=== PATIENT | male | born 1940 | race Caucasian/White ===

== ENCOUNTER 2016-07-25 07:22 | Day surgery (SDC) | payer MEDICARE ==
[2016-07-23 15:08] VITALS: BMI 24.9
[2016-07-25 08:05] LABS: INR 0.94 (0.93-1.08); PARTIAL THROMBOPLASTIN TIME 25.5 Seconds (23.7-30.8)
[2016-07-25 08:11] VITALS: TEMP 97.7
[2016-07-25] MEDS ORDERED: Midazolam 2 MG/2 ML VIAL ONE (09:54)
[2016-07-25] MEDS ORDERED: Lidocaine 2% Inj (20ml) ONE (09:54)
[2016-07-25] MEDS ORDERED: Iodixanol 320 MG/ML 200 ML BOTTLE IV ONE (09:55)
[2016-07-25] MEDS ORDERED: Sodium Chloride 0.9% 1,000 ML IV SCH (11:00)
[2016-07-25 13:05] VITALS: RESP 16; O2SAT 99
[2016-07-25 13:06] VITALS: BP 110/60; PULSE 67
--- NOTE | 2016-07-25 14:33 | CARDCATH ---
PROCEDURE DATE: 07/25/2016 PROCEDURES: 1. Selective left and right coronary angiography. 2. Left ventriculography. 3. Right femoral arteriography. 4. Angio-Seal deployment. HISTORY OF PRESENT ILLNESS: This is a 76-year-old man with multiple cardiac risk factors and a prior stress test which showed evidence of ____olateral ischemia. He is in need of surgery for removal of a thigh mass and preoperative cardiac evaluation was advised. INDICATION: Abnormal stress test. FINDINGS: HEMODYNAMICS: The aortic pressure was 140/76 with left ventricular pressure of 140/16. CORONARY ANATOMY: 1. The left mainstem was normal. 2. The left anterior descending artery had a 40% tapering in its early midportion. The vessel was l arge and wrapped around the apex. The diagonal branches had no significant disease. 3. The left circumflex artery was totally occluded in its early midportion. Left to left and right to left collaterals are noted to the distal obtuse marginal branches. 4. The right coronary artery was of moderate size and dominant. This had a tubular 50% lesion in th e early midportion of the vessel and mild irregularities distally. LEFT VENTRICULOGRAPHY: The left ventriculogram was performed with hand injection only in the MADDO[employer] pro jection. This revealed normal wall motion with an ejection fraction of 60%. Mitral regurgitation wa s not assessed. There was no aortic valve gradient noted on catheter pullback. RIGHT FEMORAL ARTERIOGRAPHY: Right femoral arteriogram revealed no evidence of significant disease a nd appropriate level of arterial puncture. The puncture site was then closed with deployment of an A ngio-Seal device. CONCLUSION: 1. Occluded left circumflex artery with right to left and left to left collaterals. 2. Moderate mid left anterior descending and mid right coronary artery disease. 3. Normal left ventricular systolic function. RECOMMENDATIONS: At this time, medical therapy and risk factor control were advised. From a cardiac standpoint, he appears stable to proceed with his surgery as planned. He is at mildly increased ris k, but this is clearly acceptable at the present time. He also appears optimized at this time as wel l. Continued followup will be arranged. Deyvi Louis MD cc:Kristy Davies MD; Doug Salguero MD [id number] TT: 07/25/2016 14:33:11 mn
== END 2016-07-25 15:10 | disposition home or self-care (01) ==
LOC: CATH 07:22
PROVIDERS: ATTEND Internal Medicine Cardiovascular Disease
DX: I25.10 Atherosclerotic heart disease of native coronary artery without angina pectoris (principal); I10 Essential (primary) hypertension; E11.8 Type 2 diabetes mellitus with unspecified complications; E78.5 Hyperlipidemia, unspecified; Z79.84 Long term (current) use of oral hypoglycemic drugs
CPT/HCPCS: 36415; 85610; 85730; 86850; 86900; 93458; 99152; C1760; C1769; C2629; J1644; J2250; J3010; J7040 ×2

== ENCOUNTER 2016-08-01 06:27 | Day surgery (SDC) | payer MEDICARE ==
[2016-07-18 09:20] VITALS: BMI 24.9
[2016-08-01] MEDS ORDERED: Bupivacaine 0.5% Inj(30mL) ONE (07:37)
[2016-08-01] MEDS ORDERED: Propofol 10 mg/ml Inj (20 ML) ONE (07:42)
[2016-08-01] MEDS ORDERED: Lidocaine 1% Inj (20ml) ONE (07:43)
[2016-08-01] MEDS ORDERED: Succinylcholine 200 mg/10 ml Inj IV ONE (07:50)
[2016-08-01] MEDS ORDERED: ePHEDrine 50 mg/ml Inj ONE (08:30)
[2016-08-01] MEDS ORDERED: Lactated Ringer's 1,000 ML IV SCH (09:39)
[2016-08-01] MEDS ORDERED: HYDROmorphone 0.5 mg/0.5 ml ISec IVP PRN (09:39)
--- NOTE | 2016-08-01 09:39 | PCM.SURG1 ---
Surgeon's Initial Post Op Note - Surgeon's Notes Surgeon: Jose M Branch Chief: Wendie PGY2, Nazia PGY1 Type of Anesthesia: General Endo, Local Pre-Operative Diagnosis: Left thigh mass Operative Findings: Large ~20cm symetrical, firm thigh mass Post-Operative Diagnosis: left thigh mass Operation Performed: excision of left thigh mass w. advancement flap closure Specimen/Specimens Removed: Left thigh mass Estimated Blood Loss: EBL {In ML}: 25 Blood Products Given: N/A Drains Used: No Drains Post-Op Condition: Good Date of Surgery/Procedure: 08/01/16 Time of Surgery/Procedure: 09:39
[2016-08-01 10:53] VITALS: PULSE 75; RESP 20; TEMP 97.5; O2SAT 95
--- NOTE | 2016-08-01 11:47 | OP ---
PROCEDURE DATE: 08/01/2016 PREOPERATIVE DIAGNOSIS: Large 15 cm x 12 cm left thigh mass. POSTOPERATIVE DIAGNOSIS: Large 15 x 12 cm left thigh mass. PROCEDURE PERFORMED: 1. Wide and deep excision of the left thigh mass. 2. Advancement flap closure of a 15 cm x 12 cm wound on the left thigh. SURGEON: Doug Salguero MD. GLOBAL LOGISTICS MANAGER: Dr. Pressley and Dr. Degroot. ANESTHESIOLOGIST: Dr. Douglass. ANESTHESIA: General endotracheal anesthesia. ESTIMATED BLOOD LOSS: Minimal. SPECIMEN: Left thigh mass. INDICATION: The patient is a 76-year-old male with history of uncomfortable mass on the left anterior thigh, which he noticed several months ago, and has been slowly increasing in size. The patient was concerned when the mass became fairly large and came for evaluation when he was scheduled for the excision of the mass. DESCRIPTION OF PROCEDURE: The patient was brought to the operating room and placed on the operating table in supine position. The patient was connected to the EKG, blood pressure, and pulse oximeter monitors. The patient then underwent general endotracheal anesthesia and was prepped and draped in usual sterile fashion. First, a standard timeout procedure took place, and everybody in the room agreed as to the patient's identity, diagnosis, and procedure to be performed. The side of surgery was marked with initials. First, a marker was used in order to [place] the line of excision where this was marked at about 2.5 cm outside the area where there were any changes. Once those lines were made and continued for the entire mass, I then proceeded with infiltration of that skin with lidocaine. Next, using #15 blade, an incision was made along the previously marked line, and the incision was carried through into the subcutaneous fat. Using electrocautery, the skin outside the lesion was now carefully elevated with some of the underlying fat, and the line of incision was carried down to the muscle fascia. Once this was done around the entire lesion, I then carefully proceeded with mobilizing the lesion off the fascia. It appeared that there were no adhesions between the mass and the fascia. There was no evidence of any infiltration in the area that would indicate of a spread of the mass into the underlying muscle and fascia. Once it was completely detached from the fascia, the area was copiously irrigated, and all the bleeding points were cauterized. We then proceeded raising flaps, both medially all the way into the groin and laterally on the lateral aspect of the thigh. About 10 cm-15 cm of the skin with fat were mobilized laterally and medially in order to reapproximate this wound and closed it. The wound was then closed using interrupted 2-0 Vicryl stitches for deep dermal layer, 2-0 dissolvable barbed stitch for the skin and several interrupted vertical mattress nylon stitches for reinforcement of the wound. Dermabond dressing was applied to the wound. The patient tolerated the procedure well and there were no complications. The mass was sent for pathology. The patient was awakened, extubated, and transferred to recovery room for further observation. Doug Salguero MD cc: [id number] TT: 08/01/2016 11:46:51 jn MTDD
[2016-08-01 12:37] VITALS: BP 142/68
== END 2016-08-01 12:30 | disposition home or self-care (01) ==
LOC: SDS 06:27
PROVIDERS: ATTEND General Practice
DX: C83.35 Diffuse large B-cell lymphoma, lymph nodes of inguinal region and lower limb (principal); E11.9 Type 2 diabetes mellitus without complications; I10 Essential (primary) hypertension
CPT/HCPCS: 14021; 88305; 88331; J0330; J0690; J1170; J1885; J2704; J3010; J7120 ×2

== ENCOUNTER 2016-09-26 11:33 | Day surgery (SDC) | payer MEDICARE ==
[2016-07-23 15:08] VITALS: BMI 24.9
[2016-09-26 11:57] LABS: ADD MANUAL DIFF? NO
[2016-09-26 11:58] LABS: BASO # 0.04 K/mm3 (0.0-2.0); BASO % 0.5 % (0.0-3.0); EOS # 0.3 (0.0-0.7); EOS % 4.1 % (1.5-5.0); GRAN # 4.47 (1.4-6.5); GRAN % 61.1 % (50.0-68.0); HEMATOCRIT 38.1 % (42.0-52.0); LYMPH # 1.9 (1.2-3.4); LYMPH % 26.1 % (22.0-35.0); MEAN CELL VOLUME 89.4 fL (80.0-105.0); MEAN CORPUSCULAR HEMOGLOBIN 30.5 pg (25.0-35.0); MEAN CORPUSCULAR HGB CONC 34.1 g/dl (31.0-37.0); MONO # 0.6 (0.1-0.6); MONO % 8.2 % (1.0-6.0); PLATELET COUNT 192 10^3/uL (120.0-450.0); RED CELL DISTRIBUTION WIDTH 12.8 % (11.5-14.5); WHITE BLOOD COUNT 7.3 10^3/ul (4.5-11.0)
[2016-09-26 12:08] LABS: BLOOD UREA NITROGEN 18 mg/dL (7-21); CALCIUM 9.1 mg/dL (8.4-10.5); CARBON DIOXIDE 24 mmol/L (21-33); CHLORIDE 100 mmol/L (98-107); GFR AFRICAN-AMERICAN > 60; GLUCOSE,RANDOM 156 mg/dL (70-110); POTASSIUM 4.7 mmol/L (3.6-5.0); SODIUM 134 mmol/L (132-148)
[2016-09-26 12:09] LABS: INR 0.94 (0.93-1.08); PARTIAL THROMBOPLASTIN TIME 25.3 Seconds (23.7-30.8)
[2016-09-26] MEDS ORDERED: Lidocaine 2% Inj (20ml) ONE (12:09)
[2016-09-26 12:33] VITALS: TEMP 97.6
--- NOTE | 2016-09-26 12:45 | CP.SDSHP ---
Same Day Surgery H & P - History Proposed Procedure: Venous port Pre-Op Diagnosis: Lymphoma, need venous port for chemo - Previous Medical/Surgical History Cardiac: ASHD/CAD Endocrine/Metabolic: Diabetes Previous Surgical History: left thigh surg to remove tumor which was diagnosed as lymphoma, cardiac cath Apirl 2017 with single vessel LCX disease with colatterals - Allergies Allergies: Allergies No Known Allergies Allergy (Verified 11/30/14 08:30) - Current Medications Current Medications: Glipizide, metformin, metoprolol, ecotrin, simvastatin, zestril, mvt. - Physical Exam Vital Signs: Vital Signs 09/26/16 12:23 Temperature 97.6 F Pulse Rate 81 Respiratory 20 Rate Blood Pressure 140/77 O2 Sat by Pulse 98 Oximetry Mental Status: Alert & Oriented x3 Neuro: WNL Heart: WNL Lungs: WNL GI: WNL - {Optional Preform as Required} Abdomen: WNL Other Pertinent Findings: Left thigh scar - Impression Impression: 76 M with h/o single vessel CAD with collaterals, not symptomatic, NIDDM, HTN with recent dianosis of Lymphoma for venous port insertion under, mild sedation and local. Would recommend to his metoprolol dose prior to surg, which has been ordered. Other alba no contraindication for surg. Short Stay Discharge - Short Stay Discharge Admitting Diagnosis/Reason for Visit: LYMPHOMA C85.80 Disposition: HOME/ ROUTINE Referrals: Kristy Davies MD [Primary Care Provider] -
[2016-09-26] MEDS ORDERED: Midazolam 2 MG/2 ML VIAL ONE ×2 (13:21→13:41)
[2016-09-26] MEDS ORDERED: Oxycodone/Acetaminophen 5/325 mg Tab PO PRN (14:25)
[2016-09-26] MEDS ORDERED: Sodium Chloride 0.45% 1,000 ML IV SCH (14:30)
[2016-09-26 14:44] VITALS: RESP 20
--- NOTE | 2016-09-26 14:47 | VASCULAR ---
PROCEDURE: Ultrasound and fluoroscopic right internal jugular venous access port. CLINICAL HISTORY: Diffuse B-cell lymphoma left thigh.Venous port for chemotherapy. PHYSICIAN(S): Mitchell Wilkerson M.D. TECHNIQUE: The relative risks and indications of the procedure were explained to the patient his and consent obtained. The patient was placed supine on the arteriogram table and the right neck and chest prepped and draped in the usual sterile fashion. Conscious sedation monitoring was provided throughout the procedure by a nurse. Antibiotics were given prior to the procedure. Under direct ultrasound guidance, the right internal jugular vein was punctured with a micro-puncture set. A 0.035 angled Glidewire was advanced into the IVC. A 4 cm incision was below the right clavicle and the pocket blunted dissected. A 8 [place] single-lumen catheter, 22 cm long, was advanced to the SVC/RA junction. The catheter was trimmed and attached to the port. The port aspirates and injects easily. The port was placed in the pocket and closed in 2 layers. The patient tolerated the procedure well. IMPRESSION: Ultrasound and fluoroscopically placed right internal jugular venous access port.
[2016-09-26 14:56] VITALS: O2SAT 99
[2016-09-26 15:40] VITALS: BP 140/67; PULSE 69
== END 2016-09-26 15:30 | disposition home or self-care (01) ==
LOC: SDSVAS 11:33
PROVIDERS: ATTEND Radiology Vascular & Interventional Radiology
DX: C85.95 Non-Hodgkin lymphoma, unspecified, lymph nodes of inguinal region and lower limb (principal); I25.10 Atherosclerotic heart disease of native coronary artery without angina pectoris; E11.9 Type 2 diabetes mellitus without complications
CPT/HCPCS: 36415; 36561; 76937; 77001; 80048; 85025; 85610; 85730; C1769; C1788; J0690; J1644; J2250; J2405; J3010; J7030

== ENCOUNTER 2017-03-21 09:19 | Inpatient (IN) | payer MEDICARE ==
[2017-03-21] MEDS ORDERED: NOREPINEPHRINE BIT/0.9 % NACL 4 MG/250 ML BAG IV ONE (09:27)
[2017-03-21] MEDS ORDERED: Ketamine 10 mg/ml Inj (20 ml) ONE (09:29)
[2017-03-21 09:30] VITALS: BMI 23.5
[2017-03-21] MEDS ORDERED: Vancomycin 1gm in NS 250ml 1 GM/250 ML BAG IVPB STA (09:37)
[2017-03-21] MEDS ORDERED: Piperacill/Tazo 4.5gm in NS 4.5 GM/100 ML BAG IVPB STA (09:37)
[2017-03-21] MEDS ORDERED: Sodium Chloride 0.9% 1,000 ML IV ONE (09:37)
[2017-03-21 09:45] LABS: VENOUS BLOOD GAS BASE EXCESS 3.2 mmol/L (0.0-2.0); VENOUS BLOOD PH 7.36 (7.32-7.43)
--- NOTE | 2017-03-21 09:45 | ED PDOC ---
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 The EMS states the patient last night began feeling weak and weak with no injuries. Family denies any LOC or changes in behavior after fall. This morning the family found the patient lethargic and unresponsive, family states the patient vomited this morning. HPI & ROS limited due to patient's clinical condition. PMD: Dr. Lopez Hem/Onc: Dr. Huang Algorithm Developer: Dr. Louis/Antonio Time/Duration: Prior to Arrival Symptom Onset: Sudden Symptom Course: Unchanged Activities at Onset: Rest Context: Home Past Medical History - Provider Review Nursing Documentation Reviewed: Yes - Infectious Disease Hx of Infectious Diseases: None - Cardiac Hx Cardiac Disorders: Yes Hx Hypertension: Yes Hx Pacemaker: No - Pulmonary Hx Respiratory Disorders: No - Neurological Hx Neurological Disorder: No Hx Paralysis: No - HEENT Hx HEENT Disorder: No - Renal Hx Renal Disorder: No - Endocrine/Metabolic Hx Endocrine Disorders: Yes Hx Diabetes Mellitus Type 2: Yes - Hematological/Oncological Hx Blood Disorders: Yes Hx Blood Transfusions: No Hx Cancer: Yes (Stage 1 lymphoma) Hx Chemotherapy: Yes (03/16/2017) - Musculoskeletal/Rheumatological Hx Musculoskeletal Disorders: No - Gastrointestinal Hx Gastrointestinal Disorders: No - Genitourinary/Gynecological Hx Genitourinary Disorders: No - Psychiatric Hx Emotional Abuse: No Hx Physical Abuse: No Hx Substance Use: No - Surgical History Other/Comment: R chest port - Anesthesia Hx Anesthesia: Yes Hx Anesthesia Reactions: No Hx Malignant Hyperthermia: No - Suicidal Assessment Feels Threatened In Home Enviroment: No Family/Social History - Physician Review Nursing Documentation Reviewed: Yes Family/Social History: No Known Family HX Smoking Status: Never Smoked Hx Alcohol Use: No Hx Substance Use: No Allergies/Home Meds Allergies/Adverse Reactions: Allergies No Known Allergies Allergy (Verified 03/21/17 11:27) Home Medications: Home Meds Medication Instructions Recorded Confirmed Glipizide 10 mg PO BID 11/29/14 03/21/17 Metformin HCl [Metformin] 500 mg PO BID 11/29/14 03/21/17 Simvastatin 20 mg PO HS 11/29/14 03/21/17 Aspirin [Ecotrin] 81 mg PO DAILY 07/18/16 03/21/17 Lisinopril [Zestril] 10 mg PO DAILY 07/18/16 03/21/17 Metoprolol Tartrate [Lopressor] 25 mg PO DAILY 07/18/16 03/21/17 Multivit-Min/FA/Lycopen/Lutein 1 tab PO DAILY 07/18/16 03/21/17 [Centrum Silver Tablet] Allopurinol [Zyloprim] 100 g PO DAILY 03/21/17 03/21/17 Review of Systems - Physician Review All systems were reviewed & negative as marked: Yes - Review of Systems Systems not reviewed;Unavailable: Acuity of Condition Physical Exam Vital Signs Reviewed: Yes Vital Signs Temp Pulse Resp BP Pulse Ox 03/21/17 11:15 102.5 F H 138 H 16 88/60 L 97 03/21/17 11:14 101.9 F H 03/21/17 11:00 138 H 16 88/60 L 97 03/21/17 10:45 136 H 16 77/44 L 97 03/21/17 10:30 138 H 16 72/42 L 97 03/21/17 10:15 131 H 16 74/43 L 97 03/21/17 10:02 148 H 16 97/48 L 97 03/21/17 09:20 102.5 F H 150 H 11 L 83/51 L 90 L Temperature: Febrile Blood Pressure: Hypotensive Pulse: Tachycardic Respiratory Rate: Apneic Appearance: Positive for: Ill-Appearing Pain Distress: None Mental Status: Positive for: Comatose, other (unresponsive) Finger Stick Blood Glucose: 322 - Systems Exam Head: Present: Atraumatic, Normocephalic Pupils: Present: PERRL (4 mm) Conjunctiva: Present: Normal Ears: Present: Normal Mouth: Present: Moist Mucous Membranes Pharnyx: Present: Normal Nose (External): Present: Atraumatic Neck: Present: Normal Range of Motion. No: MIDLINE TENDERNESS Respiratory/Chest: Present: Rales (bilaterally), Other (crackles bilaterally; right chest wall port ) Cardiovascular: Present: Regular Rate and Rhythm, Normal S1, S2. No: Murmurs Abdomen: Present: Normal Bowel Sounds. No: Tenderness, Distention, Peritoneal Signs, Other (no pelvic bone tenderenss) Upper Extremity: Present: Normal Inspection. No: Cyanosis, Edema Lower Extremity: Present: Normal Inspection. No: Edema Neurological: Present: Other (Unresponsive; Moans to painful stimuli) Skin: Present: Warm, Dry, Normal Color. No: Rashes Medical Decision Making ED Course and Treatment: 03/21/17 09:30 Impression: 76 year old male unresponsive with difficulties breathing Differential Diagnosis included but are not limited to: Septic Shock in Respiratory distress r/o Pneumonia vs. CHF exacerbation vs Hypercapnea Plan: -- VBG -- EKG -- Chest X-ray -- Labs -- Norepinephrine, IV Fluids, Vancomycin, Piperacill/Tazo -- Urinalysis -- Procalcitonin -- Patient is unresponsive, but moans to painful external stimuli. The patient does not have any evidence of trauma. There is impending respiratory failure so will intubate to protect the airway. -- Reassess and disposition Progress Notes: 03/21/17 09:17 Patient was intubated secondary to respiratory distress and unresponsiveness with 92% with BBM prior to intubation. PROCEDURE: INTUBATION Performed by the emergency provider Consent: Discussion of the risks, benefits, and alternatives to the procedure, along with informed consent was precluded by the urgency of the procedure and the patient condition. Timeout: A timeout to verify the correct patient, procedure, and site was performed. Indication: Impending respiratory failure Pre-oxygenation: [id number] Medications:. See MAR for details. ETT Size: 7.5 Confirmation: Glidescope used. Cords directly visualized as tube passed, good bilateral breath sounds, positive CO2 detector color change, tube fogging, adequate chest rise, improving pulse oximetry reading, improved skin color, and absence of gastric sounds,. ETT Secured: The cuff was inflated and the tube was secured appropriately at a distance of 21 cm at the lip. Post-Procedure: There were no immediate complications. CXR Confirmation: YES 03/21/17 09:40 NG tube and Vega placed by RN.The patient's blood pressure was not improving with IV fluids by EMS and on arrival. Started patient stat on Levaphed and titrate up as needed. IVF continued via port. BP improved with Levophed. Patient's WBC -1 and LA is elevated. Patient is meetings SIRS criteria and our Sepsis protocol so a code sepsis was called. IVF continued on peripheral line and port. 03/21/17 10:[address] Morgan, PMD, who will admit under her service. She recommends Dr. Alvarez/Snehal for Cardiology. Case discussed with Dr. Huang, Hem/Onc who reported recent chemotherapy. Case discussed with Dr. Velasco, ICU Physician, who accepted the case to the ICU. 03/21/17 11:[address] Alvarez who recently reviewed patients most recent catheter report. Dr. Alvarez states the patients troponin is elevated most likely due to sepsis. Recommends aspirin. - Critical Care Critical Care Minutes: 60 minutes - Lab Interpretations Lab Results: 03/21/17 09:36 03/21/17 09:36 Lab Results 03/21/17 09:36: TSH 3rd Generation 0.37 L 03/21/17 09:36: Sodium 129 L, Chloride 88 L, Potassium 4.3, Carbon Dioxide 28, Anion Gap 17, BUN 28 H, Creatinine 1.9 H, Est GFR ( Amer) 42, Est GFR ( Non-Af Amer) 35, Random Glucose 327 H* D, Calcium 8.9, Phosphorus 5.0 H, Magnesium 1.5 L, Total Bilirubin 0.4, AST 103 H D, ALT 97 H, Alkaline Phosphatase 92, Troponin I 0.63 H*, NT-Pro-B Natriuret Pep 3850 H, Total Protein 5.5 L, Albumin 3.0, Globulin 2.4, Albumin/Globulin Ratio 1.3 03/21/17 09:36: pO2 37, VBG pH 7.36, VBG pCO2 53.0, VBG HCO3 29.9 H, VBG Total CO2 31.5 H, VBG O2 Sat (Calc) 69.4 H, VBG Base Excess 3.2 H, VBG Potassium 4.2, Sodium 131.0 L, Chloride 91.0 L, Glucose 355 H, Lactate 5.3 H*, FiO2 21.0, Venous Blood Potassium 4.2 03/21/17 09:36: PT 15.6 H, INR 1.41 H, APTT 28.2 03/21/17 09:36: WBC 1.0 L* D, RBC 3.42 L, Hgb 9.6 L, Hct 30.0 L, MCV 87.7, MCH 28.1, MCHC 32.0, RDW 16.2 H, Plt Count 133, MPV 9.9, Gran % 29.4 L, Lymph % ( Auto) 42.1 H, [place] % (Auto) 26.3 H, Eos % (Auto) 1.1 L, Baso % (Auto) 1.1, Gran # 0.28 L, Lymph # 0.4 L, [place] # 0.3, Eos # 0.0, Baso # 0.01, Neutrophils % ( Manual) 35 L, Lymphocytes % (Manual) 45 H, Atypical Lymphs % 10 H, Monocytes % ( Manual) 10 H, Platelet Evaluation Normal, Large Platelets Present, Polychromasia Slight, Hypochromasia 1+, Poikilocytosis (manual Slight, Anisocytosis (manual) 1+ - RAD Interpretation Radiology Orders: 03/21/17 09:37 CHEST PORTABLE [RAD] Stat 03/21/17 09:52 HEAD W/O CONTRAST [CT] Stat - Medication Orders Current Medication Orders: Heparin Sodium (Porcine) (Heparin) 5,000 units SC Q8H BIANKA PRN Reason: Protocol Last Admin: 03/21/17 12:48 Dose: 5,000 units Subcutaneous Administrations Document 03/21/17 12:48 [facility] (Rec: 03/21/17 12:48 [facility] [id number]) Injection Site MAR Injection Site Right Abdomen Charges for Administration # of Subcutaneous Administrations 1 Hydrocortisone Sodium Succinate (Solu-Cortef) 50 mg IVP Q6 BIANKA NOREPINEPHRINE BIT/0.9 % NACL (Levophed 4 Mg/ 250 Ml Ns Premixed) 4 mg in 250 mls @ 15 mls/hr IV .[id number] PRN; Protocol; 4 MCG/MIN PRN Reason: TITRATE PER MD ORDER Last Admin: 03/21/17 15:08 Dose: 15 mcg/min, 56.25 mls/hr eMAR Start Stop Document 03/21/17 15:08 [facility] (Rec: 03/21/17 15:08 [facility] [id number]) Intravenous Solution Start Date 03/21/17 Start Time 15:08 Titration Intervention Document 03/21/17 15:08 [facility] (Rec: 03/21/17 15:08 [facility] [id number]) Titration Intake Cumulative Intake (Rx) 250 Waste Amount 0 Container Volume 250 Titration Dosing Titration Dose 15 IV Rate 56.25 Intake/Decrease Started/Running Cumulative Dose 4 Azithromycin (Zithromax 500mg In Ns) 500 mg in 250 mls @ 167 mls/hr IVPB DAILY BIANKA PRN Reason: Protocol Last Admin: 03/21/17 12:49 Dose: 167 mls/hr eMAR Start Stop Document 03/21/17 12:49 [facility] (Rec: 03/21/17 12:49 [facility] [id number]) Intravenous Solution Start Date 03/21/17 Start Time 13:49 End Date 03/21/17 End time 15:19 Total Infusion Time 90 Sodium Chloride (Sodium Chloride 0.9%) 1,000 mls @ 150 mls/hr IV .Q6H40M BIANKA Last Admin: 03/21/17 11:07 Dose: 150 mls/hr eMAR Start Stop Document 03/21/17 11:07 [facility] (Rec: 03/21/17 11:08 RG [id number]) Intravenous Solution Start Date 03/21/17 Start Time 11:07 Vasopressin 20 units/ Sodium (Chloride) 101 mls @ 9.09 mls/hr IV .Q11H7M BIANKA; 0.03 U/MIN PRN Reason: Protocol Last Admin: 03/21/17 12:46 Dose: 9.09 mls/hr eMAR Start Stop Document 03/21/17 12:46 [facility] (Rec: 03/21/17 12:47 [facility] [id number]) Intravenous Solution Start Date 03/21/17 Start Time 12:47 End Date 03/21/17 MAR Blood Pressure Document 03/21/17 12:46 [facility] (Rec: 03/21/17 12:47 [facility] [id number]) Blood Pressure Blood Pressure (100/60-150/90) 105/56 Pantoprazole Sodium (Protonix Inj) 40 mg IVP DAILY BIANKA Last Admin: 03/21/17 12:47 Dose: 40 mg IVP Administration Document 03/21/17 12:47 [facility] (Rec: 03/21/17 12:47 [id number] Charges for Administration # of IVP Administrations 1 Discontinued Medications Acetaminophen (Tylenol 325 Mg Supp) 650 mg RC STAT STA Stop: 03/21/17 10:21 Last Admin: 03/21/17 12:15 Dose: 650 mg Comments: Duplicate Aspirin (Aspirin Supp) 300 mg RC STAT STA Stop: 03/21/17 11:33 Last Admin: 03/21/17 12:48 Dose: 300 mg MAR Pain/Vitals Document 03/21/17 12:48 [facility] (Rec: 03/21/17 12:48 [place] [id number]) Pain Reassessment Is This A Pain ReAssessment? No Sleep Is patient sleeping during reassessment? Yes Re-Assess: MAR Pain/Vitals Document 03/21/17 13:48 [facility] (Rec: 03/21/17 15:03 [place] [id number]) Pain Reassessment Is This A Pain ReAssessment? No Sleep Is patient sleeping during reassessment? Yes Hydrocortisone Sodium Succinate (Solu-Cortef) 50 mg IVP STAT ONE Stop: 03/21/17 12:01 Last Admin: 03/21/17 12:47 Dose: 50 mg IVP Administration Document 03/21/17 12:47 [facility] (Rec: 03/21/17 12:47 [place] [id number]) Charges for Administration # of IVP Administrations 1 Sodium Chloride (Sodium Chloride 0.9%) 1,000 mls @ 2,000 mls/hr IV .Q30M ONE Stop: 03/21/17 10:06 Last Admin: 03/21/17 09:40 Dose: 2,000 mls/hr eMAR Start Stop Document 03/21/17 09:40 [facility] (Rec: 03/21/17 10:40 RG [id number]) Intravenous Solution Start Date 03/21/17 Start Time 09:45 Vancomycin HCl (Vancomycin 1gm) 1 gm in 250 mls @ 167 mls/hr IVPB STAT STA PRN Reason: Protocol Stop: 03/21/17 11:06 Last Admin: 03/21/17 11:04 Dose: 167 mls/hr eMAR Start Stop Document 03/21/17 11:04 RG (Rec: 03/21/17 11:07 RG [id number]) Intravenous Solution Start Date 03/21/17 Start Time 11:04 Piperacillin Sod/Tazobactam Sod (Zosyn 4.5 Gm In Ns 100ml) 4.5 gm in 100 mls @ 200 mls/hr IVPB STAT STA PRN Reason: Protocol Stop: 03/21/17 10:06 Last Admin: 03/21/17 10:50 Dose: 200 mls/hr eMAR Start Stop Document 03/21/17 10:50 RG (Rec: 03/21/17 10:51 RG [id number]) Intravenous Solution Start Date 03/21/17 Start Time 10:12 End Date 03/21/17 Sodium Chloride (Sodium Chloride 0.9%) 1,000 mls @ 999 mls/hr IV .Q1H1M STA Stop: 03/21/17 11:01 Last Admin: 03/21/17 10:49 Dose: 999 mls/hr eMAR Start Stop Document 03/21/17 10:49 RG (Rec: 03/21/17 10:50 [id number]) Intravenous Solution Start Date 03/21/17 Start Time 10:12 End Date 03/21/17 Meropenem 500 mg/ Sodium (Chloride) 50 mls @ 100 mls/hr IVPB Q12 BIANKA PRN Reason: Protocol Stop: 03/21/17 11:29 Meropenem 500 mg/ Sodium (Chloride) 100 mls @ 100 mls/hr IVPB Q12 BIANKA PRN Reason: Protocol Stop: 03/21/17 11:59 Last Admin: 03/21/17 12:48 Dose: 100 mls/hr eMAR Start Stop Document 03/21/17 12:48 [facility] (Rec: 03/21/17 12:49 [facility] [id number]) Intravenous Solution Start Date 03/21/17 Start Time 12:49 End Date 03/21/17 End time 13:49 Total Infusion Time 60 Magnesium Sulfate 2 gm/ Sodium (Chloride) 104 mls @ 102 mls/hr IVPB ONCE ONE Stop: 03/21/17 14:59 Last Admin: 03/21/17 15:07 Dose: 102 mls/hr eMAR Start Stop Document 03/21/17 15:07 [facility] (Rec: 03/21/17 15:08 [facility]BY [id number]) Intravenous Solution Start Date 03/21/17 Start Time 15:07 End Date 03/21/17 End time 16:09 Total Infusion Time 62 Pneumococcal Polyvalent Vaccine (Pneumovax 23 Vaccine) 0.5 ml IM .ONCE ONE Stop: 03/21/17 13:41 - Scribe Statement The provider has reviewed the documentation as recorded by the Maryibsarah Molina Provider Scribe Attestation: All medical record entries made by the Scribe were at my direction and personally dictated by me. I have reviewed the chart and agree that the record accurately reflects my personal performance of the history, physical exam, medical decision making, and the department course for this patient. I have also personally directed, reviewed, and agree with the discharge instructions and disposition. Disposition/Present on Arrival - Present on Arrival Any Indicators Present on Arrival: No History of DVT/PE: No History of Uncontrolled Diabetes: No Urinary Catheter: No History of Decub. Ulcer: No History Surgical Site Infection Following: None - Disposition Have Diagnosis and Disposition been Completed?: Yes Diagnosis: Septic shock Disposition: HOSPITALIZED Disposition Time: 10:24 Patient Plan: Admission, ICU Condition: SERIOUS
[2017-03-21] MEDS ORDERED: Etomidate 20 mg/10ml Inj IV ONE (09:47)
[2017-03-21] MEDS ORDERED: Succinylcholine 200 mg/10 ml Inj IV ONE (09:47)
[2017-03-21 09:50] LABS: BASO # 0.01 K/mm3 (0.0-2.0); BASO % 1.1 % (0.0-3.0); EOS % 1.1 % (1.5-5.0); GRAN # 0.28 (1.4-6.5); GRAN % 29.4 % (50.0-68.0); LYMPH # 0.4 (1.2-3.4); LYMPH % 42.1 % (22.0-35.0); MEAN CELL VOLUME 87.7 fl (80.0-105.0); MEAN CORPUSCULAR HEMOGLOBIN 28.1 pg (25.0-35.0); MEAN PLATELET VOLUME 9.9 fl (7.0-11.0); MONO # 0.3 (0.1-0.6); MONO % 26.3 % (1.0-6.0); PLATELET COUNT 133 10^3/uL (120.0-450.0); RED CELL DISTRIBUTION WIDTH 16.2 % (11.5-14.5)
[2017-03-21 10:00] LABS: INR 1.41 (0.93-1.08); PARTIAL THROMBOPLASTIN TIME 28.2 Seconds (25.1-36.5)
[2017-03-21] MEDS ORDERED: Sodium Chloride 0.9% 1,000 ML IV STA (10:01)
[2017-03-21 10:17] LABS: ALB/GLOB RATIO 1.3 (1.1-1.8); BILIRUBIN,TOTAL 0.4 mg/dL (0.2-1.3); CALCIUM 8.9 mg/dL (8.4-10.5); MAGNESIUM 1.5 mg/dL (1.7-2.2); POTASSIUM 4.3 mmol/L (3.6-5.0); TOTAL PROTEIN 5.5 g/dL (5.8-8.3)
--- NOTE | 2017-03-21 10:38 | RAD ---
HISTORY: Sepsis Patient COMPARISON: 07/26/2016. FINDINGS: The endotracheal tube terminates 4 cm proximal to the kesha. The right MediPort terminates in the right atrium. LUNGS: The lungs are well inflated. There is pulmonary venous congestion. There is confluent airspace disease in the right medial lung base. There is left lower lobe subsegmental atelectasis. PLEURA: No significant pleural effusion identified, no pneumothorax apparent. CARDIOVASCULAR: Normal. OSSEOUS STRUCTURES: No significant abnormalities. VISUALIZED UPPER ABDOMEN: Normal. OTHER FINDINGS: None. IMPRESSION: Endotracheal tube terminates 4 cm proximal to the kesha and the right MediPort terminates in the right atrium. More confluent airspace disease in the right medial lung base may represent pneumonia.
[2017-03-21 10:44] LABS: TROPONIN I 0.63 ng/mL
[2017-03-21] MEDS ORDERED: Meropenem 500 MG in Sodium Chloride 0.9% 100 ML IVPB SCH (11:00)
[2017-03-21] MEDS ORDERED: Meropenem 500 MG in Sodium Chloride 0.9% 50 ML IVPB SCH (11:00)
[2017-03-21] MEDS: Sodium Chloride 0.9% 1,000 ML IV SCH ×2 (11:07→17:00)
[2017-03-21 11:10] LABS: URINE BILIRUBIN NEGATIVE (NEGATIVE); URINE BLOOD MODERATE (NEGATIVE); URINE GLUCOSE (UA) >=1000 mg/dL (NEGATIVE); URINE KETONE NEGATIVE (NEGATIVE); URINE LEUKOCYTE ESTERASE NEGATIVE Leu/uL (NEGATIVE); URINE PROTEIN TRACE mg/dL (<30 mg/dL); URINE UROBILINOGEN 0.2 E.U./dL (<1 E.U./dL)
[2017-03-21 11:13] LABS: URINE APPEARANCE CLEAR (CLEAR); URINE COLOR YELLOW (YELLOW)
[2017-03-21 11:18] LABS: URINE WBC 0 - 2 /hpf (0-6)
[2017-03-21 11:19] LABS: URINE BACTERIA TRACE (NEG)
[2017-03-21] MEDS: NOREPINEPHRINE BIT/0.9 % NACL 4 MG/250 ML BAG IV PRN ×4 (11:20→22:17)
[2017-03-21 11:25] LABS: ATYPICAL LYMPHOCYTE 10 % (0.0-0.0); NEUTROPHIL 35 % (50.0-70.0)
[2017-03-21 11:26] LABS: ANISOCYTOSIS 1+; HYPOCHROMIA 1+; PLATELET ESTIMATE NORMAL (NORMAL); POLYCHROMASIA SLIGHT
[2017-03-21 11:27] LABS: LARGE PLATELETS PRESENT; POIKILOCYTOSIS SLIGHT
--- NOTE | 2017-03-21 11:51 | CT ---
PROCEDURE: CT HEAD WITHOUT CONTRAST. HISTORY: ams COMPARISON: None available. TECHNIQUE: Axial computed tomography images were obtained through the head/brain without intravenous contrast. Radiation dose: Total exam DLP = 903 mGy-cm. This CT exam was performed using one or more of the following dose reduction techniques: Automated exposure control, adjustment of the mA and/or kV according to patient size, and/or use of iterative reconstruction technique. FINDINGS: HEMORRHAGE: No intracranial hemorrhage. BRAIN: No mass effect or edema. No atrophy or chronic microvascular ischemic changes. VENTRICLES: Unremarkable. No hydrocephalus. CALVARIUM: Unremarkable. PARANASAL SINUSES: Unremarkable as visualized. No significant inflammatory changes. MASTOID AIR CELLS: Unremarkable as visualized. No inflammatory changes. OTHER FINDINGS: None. IMPRESSION: No acute findings
[2017-03-21] MEDS: Azithromycin 500MG/NS 250ml 500 MG/250 ML BAG IVPB SCH (12:49)
[2017-03-21] MEDS ORDERED: Pneumococcal 23-Valent Vaccine IM ONE (13:40)
[2017-03-21] MEDS ORDERED: Influenza Vaccine 60 mcg/0.5 mL SYR (4YR UP) IM ONE (13:40)
[2017-03-21 13:58] LABS: VENOUS BLOOD PH 7.28 (7.32-7.43)
[2017-03-21] MEDS ORDERED: Magnesium Sulfate 2 GM in Sodium Chloride 0.9% 100 ML IVPB ONE (13:58)
--- NOTE | 2017-03-21 14:06 | PCM.SEPTIC ---
Sepsis Progress Note - Reassessment Type Date of Evaluation: 03/21/17 Time of Evaluation: 14:12 Reassessment Type: Non-invasive reassessment - Non Invasive Reassessment Were the most recent vital sign reviewed: Yes Vital Sign (Latest): Temp Pulse Resp BP Pulse Ox 102.5 F H 126 H 15 101/49 L 99 03/21/17 12:55 03/21/17 12:55 03/21/17 12:55 03/21/17 12:55 03/21/17 12:10 Cardiovascular: Yes: Tachycardia Respiratory: Yes: Decreased Breath Sounds. No: Wheezing Capillary Refill: Normal (Less than 2 sec) Pulses: Normal Radial, Normal Dorsalis Pedis, Normal Posterior Tibialis Skin: Normal Color, Warm, Dry Was a bedside cardiovascular ultrasound performed within 6 hours after the presentation of septic shock: Yes Type performed: Echocardiogram Was a passive leg raise performed or was a fluid challenge performed within 6 hrs of the initial fluid bolus: Yes Fluid Challenge performed: Yes
--- NOTE | 2017-03-21 14:09 | CP.PCM.CON ---
History of Present Illness - History of Present Illness History of Present Illness: CRITICAL CARE CONSULT NOTE HPI: patient is 76yo male with PMHx of Dm, HTN, HLD, Lymphoma on chemo, last regiment one month ago, presents with AMS and fever. As per the family patient was difficult to arise this morning, had fever 102.1, and cough productive of sputum. Pt was brought to the ER, found obtunded, hypotensive, SBP 70s, intubated for airway protection, given 4L NS bolus, started on Levophed 15mcg/ min. Pt is currently intubated, sedated, on vasopressors. PMHx: DM, HTN, Lymphoma PSHx: as above Allergies: NKDA Meds: as per EMR ROS: cannot obtain, intubated Review of Systems - Review of Systems Review of Systems: as per HPI Past Patient History - Infectious Disease Hx of Infectious Diseases: None - Past Social History Smoking Status: Former Smoker - CARDIAC Hx Cardiac Disorders: Yes Hx Hypercholesterolemia: Yes Hx Hypertension: Yes Hx Pacemaker: No - PULMONARY Hx Respiratory Disorders: No Hx Asthma: Yes ( A CHILD) - NEUROLOGICAL Hx Neurological Disorder: No - HEENT Hx HEENT Problems: No - RENAL Hx Chronic Kidney Disease: No - ENDOCRINE/METABOLIC Hx Endocrine Disorders: Yes Hx Diabetes Mellitus Type 2: Yes - HEMATOLOGICAL/ONCOLOGICAL Hx Blood Disorders: Yes Hx Cancer: Yes (Stage 1 lymphoma) Hx Chemotherapy: Yes (03/12/2017) - INTEGUMENTARY Hx Dermatological Problems: Yes Other/Comment: SCAR TO LEFT THIGH-REMOVAL OF A LARGE MASS,SCAR TO BUTTOCK AREA HAD A BOIL DID I/D 1976. PORT TO RIGHT CHEST WALL. 03-21-17 PLACED A CENTRAL LINE. - MUSCULOSKELETAL/RHEUMATOLOGICAL Hx Musculoskeletal Disorders: Yes Hx Falls: Yes (LAST FALL 03-20-17) Hx Unsteady Gait: Yes - GASTROINTESTINAL Hx Gastrointestinal Disorders: Yes (COLON POLYPS REMOVED) - GENITOURINARY/GYNECOLOGICAL Hx Genitourinary Disorders: Yes Hx Hematuria: Yes (MICROSCOPIC) - PSYCHIATRIC Hx Psychophysiologic Disorder: No Hx Emotional Abuse: No Hx Physical Abuse: No Hx Substance Use: No - SURGICAL HISTORY Hx Surgeries: Yes (REMOVAL OF A LARGE MASS TO L THIGH,BOIL -DID I&D 1976, CARDIAC STENT X 1.) Hx Cardiac Catheterization: Yes Hx Coronary Stent: Yes (X1) Other/Comment: R chest port - ANESTHESIA Hx Anesthesia: Yes Hx Anesthesia Reactions: No Hx Malignant Hyperthermia: No Meds Allergies/Adverse Reactions: Allergies Allergy/AdvReac Type Severity Reaction Status Date / Time No Known Allergies Allergy Verified 03/21/17 11:27 - Medications Medications: Current Medications Heparin Sodium (Porcine) (Heparin) 5,000 units SC Q8H BIANKA PRN Reason: Protocol Last Admin: 03/21/17 12:48 Dose: 5,000 units NOREPINEPHRINE BIT/0.9 % NACL (Levophed 4 Mg/ 250 Ml Ns Premixed) 4 mg in 250 mls @ 15 mls/hr IV .[id number] PRN; Protocol; 4 MCG/MIN PRN Reason: TITRATE PER MD ORDER Last Admin: 03/21/17 11:20 Dose: 15 mcg/min, 56.25 mls/hr Azithromycin (Zithromax 500mg In Ns) 500 mg in 250 mls @ 167 mls/hr IVPB DAILY BIANKA PRN Reason: Protocol Last Admin: 03/21/17 12:49 Dose: 167 mls/hr Sodium Chloride (Sodium Chloride 0.9%) 1,000 mls @ 150 mls/hr IV .Q6H40M BIANKA Last Admin: 03/21/17 11:07 Dose: 150 mls/hr Vasopressin 20 units/ Sodium (Chloride) 101 mls @ 9.09 mls/hr IV .Q11H7M BIANKA; 0.03 U/MIN PRN Reason: Protocol Last Admin: 03/21/17 12:46 Dose: 9.09 mls/hr Pantoprazole Sodium (Protonix Inj) 40 mg IVP DAILY BIANKA Last Admin: 03/21/17 12:47 Dose: 40 mg Physical Exam - Constitutional Appears: Well, Non-toxic, No Acute Distress - Head Exam Head Exam: ATRAUMATIC - Eye Exam Eye Exam: Normal appearance - ENT Exam ENT Exam: Mucous Membranes Moist - Neck Exam Neck exam: Positive for: Normal Inspection - Respiratory Exam Respiratory Exam: NORMAL BREATHING PATTERN Additional comments: decreased breath sounds at right base, no wheezing - Cardiovascular Exam Cardiovascular Exam: Tachycardia, REGULAR RHYTHM, +S1, +S2 - GI/Abdominal Exam GI & Abdominal Exam: Normal Bowel Sounds, Soft - Extremities Exam Extremities exam: Positive for: normal inspection - Neurological Exam Additional comments: intubated, sedated Results - Vital Signs Recent Vital Signs: Last Vital Signs Temp 102.5 F H 03/21/17 12:55 Pulse 126 H 03/21/17 12:55 Resp 15 03/21/17 12:55 BP 101/49 L 03/21/17 12:55 Pulse Ox 99 03/21/17 12:10 - Labs Result Diagrams: 03/21/17 09:36 03/21/17 09:36 Labs: Laboratory Results - last 24 hr 03/21/17 03/21/17 10:30 10:30 Urine Color Yellow Urine Appearance Clear Urine pH 6.0 Ur Specific [place] 1.015 Urine Protein Trace H Urine Glucose (UA) >=1000 Urine Ketones Negative Urine Blood Moderate H Urine Nitrate Negative Urine Bilirubin Negative Urine Urobilinogen 0.2 Ur Leukocyte Esterase Negative Urine RBC 5 - 10 Urine WBC 0 - 2 Ur Epithelial Cells 1 - 3 Urine Bacteria Trace Influenza Typ A,B (EIA) Negative for flu a/b - Imaging and Cardiology Chest x-ray Status: Image reviewed by me, Report reviewed by me Assessment & Plan - Assessment and Plan (Free Text) Assessment: 76yo male a/w Shock. Septic Shock Fever AMS Dehydration ARF - currently febrile, MAP 65-70, on Levophed 15mcg/min, Vasopressin, and stress dose steroids SoluCortef 50mg Q6hr - on exam, intubated, sedated - has chemoport which was used for vasopressor support - attempted L IJ line 2x, guide wire could not thread, placed R femoral TLC for now - Given broad spectrum antibiocs, Vanco, Zosyn - ID Consult - bedside sonogram prior to 3L NS bolus demonstrated IVC 1.26, hyperdynamic LV EF preserved, no pericardial effusion - source not clear at this pooint, UA, neg, blood cultures pending, CXR with possible RML/RLL infiltrate - would obtain CT A/P to rule intrabdominal pathology Recommend: Resp--ventilatory suppport, PRVC, low tidal volume ventilation, goal Plateau<30 , obtain ABG ID--Septic Shock, febrile, Fever control, Broad spectrum Antibiotics, Merrem, Vanco, Azithro, ID following, obtain CT A/P to rule out intrabdominal pathology CV--shock, likely septic shock, EF 60% on cath in September 2016, has CAD, bedside sono with preserved hyperdynaminc LVEF- collapsible IVC 1.26cm, given 4L NS bolus, maintain vasopressor support, Levo, vaso, Stress dose steroids, Obtain ECHO, Cardiology consult, mildly elevated troponin, no acute ischemic changes, repeat lactate Heme: neutropenic, likely 2/2 chemo, maintain neutropenic precautions, monitor platelets, WBC Alimentary/GI: insert NGT, keep NPO for now, CT A/P Renal--acute renal failure, s/p 4L NS Bolus, repeat BMP, check Ulytes Endocrine--FS control, check Free T3, T4 Neuro--CT head negative, daily sedation vacation GI ppx DVT ppx Patient at high risk for morbidity and mortality Critical care time 65 minutes FULL Code
--- NOTE | 2017-03-21 14:12 | PCM.PROC ---
Procedures Attestation:: I certify that I have explained the specified Operation(s) or Procedure(s), risks, benefits and reasonable alternatives to the Patient and/or other person responsible. The opportunity was given to ask questions and all questions answered - Central Line Placement Right Femoral Triple Lumen Catheter Aseptic technique was employed throughout the procedure: Hand Hygiene done prior to procedure, Full sterile barriers (mask, hair cover, sterile gown, sterile gloves), Full body sterile drape, Chloraprep Antiseptic: 2 minute prep for Femoral CVP Time Out Performed: Yes Pt. Placed on Pulse Ox Monitor: Yes Central Line Prep: Chlorhexidine-Alcohol Combination Local Anesthesia Used: Lidocaine 1% Amount of Anesthesia Used (mls): 3 Ultrasound Used for Placement: Yes Central Line Lumen Inserted: triple Central Line Length: 30 cm Post Procedure: Sutured in Place, Good Blood Return, All Ports Aspirated, Flushed, Capped, Sterile Dressing Applied Secured by: Securement device Post procedure dressing: Clear vapor permeable, Chlorhexidine disc (Biopatch) Patient Tolerated Procedure: Well, No Complications Immediate Complications: None
[2017-03-21 16:25] LABS: ABG MECHANICAL RATE 14; ARTERIAL BLOOD GAS PH 7.36 (7.35-7.45); ATERIAL BLOOD GAS PEEP 5
--- NOTE | 2017-03-21 16:26 | RAD ---
PROCEDURE: Portable chest HISTORY: og tube COMPARISON: TECHNIQUE: FINDINGS: The OG tube is seen in suboptimal position. The tip is above the diaphragm in the distal esophagus. The tube should be advanced. The endotracheal and right internal jugular line are in satisfactory position IMPRESSION: As above
[2017-03-21 18:40] LABS: VENOUS BLOOD GAS BASE EXCESS -8.9 mmol/L (0.0-2.0)
--- NOTE | 2017-03-21 18:55 | CARD ---
APPROVED REPORT EKG Measurement Heart [id number] <Conclusion> Sinus tachycardia Otherwise normal ECG
[2017-03-21] MEDS: Meropenem 500 MG in Sodium Chloride 0.9% 100 ML IVPB SCH (21:21)
[2017-03-22] MEDS: Sodium Chloride 0.9% 1,000 ML IV SCH (00:47)
--- NOTE | 2017-03-22 04:29 | CON ---
DATE: 03/21/2017 LOCATION: The patient seen early this morning in ICU 128, bed 3, earlier was seen in the Emergency Room. CHIEF COMPLAINT: Fevers times one day. HISTORY OF PRESENT ILLNESS: This is a 76-year-old male with diabetes mellitus, hypertension, hyperlipidemia, lymphoma and chemotherapy, history of colon polyps, history of Port-A-Cath. The patient has had cardiac catheterization with stent placement. He has no known allergy. He was admitted and found to be hypotensive, respiratory failure, intubated on the ventilator and placed on pressors. Infectious Diseases consultation is requested. The patient is unable to give any information at this time. REVIEW OF SYSTEMS: There has been fevers reported. He was given chemotherapy recently and he has not had any abdominal pain, diarrhea, or constipation. No bright red blood per rectum. No melena. No dysuria or frequency. PAST MEDICAL HISTORY: Significant for diabetes mellitus, hypertension, hyperlipidemia, lymphoma on chemotherapy, and colonic polyps. PAST SURGICAL HISTORY: Significant for Port-A-Cath and cardiac catheterization with stent placement. ALLERGIES: THE PATIENT HAS NO KNOWN ALLERGIES. MEDICATIONS AT HOME: Reveals the patient to be on statin, metoprolol, metformin, Zestril, and glipizide. PHYSICAL EXAMINATION: VITAL SIGNS: The patient is seen in bed with a temperature of 102.5, heart rate of 126, blood pressure is 72/43, and respiratory rate on a vent. HEENT: Examination of HEENT reveals ET tube in place. NECK: Supple. LUNGS: Have decreased breath sounds. HEART: Normal S1 and S2. ABDOMEN: Soft and nontender. No rebound and no guarding. LABORATORY DATA: Laboratory examination reveals a white count of 1, hemoglobin of 9, and platelets of 133. Granulocytosis of 29%, the patient has 35% lymphocytes, 45% polys and atypical lymphocytes. The patient does have absolute poly count of 300. Coagulation is noted. Chemistry reveals a BUN of 28, creatinine of 1.9, and glucose is 327. Troponin is 0.63 and BNP is 3830. Urinalysis is noted. Chest x-ray is positive. Influenza is negative. Review of orders reveals the cultures are ordered and pending. Strep pneumonia workup is in progress. Legionella and procalcitonin is also ordered. ASSESSMENT AND PLAN: This is a 76-year-old male with diabetes, hypertension, hyperlipidemia, lymphoma on chemotherapy, colon polyps and now presenting with hypotension, fevers, requiring pressors, positive infiltrate on the chest.+ Septic shock and neutropenic febrile. The patient with a respiratory failure, intubated on a ventilator with acute kidney injury with a creatinine is changed from last time 0.6 to 1.9 intermittent vancomycin, meropenem, and azithromycin. We will check on the electrocardiogram, which is pending. Blood cultures, urine cultures and workup for pneumonia, we will make further recommendations upon the availability of initial results. We will follow closely with you. Wilmar Gaines MD
[2017-03-22] MEDS: Meropenem 500 MG in Sodium Chloride 0.9% 100 ML IVPB SCH ×3 (05:49→21:00)
[2017-03-22 06:20] LABS: MEAN CELL VOLUME 87.2 fl (80.0-105.0); MEAN CORPUSCULAR HEMOGLOBIN 28.7 pg (25.0-35.0); MEAN CORPUSCULAR HGB CONC 32.9 g/dl (31.0-37.0); RED CELL DISTRIBUTION WIDTH 16.4 % (11.5-14.5)
[2017-03-22 06:23] LABS: HEMATOCRIT 22.5 % (42.0-52.0); WHITE BLOOD COUNT 2.6 10^3/ul (4.5-11.0)
[2017-03-22 06:53] LABS: ALKALINE PHOSPHATASE 90 U/L (38-126); ALT/SGPT 133 U/L (7-56); AST/SGOT 106 U/L (17-59); BILIRUBIN,TOTAL 0.4 mg/dL (0.2-1.3); BLOOD UREA NITROGEN 25 mg/dL (7-21); CALCIUM 7.6 mg/dL (8.4-10.5); CARBON DIOXIDE 22 mmol/L (21-33); CHLORIDE 103 mmol/L (98-107); GFR AFRICAN-AMERICAN > 60; GLUCOSE,RANDOM 327 mg/dL (70-110); POTASSIUM 4.3 mmol/L (3.6-5.0); SODIUM 134 mmol/L (132-148); TOTAL PROTEIN 4.8 g/dL (5.8-8.3)
[2017-03-22] MEDS ORDERED: DOBUTamine 500mg/250ml D5W 500 MG/250 ML BAG IV PRN (07:39)
[2017-03-22] MEDS ORDERED: Vancomycin 1gm in NS 250ml 1 GM/250 ML BAG IVPB STA (07:50)
[2017-03-22 08:09] LABS: ARTERIAL BLOOD GAS HCO3 21.1 mmol/L (21-28); ARTERIAL BLOOD GAS PH 7.44 (7.35-7.45); ATERIAL BLOOD GAS PEEP 5
[2017-03-22] MEDS ORDERED: Vancomycin 2 GM in Sodium Chloride 0.9% 500 ML IVPB ONE (08:43)
[2017-03-22] MEDS: Insulin Reg-MEDIUM-Coverage SC SCH ×4 (09:03→22:00)
[2017-03-22] MEDS: Azithromycin 500MG/NS 250ml 500 MG/250 ML BAG IVPB SCH (09:11)
[2017-03-22] MEDS ORDERED: DiphenhydrAMINE 50 mg/ml Inj IVP STA (09:25)
--- NOTE | 2017-03-22 09:30 | CP.PCM.CON ---
History of Present Illness - History of Present Illness History of Present Illness: Heme/Onc consult note for Dr Huang's service Reason for consult: neutropenia, h/o lymphoma. Known to Dr Huang. Mr. Cruz is a 76 y/o Male, known to Dr Huang with PMHx significant for lymphoma, was on chemo, last cycle of chemo was last week saturday, s/p neulasta last week Saturday, whom was brought in by family due to altered mental status and fever. Dr Huang is being consulted for the management of neutropenia fever. Patient is currently intubated, thus unable to obtain detail history, and ROS. Patient is however alert, able to respond to simple commands. Able to say no to pain. As per MAR, patient's family was having difficulty arousing him in the morning, and noted patient had fever with temp of 102. On arrival to the ED, patient was obtunded, hypotensive with SBP of 70s, and had productive cough. Patient was intubated for airway protection, was giving IVF and subsequently pressors, and was worked up for sepsis. Currently on PRVC, FIO2 50%, RR 14, TV 450 and peep of 5. On Vasopressive at 0.03 units per minute. PMHx: CAD with stent, DM, HTN, hld and Lymphoma PSHx: Cardiac cath with stents, port cath insertion. Allergies: NKDA Meds: as per EMR Review of Systems - Review of Systems Systems not reviewed;Unavailable: Intubated Past Patient History - Infectious Disease Hx of Infectious Diseases: None - Tetanus Immunizations Tetanus Immunization: Unknown - Past Medical History & Family History Past Medical History?: Yes - Past Social History Smoking Status: Never Smoked Alcohol: None Drugs: Denies Home Situation {Lives}: With Family - CARDIAC Hx Cardiac Disorders: Yes Hx Hypertension: Yes Hx Pacemaker: No - PULMONARY Hx Respiratory Disorders: No - NEUROLOGICAL Hx Neurological Disorder: No Hx Paralysis: No - HEENT Hx HEENT Problems: No - RENAL Hx Chronic Kidney Disease: No - ENDOCRINE/METABOLIC Hx Endocrine Disorders: Yes Hx Diabetes Mellitus Type 2: Yes - HEMATOLOGICAL/ONCOLOGICAL Hx Blood Disorders: Yes Hx Blood Transfusions: No Hx Cancer: Yes (Stage 1 lymphoma) Hx Chemotherapy: Yes (03/16/2017) - INTEGUMENTARY Hx Dermatological Problems: Yes Other/Comment: SCAR TO LEFT THIGH-REMOVAL OF A LARGE MASS,SCAR TO BUTTOCK AREA HAD A BOIL DID I/D 1976. PORT TO RIGHT CHEST WALL. 03-21-17 PLACED A CENTRAL LINE. - MUSCULOSKELETAL/RHEUMATOLOGICAL Hx Musculoskeletal Disorders: No - GASTROINTESTINAL Hx Gastrointestinal Disorders: No - GENITOURINARY/GYNECOLOGICAL Hx Genitourinary Disorders: No - PSYCHIATRIC Hx Emotional Abuse: No Hx Physical Abuse: No Hx Substance Use: No - SURGICAL HISTORY Other/Comment: R chest port - ANESTHESIA Hx Anesthesia: Yes Hx Anesthesia Reactions: No Hx Malignant Hyperthermia: No Meds Allergies/Adverse Reactions: Allergies Allergy/AdvReac Type Severity Reaction Status Date / Time No Known Allergies Allergy Verified 03/21/17 11:27 - Medications Medications: Current Medications Diphenhydramine HCl (Benadryl) 25 mg IVP STAT STA Stop: 03/22/17 09:26 Heparin Sodium (Porcine) (Heparin) 5,000 units SC Q8H BIANKA PRN Reason: Protocol Last Admin: 03/22/17 03:28 Dose: 5,000 units Hydrocortisone Sodium Succinate (Solu-Cortef) 50 mg IVP Q12 BIANKA Last Admin: 03/22/17 09:04 Dose: 50 mg NOREPINEPHRINE BIT/0.9 % NACL (Levophed 4 Mg/ 250 Ml Ns Premixed) 4 mg in 250 mls @ 15 mls/hr IV .[id number] PRN; Protocol; 4 MCG/MIN PRN Reason: TITRATE PER MD ORDER Last Titration: 03/22/17 05:49 Dose: 0 mcg/min, 0 mls/hr Azithromycin (Zithromax 500mg In Ns) 500 mg in 250 mls @ 167 mls/hr IVPB DAILY BIANKA PRN Reason: Protocol Last Admin: 03/22/17 09:11 Dose: 167 mls/hr Vasopressin 20 units/ Sodium (Chloride) 101 mls @ 9.09 mls/hr IV .Q11H7M BIANKA; 0.03 U/MIN PRN Reason: Protocol Last Admin: 03/21/17 22:16 Dose: 9.09 mls/hr Meropenem 500 mg/ Sodium (Chloride) 100 mls @ 100 mls/hr IVPB Q8 BIANKA PRN Reason: Protocol Stop: 03/30/17 22:01 Last Admin: 03/22/17 05:49 Dose: 100 mls/hr Dobutamine HCl/Dextrose (Dobutamine/Dextrose 5% 500mg/250ml) 500 mg in 250 mls @ 4.661 mls/hr IV .Q24H PRN; Protocol; 2.5 MCG/KG/MIN PRN Reason: TITRATE PER PROTOCOL Vancomycin HCl 2 gm/ Sodium (Chloride) 500 mls @ 170 mls/hr IVPB ONCE ONE PRN Reason: Protocol Stop: 03/22/17 11:39 Insulin Human Regular (Humulin R Med) 0 units SC ACHS BIANKA PRN Reason: Protocol Last Admin: 03/22/17 09:03 Dose: 5 units Pantoprazole Sodium (Protonix Inj) 40 mg IVP DAILY [facility] Last Admin: 03/22/17 09:06 Dose: 40 mg Physical Exam - Constitutional Appears: No Acute Distress, Other (Intubated ) - Head Exam Head Exam: ATRAUMATIC, NORMAL INSPECTION, NORMOCEPHALIC - Eye Exam Eye Exam: EOMI, Normal appearance, PERRL. absent: Scleral icterus - ENT Exam ENT Exam: Mucous Membranes Moist - Neck Exam Neck exam: Positive for: Normal Inspection - Respiratory Exam Respiratory Exam: Clear to Auscultation Bilateral, NORMAL BREATHING PATTERN. absent: Rales, Rhonchi, Wheezes, Respiratory Distress, Stridor Additional comments: + ETT. - Cardiovascular Exam Cardiovascular Exam: REGULAR RHYTHM, RRR, +S1, +S2. absent: Systolic Murmur - GI/Abdominal Exam GI & Abdominal Exam: Normal Bowel Sounds, Soft. absent: Distended, Firm, Guarding, Mass, Rigid, Tenderness Additional comments: Vega catheter in place. - Extremities Exam Extremities exam: Positive for: normal inspection. Negative for: pedal edema, tenderness - Neurological Exam Neurological exam: Alert Additional comments: awake and follow simple commands. - Psychiatric Exam Psychiatric exam: Normal Affect, Normal Mood - Skin Skin Exam: Dry, Intact, Normal Color, Warm Results - Vital Signs Recent Vital Signs: Last Vital Signs Temp 92.3 F L 03/22/17 00:40 Pulse 89 03/22/17 02:10 Resp 14 03/22/17 07:06 BP 122/77 03/22/17 02:10 Pulse Ox 100 03/22/17 07:06 - Labs Result Diagrams: 03/22/17 05:45 03/22/17 05:45 Labs: Laboratory Results - last 24 hr 03/21/17 03/21/17 03/21/17 10:30 10:30 13:50 WBC RBC Hgb Hct MCV MCH MCHC RDW Plt Count MPV pCO2 pO2 64 H HCO3 ABG pH ABG Total CO2 ABG O2 Saturation ABG Base Excess ABG Potassium VBG pH 7.28 L VBG pCO2 52.0 VBG HCO3 24.4 VBG Total CO2 26.0 VBG O2 Sat (Calc) 92.2 H VBG Base Excess -3.0 L VBG Potassium 4.2 Sodium 133.0 Chloride 101.0 Glucose 271 H Lactate 2.7 H Mechanical Rate FiO2 21.0 Tidal Volume PEEP Pressure Support CPAP Potassium Carbon Dioxide Anion Gap BUN Creatinine Est GFR ( Amer) Est GFR (Non-Af Amer) POC Glucose (mg/dL) Random Glucose Calcium Total Bilirubin AST ALT Alkaline Phosphatase Total Protein Albumin Globulin Albumin/Globulin Ratio Arterial Blood Potassium Venous Blood Potassium 4.2 Urine Color Yellow Urine Appearance Clear Urine pH 6.0 Ur Specific [place] 1.015 Urine Protein Trace H Urine Glucose (UA) >=1000 Urine Ketones Negative Urine Blood Moderate H Urine Nitrate Negative Urine Bilirubin Negative Urine Urobilinogen 0.2 Ur Leukocyte Esterase Negative Urine RBC 5 - 10 Urine WBC 0 - 2 Ur Epithelial Cells 1 - 3 Urine Bacteria Trace Influenza Typ A,B (EIA) Negative for flu a/b 03/21/17 03/21/17 03/21/17 14:15 16:00 16:24 WBC RBC Hgb Hct MCV MCH MCHC RDW Plt Count MPV pCO2 39 pO2 113.0 H HCO3 22.0 ABG pH 7.36 ABG Total CO2 23.2 ABG O2 Saturation 97.9 ABG Base Excess -3.2 L ABG Potassium 4.1 VBG pH VBG pCO2 VBG HCO3 VBG Total CO2 VBG O2 Sat (Calc) VBG Base Excess VBG Potassium Sodium 132.0 Chloride 102.0 Glucose 277 H Lactate 1.8 Mechanical Rate 14 FiO2 60.0 Tidal Volume 450 PEEP 5 Pressure Support CPAP Potassium Carbon Dioxide Anion Gap BUN Creatinine Est GFR ( Amer) Est GFR (Non-Af Amer) POC Glucose (mg/dL) 281 H Random Glucose Calcium Total Bilirubin AST ALT Alkaline Phosphatase Total Protein Albumin Globulin Albumin/Globulin Ratio Arterial Blood Potassium 4.1 Venous Blood Potassium Urine Color Urine Appearance Urine pH Ur Specific [place] Urine Protein Urine Glucose (UA) Urine Ketones Urine Blood Urine Nitrate Urine Bilirubin Urine Urobilinogen Ur Leukocyte Esterase Urine RBC Urine WBC Ur Epithelial Cells Urine Bacteria Influenza Typ A,B (EIA) Negative for flu a/b 03/21/17 03/21/17 03/22/17 18:35 21:53 05:45 WBC 2.6 L* D RBC 2.58 L Hgb 7.4 L D Hct 22.5 L MCV 87.2 MCH 28.7 MCHC 32.9 RDW 16.4 H Plt Count 92 L MPV 10.0 pCO2 pO2 65 H HCO3 ABG pH ABG Total CO2 ABG O2 Saturation ABG Base Excess ABG Potassium VBG pH 7.20 L VBG pCO2 49.0 VBG HCO3 19.2 L VBG Total CO2 20.7 L VBG O2 Sat (Calc) 93.2 H VBG Base Excess -8.9 L VBG Potassium 4.7 Sodium 134.0 Chloride 103.0 Glucose 330 H Lactate 2.6 H Mechanical Rate FiO2 21.0 Tidal Volume PEEP Pressure Support CPAP Potassium Carbon Dioxide Anion Gap BUN Creatinine Est GFR ( Amer) Est GFR (Non-Af Amer) POC Glucose (mg/dL) 290 H Random Glucose Calcium Total Bilirubin AST ALT Alkaline Phosphatase Total Protein Albumin Globulin Albumin/Globulin Ratio Arterial Blood Potassium Venous Blood Potassium 4.7 Urine Color Urine Appearance Urine pH Ur Specific [place] Urine Protein Urine Glucose (UA) Urine Ketones Urine Blood Urine Nitrate Urine Bilirubin Urine Urobilinogen Ur Leukocyte Esterase Urine RBC Urine WBC Ur Epithelial Cells Urine Bacteria Influenza Typ A,B (EIA) 03/22/17 03/22/17 05:45 08:07 WBC RBC Hgb Hct MCV MCH MCHC RDW Plt Count MPV pCO2 31 L pO2 146.0 H HCO3 21.1 ABG pH 7.44 ABG Total CO2 22.1 ABG O2 Saturation 98.5 H ABG Base Excess -2.1 L ABG Potassium 4.1 VBG pH VBG pCO2 VBG HCO3 VBG Total CO2 VBG O2 Sat (Calc) VBG Base Excess VBG Potassium Sodium 134 134.0 Chloride 103 106.0 Glucose 336 H Lactate 1.5 Mechanical Rate FiO2 40.0 Tidal Volume PEEP 5 Pressure Support 5 CPAP 5 Potassium 4.3 Carbon Dioxide 22 Anion Gap 14 BUN 25 H Creatinine 1.0 Est GFR ( Amer) > 60 Est GFR (Non-Af Amer) > 60 POC Glucose (mg/dL) Random Glucose 327 H* Calcium 7.6 L Total Bilirubin 0.4 AST 106 H ALT 133 H Alkaline Phosphatase 90 Total Protein 4.8 L Albumin 2.4 L Globulin 2.4 Albumin/Globulin Ratio 1.0 L Arterial Blood Potassium 4.1 Venous Blood Potassium Urine Color Urine Appearance Urine pH Ur Specific [place] Urine Protein Urine Glucose (UA) Urine Ketones Urine Blood Urine Nitrate Urine Bilirubin Urine Urobilinogen Ur Leukocyte Esterase Urine RBC Urine WBC Ur Epithelial Cells Urine Bacteria Influenza Typ A,B (EIA) Assessment & Plan - Assessment and Plan (Free Text) Assessment: Patient is a 76 y/o Male, known to Dr Huang with PMHx significant for lymphoma , was on chemo, last cycle of chemo was last saturday, s/p neulasta last week Saturday, brought in by family due to AMS and fever, was found to be in septic shock. Patient was intubated for airway protection, and is currently admitted in ICU. 1) Neutropenic fever, currently hypothermic 2) Septic shock with multiorgan dysfunction, likely due to pneumonia. R/o chemo port infection. On tapering pressors. 3) Respiratory distress s/p intubation 4) Lymphoma s/p last cycle of chemo 5) Pancytopenia 6) Drop in platelet ~1/3. concerning for HIT. 7) CAD with stent Plan: Discussed with Dr Huang, patient was giving neulasta a week ago, granulocytes should be trending up soon, thus will not be giving another dose of neulasta. Will add differentials to the lab for ANC. Continue neutropenic precaution for now. Patient with pancytopenia with a drop in hemoglobin and platelet. Will transfuse 2 units of irradiated prbc. Will send LDH, pt/ptt, fibrin split products and fibrinogen. Patient is being followed by multiple services, currently on broadspectrum antibiotic (merrem, vanco, Zithromax for septic shock. Pending fall cultures. Will discontinue heparin and obtain HIT antibodies to rule out HIT. Will order compressive devices for DVT prophylaxis. Continue protonix for Gi prophylaxis. Patient with improved mental status, and improved hypoxemia on ABG, patient should be getting extubated today as per ICU. Patient seen, examined and case discussed with Dr Huang. - Date & Time Date: 03/22/17 Time: 07:45
[2017-03-22 09:36] LABS: BASO # 0.01 K/mm3 (0.0-2.0); BASO % 0.4 % (0.0-3.0); EOS % 0.4 % (1.5-5.0); GRAN # 2.14 (1.4-6.5); GRAN % 80.4 % (50.0-68.0); LYMPH # 0.2 (1.2-3.4); LYMPH % 7.5 % (22.0-35.0); MONO # 0.3 (0.1-0.6); MONO % 11.3 % (1.0-6.0)
--- NOTE | 2017-03-22 10:31 | PN ---
DATE: 03/22/2017 SUBJECTIVE: The patient seen and examined at bedside. He is comfortable. He is following commands. He is easily lifting his head off of pillow. The patient is on PSV 5/5 with FiO2 40%. He is on vasopressin 0.03 units per minute. His rapid shallow breathing index is between 60 and 70. PHYSICAL EXAMINATION: VITAL SIGNS: His blood pressure 105/60, heart rate 83, oxygen saturation 100%, respiratory rate varies between 18 and 20, end-tidal CO2 on the monitor 33. ENT: Head and neck atraumatic. LUNGS: Clear to auscultation bilaterally. HEART: Regular rate and rhythm. S1, S2 normal. ABDOMEN: Soft, nontender and nondistended. MUSCULOSKELETAL: No C/C/E. NEUROLOGIC: The patient moves all extremities spontaneously. He is following commands. SKIN: Color is moist. PSYCHIATRIC: The patient is alert, awake, fully oriented and able to nonverbally communicate as he is intubated. DIAGNOSTIC DATA: Bedside echocardiogram revealed moderately/severely depressed left ventricular systolic function. IVC diameter 2 cm without respiratory variations. Dobutamine 2.5 mcg/kg per minute started and formal echocardiogram is pending. LABORATORY DATA: WBC 2.6, hemoglobin 7.4, platelet count 92. Sodium 134, potassium 4.3, chloride 103, carbon dioxide 22, BUN 25, creatinine 1, glucose 327, AST 106, ALT 133, total bilirubin 0.4 and alkaline phosphatase 19. ProBNP 3815. Procalcitonin is 55.1. Troponin slightly elevated 0.63. MEDICATIONS: Dobutamine, heparin subcu, hydrocortisone 50 mg IV q. 12 h., meropenem, Protonix, vancomycin, vasopressin, azithromycin, propofol. ASSESSMENT AND PLAN: This is 76-year-old gentleman who presented with septic shock with multiorgan system failure including acute kidney injury, transaminitis, respiratory failure and septic cardiomyopathy. He was fluid resuscitated with resolution of lactic acidosis. Substantial improvement in his mental status and respiratory status observed. His acute kidney injury resolved. The patient received broad spectrum antibiotic, septic workup was initiated. As patient rapidly and substantially improved, it was decided (discussed with Dr. Salas and Dr. Mitchell Wilkerson) to leave port a cath in place and continue abx , pending results of initial blood cultures. The patient tolerates PST well and after procedure will be extubated. We will continue with conservative fluid and oxygen management. We will continue with head of bed elevated >35 degrees. This patient was found to have moderately to severely depressed left ventricular systolic function. He will be started on dobutamine to optimize his chances for successful extubation by optimizing his inotropic function. Once his hemodynamic stability established, he will be started on SADI inhibitors for afterload reduction. Will maintain Hb above 9 as his troponin is leaking. His white cell count is getting higher. I will touch base with his oncologist whether the patient received granulocyte colony stimulating factor prior to admission to ICU. The patient is normothermic and he is on broad-spectrum antibiotics. Blood cultures, sputum culture, urine culture as well as urine for streptococcal antigen were sent. Chest x-ray, however, is not that impressive in terms of infiltrate in the right lower lobe. The patient had good urine output overnight with 1100 ml over 12 hours. We will continue to maintain mean arterial pressure above 65, avoiding nephrotoxic medication but not at expense of treatment of underlying disease. We will maintain blood glucose within 140-180 range according to night sugar trial. We will continue tapering stress dose steroids. Once the patient is extubated, speech and swallow evaluation will be ordered and if passed, he will be started on enteral nutrition. The patient will be continued on deep venous thrombosis, gastrointestinal prophylaxis. Addendum: patient was successully extubated, however when PRBC started to be transfused, developed crackles and rhonchi and mild respiratory distress--> Lasix 40 mg IV x 1 given with more then 1L urine output afterward, dobutamine continued, BPAP applied-->substantial improvement in respiratory status observed. Once second unit of PRBC transfused, will wean down/off NIPPV. ccm time 40 min Rashel Quigley MD [facility]
[2017-03-22 10:39] LABS: INR 1.83 (0.93-1.08); PARTIAL THROMBOPLASTIN TIME 45.5 Seconds (25.1-36.5)
--- NOTE | 2017-03-22 11:03 | HP ---
CHIEF COMPLAINT: Change of mental status, severe generalized weakness, and fever since yesterday. HISTORY OF PRESENT ILLNESS: A 76-year-old male with history of B-cell lymphoma, undergoing active chemotherapy, last treatment 7 days ago, with type 2 diabetes mellitus, who was brought to emergency room by family, who complained of severe generalized weakness and lethargy. The patient had difficulty waking up this morning. Last night he complained of chest weakness and he had some productive cough. The patient had fever became very hypotensive and hypoxic and was intubated in the emergency room. PAST MEDICAL HISTORY: History of B-cell lymphoma diagnosed in 07/2016, undergoing chemotherapy by Dr. Huang, status post left tigh mass excision, positive for lymphoma; type 2 diabetes mellitus, recently not well controlled due to chemotherapy with prednisone; coronary artery disease; cardiac catheterization in 07/2016 with left circumflex artery occlusion; hyperlipidemia; history of gastrointestinal bleeding due to gastric ulcer and AV malformation. ALLERGIES: THE PATIENT HAS NO KNOWN ALLERGIES. MEDICATIONS: At home include simvastatin, metoprolol, metformin, lisinopril, glipizide, aspirin, and allopurinol. FAMILY HISTORY: Noncontributory. SOCIAL HISTORY: The patient has no history of smoking, alcohol, or drug use. The patient is retired. He lives with . Until now, he was independent of activities of daily living. REVIEW OF SYSTEMS: Not obtained due to the patient's condition. PHYSICAL EXAMINATION: VITAL SIGNS: During evaluation, the patient had a fever of 102 in the emergency room and during evaluation this evening, the patient's temperature was 99.9. His pulse was 100 and regular, blood pressure 97/63, and respiratory rate 20. The patient is intubated with oxygen saturation of 99% on 60% of FiO2. The patient is sedated. HEENT: Head is normocephalic, atraumatic. NECK: Supple. LUNGS: With decreased breath sounds bilaterally. No rhonchi or rales. HEART: Tachycardic. ABDOMEN: Soft, nontender, nondistended. EXTREMITIES: With no edema or cyanosis. DIAGNOSTIC TESTS: Pertinent findings ,CBC with leukopenia, WBC 1 with neutropenia, hemoglobin 9.6, hematocrit 30, and platelet count 133. Chemistry: Low sodium 129. His BUN is 28 and creatinine 1.9. His random glucose was high at 327, and he had elevated liver enzymes. His troponin was elevated at 0.63 and BNP was 3800. IMAGING: Chest x-ray showed possible infiltrations in the right mid and lower lobes. EKG showed sinus tachycardia with nonspecific ST-T changes. CT scan of the head showed no acute intracranial bleeding. ASSESSMENT/PLAN OF TREATMENT: 1. Septic shock, source uncertain at the present time, rule out right middle lobe pneumonia, possibility of an urinary source due to history of benign prostatic hypertrophy and some urinary retention. The patient had fall cultures done and he was treated with vancomycin, Zithromax, Zosyn, and then Merrem in the intensive care unit. 2. Elevated troponin, rule out ischemia, history of coronary artery disease. We will monitor the patient's cardiac condition and follow up troponin. 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 3. Acute renal failure, possibly prerenal due to hypertension and dehydration. 4. Type 2 diabetes mellitus, we will monitor glucose and treat with insulin coverage. 5. Severe leukopenia due to chemotherapy with B-cell lymphoma. Oncology consult with Dr. Huang. Will start deep venous thrombosis prophylaxis with heparin and gastrointestinal protection with Protonix. Kristy Davies MD [facility]
--- NOTE | 2017-03-22 12:37 | CARD ---
APPROVED REPORT EXAM: Two-dimensional and M-mode echocardiogram with Doppler and color Doppler. INDICATION Infection:Rule out subacute bacterial endocarditis 2D DIMENSIONS Left Atrium (2D)3.7 (1.6-4.0cm)IVSd1.0 (0.7-1.1cm) LVDd4.9 (3.9-5.9cm)PWd0.9 (0.7-1.1cm) LVDs4.6 (2.5-4.0cm)FS (%) 6.3 % LVEF (%)14.2 (>50%) M-Mode DIMENSIONS Aortic Root3.10 (2.2-3.7cm)Aortic Cusp Exc.1.40 (1.5-2.0cm) Aortic Valve AoV Peak Xteyccmz207.0cm/Ijeoma Peak GR.4mmHg Mitral Valve E/A ratio0.0 TDI E/Lateral E'0.0E/Medial E'0.0 Tricuspid Valve TR Peak [id number]/sRAP [id number] Peak Gr.13mmHg [id number] LEFT VENTRICLE The left ventricle is normal size. There is normal left ventricular wall thickness. The ejection fraction is moderately to severely impaired. There is global hypokinesis of the left ventricle. RIGHT VENTRICLE The right ventricle is normal size. The right ventricular systolic function is normal. ATRIA The left atrium size is normal. The right atrium size is normal. The interatrial septum is intact with no evidence for an atrial septal defect. AORTIC VALVE The aortic valve is moderately thickened. No aortic regurgitation is present. There is no aortic valvular stenosis. MITRAL VALVE The mitral valve is mildly thickened. Mitral regurgitation is moderate. TRICUSPID VALVE The tricuspid valve is normal in structure. There is mild tricuspid regurgitation. PULMONIC VALVE The pulmonary valve is normal in structure. GREAT VESSELS The aortic root is normal in size. The IVC is dilated. PERICARDIAL EFFUSION There is no pleural effusion. There is no pericardial effusion. <Conclusion> Normal chamber size. Global LV hypokinesis with moderate to severely reduced systolic function. Moderate MR. Mild TR.
--- NOTE | 2017-03-22 14:52 | PN ---
SUBJECTIVE: The patient is seen in the ICU, room #128, bed #3. The patient had an uneventful night, remains intubated on a ventilator. OBJECTIVE: GENERAL: On exam, temperature is 92, blood pressure is 110/70, respiratory rate on a vent, the heart rate of 90. HEENT: Reveals ET tube to be in place. NECK: Supple. LUNGS: Have decreased breath sounds. HEART: Normal S1, S2. ABDOMEN: Soft, nontender. LABORATORY DATA: Examination reveals a white count is up to 2.6 with 92 platelets, hemoglobin of 7. The differential today is not available. Chemistries reveal BUN of 25, creatinine of 1.0, AST is 106, ALT of 133. Microbiology is noted and CAT scan of the head is noted. No acute findings. The patient had a chest x-ray from yesterday. EKG is also reviewed with a QTc of 480. ASSESSMENT AND PLAN: A 76-year-old male who was seen early this morning in room #128, bed #3, with a past medical history of diabetes, hypertension, hyperlipidemia, lymphoma, status post chemotherapy, history of colon polyps with a Port-A-Cath, and he had a history of cardiac catheterization, admitted now with septic shock, is a neutropenic febrile patient, and healthcare-associated pneumonia with respiratory failure, intubated on a ventilator with acute kidney injury, currently on intermittent vancomycin, meropenem, and azithromycin. We will follow closely with you, pending fall culture results, concerned about prolonged QT of 480. We will check on the urine for Legionella antigen which has not been collected, but we will order it again stat. Currently, the patient is on pressors, meropenem, vancomycin intermittently, and azithromycin. We will give another dose of vancomycin pending culture results. The patient's condition is critical. The patient's procalcitonin is reported to be 54.1 with a normal creatinine. Awaiting for blood cultures. Wilmar Gaines MD
--- NOTE | 2017-03-22 15:42 | CON ---
DATE: 03/22/2017 CONSULTATION INDICATIONS: Sepsis, positive troponin, and acute kidney injury. HISTORY OF PRESENT ILLNESS: This is a 76-year-old man known to us who was admitted yesterday through the emergency room when he presented with lethargy, fever, cough and unresponsiveness. He was brought to the emergency room and subsequently admitted to the Intensive Care Unit with septic shock. He was initially hypotensive, require large volume of saline and pressors. He was intubated. This is in the setting of lymphoma recently diagnosed and chemotherapy. Prior to excision of a thigh mass, he underwent a cardiac evaluation by Dr. Louis, a cardiac catheterization in July. It disclosed an occluded circumflex artery, which was collateralized and a moderate mild LAD lesion with normal left ventricular function. Medical therapy was advised and he subsequently underwent the excision of a left thigh mass and was found to be lymphoma. He has been on chemotherapy. Additional diagnoses include diabetes, hypertension, hyperlipidemia, colonic polyps. There is no history of congestive heart failure, arrhythmia, stroke, TIA, or gout. MEDICATIONS: At the time of admission include glipizide, metformin, simvastatin, aspirin, lisinopril, metoprolol, multivitamin, and Zyloprim. ALLERGIES: THERE ARE NO KNOWN MEDICATION ALLERGIES. SOCIAL HISTORY: He lives at home. He is a nonsmoker. He does not drink alcohol significantly. FAMILY HISTORY: Noncontributory. REVIEW OF SYSTEMS: A 10-point review of systems are limited to a chart review. He is intubated in the Intensive Care Unit. I have discussed the case with Dr. Broussard in the emergency room yesterday. PHYSICAL EXAMINATION: GENERAL: He is a well-developed male, intubated in the Intensive Care Unit, on pressors including dobutamine and vasopressin. VITAL SIGNS: He is in sinus rhythm at 90 beats per minute. Currently afebrile. Last blood pressure 122/77, O2 sat 100% on 50% FiO2. NECK: No neck vein distention, thyromegaly, or carotid bruits. LUNGS: Scattered rhonchi. HEART: Reveals normal first and second heart sounds, somewhat obscured. ABDOMEN: Soft. EXTREMITIES: Reveals no cyanosis, clubbing, or edema. NEUROLOGIC: Sedated. LABORATORY AND IMAGING: A chest x-ray yesterday revealed pulmonary venous congestion. A CT scan of the head revealed no acute findings. EKG reveals sinus tachycardia. White count initially 1000, repeat 2600, hemoglobin 9.6 repeat 7.4, hematocrit 30, repeat 22.5, platelet count 133,000, repeat 92,000. PT, INR mildly elevated and PTT normal. Blood gas is noted. Initial electrolytes reveal sodium of 129, potassium 4.3, BUN was 28, creatinine is 1.9, blood sugar was 322, magnesium was 1.5. LFTs were elevated. Troponin is 0.63. BNP 3850. Procalcitonin 54.1. TSH 0.37. Blood sugar is generally in the 200 to 300 range. Today sodium 134, potassium 4.3, BUN 25, creatinine 1.0. Urinalysis is abnormal. Influenza is negative. IMPRESSION: Clinton Cruz is a 76-year-old male admitted in the setting of chemotherapy for lymphoma recently diagnosed with known coronary artery disease as described in 07/23/2016 cardiac catheterization report, admitted with a septic picture, hypotensive, responding to volume resuscitation and pressors, intubated and now on dobutamine and vasopressin getting antibiotics having been cultured with multiple metabolic abnormalities including severe neutropenia and anemia. PLAN: At this time, I will repeat his troponin and EKG this morning. I will order a bedside echocardiogram. Magnesium should be replaced. He is on antibiotics. He has been cultured. His urine output was 1550 mL. I will follow along with you. I will make additional recommendations based on his clinical course. At this point, his initial elevated troponin appears to be due to sepsis with acute kidney injury, but he has known underlying coronary artery disease and myocardial infarction is a remote possibility. He was given aspirin in the emergency room. He is on subcutaneously heparin, insulin coverage, meropenem, Protonix, hydrocortisone, vancomycin, azithromycin, and Zosyn. ID is following, Heme/Oncology is following. Interventional Radiology will arrange for removal of a port. Gavin Alvarez MD [facility]
--- NOTE | 2017-03-22 18:17 | CARD ---
APPROVED REPORT EKG Measurement Heart [id number] <Conclusion> Normal sinus rhythm Normal ECG
[2017-03-22 22:18] LABS: HEMATOCRIT 29.3 % (42.0-52.0); MEAN CELL VOLUME 84.7 fl (80.0-105.0); MEAN CORPUSCULAR HEMOGLOBIN 28.6 pg (25.0-35.0); MEAN CORPUSCULAR HGB CONC 33.8 g/dl (31.0-37.0); MEAN PLATELET VOLUME 9.5 fl (7.0-11.0); RED CELL DISTRIBUTION WIDTH 16.1 % (11.5-14.5); WHITE BLOOD COUNT 5.5 10^3/ul (4.5-11.0)
--- NOTE | 2017-03-22 23:42 | PN ---
DATE: SUBJECTIVE: The patient remains in intensive care unit. The patient was seen this morning. He was still intubated, but awake. Follow the orders, in no acute distress. PHYSICAL EXAMINATION: This morning, showed: GENERAL: He was awake, in no acute distress. He followup commands. VITAL SIGNS: Stable with temperature 94.1, his blood pressure was 115/71, pulse 100, respiratory rate 14 and his oxygen saturation was 100% on 50% of oxygen. HEENT: Head was normocephalic and atraumatic. NECK: Supple. LUNGS: With decreased breath sounds. No rales or wheezing. HEART: With regular rhythm, rate of 90 per minute. ABDOMEN: Soft, nontender and nondistended. EXTREMITIES: With no edema. GENITOURINARY: His Vega catheter was intact and draining clear urine. His urine output from yesterday was around 1100 mL. DIAGNOSTIC TEST: His CBC showed WBC 2.6, hemoglobin dropped to 7.4 with hematocrit 22.5 and there was also drop of platelet count 92 this morning. Chemistry showed improved electrolytes and normalization of renal function with BUN 25 and creatinine 1. His random glucose was 327. The patient had repeated troponin, which showed decreased, but still slightly above the normal range at 0.37. His procalcitonin was high at 54. His blood cultures and urine cultures were still pending. ASSESSMENT: 1. A 76-year-old male in acute septic shock probably with right middle lobe pneumonia with negative cultures, presently on Zithromax, Merrem and vancomycin. 2. Two sets of elevated troponins. The patient is hemodynamically stable. No signs of acute coronary syndrome. At present time, we will monitor closely and the patient is off vasopressors and maintain his blood pressure on his own. 3. History of acute renal failure improved with hydration and vasopressors. 4. Severe neutropenia and anemia. We will await Hematology consult. The patient may need the blood transfusion. Apparently, he had shot of Neupogen two days ago. 5. Type 2 diabetes mellitus with elevated glucose. We will monitor closely. Continue insulin coverage. Kristy Davies MD [facility] # [id number] MTDD
[2017-03-23] MEDS: Meropenem 500 MG in Sodium Chloride 0.9% 100 ML IVPB SCH ×3 (05:36→21:58)
[2017-03-23 06:25] LABS: BASO # 0.01 K/mm3 (0.0-2.0); BASO % 0.2 % (0.0-3.0); GRAN % 91.4 % (50.0-68.0); LYMPH # 0.2 (1.2-3.4); LYMPH % 3.4 % (22.0-35.0); MEAN CORPUSCULAR HEMOGLOBIN 28.4 pg (25.0-35.0); MEAN CORPUSCULAR HGB CONC 33.4 g/dl (31.0-37.0); MEAN PLATELET VOLUME 9.6 fl (7.0-11.0); MONO # 0.3 (0.1-0.6); RED CELL DISTRIBUTION WIDTH 16.5 % (11.5-14.5); WHITE BLOOD COUNT 6.6 10^3/ul (4.5-11.0)
[2017-03-23 06:58] LABS: ALKALINE PHOSPHATASE 92 U/L (38-126); ALT/SGPT 143 U/L (7-56); AST/SGOT 67 U/L (17-59); BILIRUBIN,TOTAL 0.5 mg/dL (0.2-1.3); BLOOD UREA NITROGEN 18 mg/dL (7-21); CALCIUM 8.1 mg/dL (8.4-10.5); CARBON DIOXIDE 30 mmol/L (21-33); CHLORIDE 97 mmol/L (98-107); GFR AFRICAN-AMERICAN > 60; GLUCOSE,RANDOM 171 mg/dL (70-110); SODIUM 137 mmol/L (132-148); TOTAL PROTEIN 5.3 g/dL (5.8-8.3)
[2017-03-23 07:03] LABS: POTASSIUM 2.8 mmol/L (3.6-5.0)
[2017-03-23] MEDS: Insulin Reg-MEDIUM-Coverage SC SCH ×4 (08:23→21:58)
--- NOTE | 2017-03-23 09:32 | PN ---
DATE: 03/23/2017 SUBJECTIVE: The patient is in bed in the ICU, bed #3. The patient is now extubated. He is comfortable. He is awake. PHYSICAL EXAMINATION: VITAL SIGNS: Temperature is 97, blood pressure is 130/60, respiratory rate of 24, and heart rate of 102. HEENT: Unremarkable. NECK: Supple. LUNGS: Have decreased breath sounds. HEART: Normal S1 and S2. ABDOMEN: Soft and nontender. LABORATORY DATA: Reveals the patient's white count is 6.6, hemoglobin of 9, and platelets of 73. BUN of 18 and creatinine of 0.7. Urinalysis is noted. Urine for Legionella antigen is negative. Influenza is negative. Microbiology reveals blood cultures are no growth. Urine cultures no growth. Dr. Darling's note is reviewed. The patient's procalcitonin is 54. The patient had an echo yesterday. Normal chamber size, hypokinesis, severely reduced systolic function with left ventricular ejection fraction of 14%. He had an EKG with QTc of 474. ASSESSMENT AND PLAN: A 76-year-old male with past medical history of diabetes mellitus, hypertension, hyperlipidemia, lymphoma status post chemotherapy, and history of colon polyps. The patient does have a Port-A-Cath, history of cardiac catheterization, admitted with septic shock with neutropenic febrile patient and healthcare-associated pneumonia, respiratory failure, intubated on a ventilator, acute kidney injury, currently now the patient is extubated. He is comfortable, awake and alert and he is no longer neutropenic and thus far, all the cultures are negative. We will discontinue the vancomycin and his Zithromax due to prolonged QT interval. Today is day #3 of antibiotics, we will use meropenem and doxycycline. Discontinue vancomycin. Discontinue the Zithromax and today is day #3 of 47 days. Wilmar Gaiens MD
--- NOTE | 2017-03-23 09:43 | PN ---
FUR EXAMINER NOTE DATE: 03/23/2017 SUBJECTIVE: The patient is resting in bed, O2 via nasal cannula, at this time off of BiPAP. The patient continues to require dobutamine. Vital signs are stable. No respiratory distress. The patient does respond appropriately and he is awake and alert. No complaints of pain. No nausea or vomiting. No significant cough or congestion. PHYSICAL EXAMINATION: VITAL SIGNS: Temperature is 97.8, pulse is 95, respirations are 24 and blood pressure is 140/72. HEENT: Head is atraumatic and normocephalic. Eyes reactive to light. Ear, nose and throat seemed to be within normal limits. NECK: Supple. No JVD. No thyroid enlargement. No lymph nodes. HEART: Has regular rate and rhythm. Normal S1 and S2. LUNGS: Revealed decreased breath sounds at the bases. No significant rhonchi. ABDOMEN: Soft. Decreased bowel sounds. GENITALIA AND RECTAL: Deferred. MUSCULOSKELETAL: No joint deformities. EXTREMITIES: Reveal slight lower extremity edema. NEUROLOGIC: The patient seems to be grossly intact. SKIN: Warm and dry. LABORATORY DATA: As far as his laboratories, his white count is 6.6, hemoglobin is 9.7 and his hematocrit is 29.0 with platelets of 73,000. The patient's sodium is 137, potassium is 2.8, chloride is 97, CO2 of 30 with a BUN of 18, creatinine of 0.7 and glucose of 141. IMPRESSION: As far as my impression, this patient initially presented with septic shock and multiorgan failure and respiratory insufficiency. The patient has heart failure with a poor ejection fraction and was noted to have anemia, he is post transfusion with a hemoglobin above 9 at this time. The patient has a history of lymphoma and was noted to have renal insufficiency. PLAN: We will continue with O2 via nasal cannula and continue with aggressive pulmonary toilet. The patient is on dobutamine drip. He is on antibiotics of meropenem and we will continue with Solu-Cortef as well as the Protonix and azithromycin. The patient is being monitored closely and we will continue to treat aggressively along with the other consultants and the primary care doctor. Tonio Garcia MD [facility] # [id number]
--- NOTE | 2017-03-23 10:09 | PN ---
DATE: 03/23/2017 SUBJECTIVE: The patient is seen lying in bed in the ICU. He is currently extubated on nasal cannula. He is awake, alert and answers questions intermittently. He denies any discomfort. CURRENT MEDICATIONS: Include IV dobutamine, doxycycline, insulin, meropenem, potassium replacement therapy, midodrine 10 mg t.i.d., Protonix and Solu-Cortef 50 mg q. 12 hours. OBJECTIVE: GENERAL: He is an elderly man who appears comfortable at rest. VITAL SIGNS: His blood pressure is 134/70 with pulse of 112 and sinus, respirations are 20. He is currently afebrile. HEENT: No JVD. CHEST: Bilateral rhonchi heard. HEART: PMI displaced laterally with soft tones noted. ABDOMEN: Soft, nontender with bowel sounds. EXTREMITIES: No edema. DIAGNOSTIC DATA: Potassium is 2.8 which has been replaced. BUN and creatinine 18 and 0.1, glucose is 171. White count 6.6, hemoglobin and hematocrit 9.7 and 29.0 with platelet count of 73,000. His echocardiogram was reviewed and revealed normal chamber size with global left ventricular hypokinesis and moderate to severely reduced LV systolic function, moderate mitral regurgitation, mild tricuspid regurgitation were noted. IMPRESSION: 1. Septic shock clinically improved. 2. Right middle lobe pneumonia in immunocompromised host. 3. Elevated troponins with no clear evidence of acute cardiac ischemia. He does have known coronary artery disease from catheterization performed earlier this year at which time he was found to have moderate RCA and LAD disease with an occluded left circumflex artery. Medical therapy appears most appropriate at the present time. 4. Lymphoma recently completed final course of chemotherapy. RECOMMENDATIONS: His current regimen should continue. Once blood pressure allows, the resumption of beta-susanne therapy would be advisable. Given his thrombocytopenia, aspirin can be withheld at the present time. Continued antibiotic therapy is advised. Cardiac management will remain conservative at this time. We will continue to follow and make further recommendations as appropriate. Deyvi Louis MD
--- NOTE | 2017-03-23 11:22 | RAD ---
HISTORY: follow up CXR, increase chest congestion COMPARISON: 03/21/2017 FINDINGS: LUNGS: There is an increasing right lower lobe perihilar infiltrate PLEURA: No significant pleural effusion identified, no pneumothorax apparent. CARDIOVASCULAR: Normal. OSSEOUS STRUCTURES: No significant abnormalities. VISUALIZED UPPER ABDOMEN: Normal. OTHER FINDINGS: None. IMPRESSION: There is an increasing right lower lobe perihilar infiltrate
[2017-03-23] MEDS: Levalbuterol 0.63 MG/3 ML Inhal Soln UD IH SCH ×2 (13:44→20:17)
--- NOTE | 2017-03-23 13:49 | PN ---
DATE: SUBJECTIVE: The patient remains in Intensive Care Unit. The patient was extubated yesterday. His respiratory status improved. He is on 2 liters of nasal cannula with oxygen saturations around 95% to 97%. The patient remains very congested. He is also coughing with p.o. medications. There is a risk of aspiration. PHYSICAL EXAMINATION: VITAL SIGNS: Temperature is 97.8, his pulse rate is 108 and regular, his blood pressure is 134/68, respiratory rate is 24, and oxygen saturation last time was 100%. GENERAL: He is comfortable, in no acute form of distress. Alert, awake, and oriented to place, answers simple questions. HEENT: Head is normocephalic and atraumatic. Oral mucosa is dry. NECK: Supple. No neck JVD. LUNGS: With some wheezing and scattered rhonchi. Decreased breath sounds in the base. HEART: With regular rate and tachycardia of 108 per minute. ABDOMEN: Soft, nontender, and nondistended. EXTREMITIES: With no edema or calf tenderness. DIAGNOSTIC TEST: CBC with WBC back to normal at 6.6, the patient is off contact isolation, hemoglobin 9.7 increased after 2 units of blood yesterday, and platelet count is low at 73. Chemistry significant for severe hypokalemia with potassium 2.8. His renal function returned to normal, with BUN 18 and creatinine 0.7. Glucose improved. Blood cultures are negative but still preliminary. Urinary culture was negative. His echocardiogram showed significant decrease of left ventricular ejection fraction with severely reduced systolic function. ASSESSMENT AND PLAN: 1. Sepsis with pneumonia and respiratory failure, improved, extubated. We will continue oxygen. I will repeat the chest x-ray. I will order test for swallow studies to evaluate his swallowing ability to present any aspiration before starting p.o. intake. 2. Coronary artery disease with history of positive troponin. No signs of acute coronary artery syndrome, but severely diminished left ventricular function on echo and significant changes since the last time. 3. Pancytopenia with history of neutropenia, improved. Anemia also improved after the blood transfusion. We will monitor closely. Thrombocytopenia due to sepsis , rule out heparin induced. 4. History of acute renal failure, function returned to normal. 5. Type 2 diabetes mellitus: We will monitor and treat with insulin coverage. Kristy Davies MD [facility]
[2017-03-23 16:46] LABS: ALKALINE PHOSPHATASE 94 U/L (38-126); ALT/SGPT 132 U/L (7-56); AST/SGOT 54 U/L (17-59); BILIRUBIN,TOTAL 0.5 mg/dL (0.2-1.3); BLOOD UREA NITROGEN 15 mg/dL (7-21); CALCIUM 8.3 mg/dL (8.4-10.5); CARBON DIOXIDE 30 mmol/L (21-33); CHLORIDE 96 mmol/L (98-107); GFR AFRICAN-AMERICAN > 60; GLUCOSE,RANDOM 194 mg/dL (70-110); POTASSIUM 3.1 mmol/L (3.6-5.0); SODIUM 135 mmol/L (132-148); TOTAL PROTEIN 5.4 g/dL (5.8-8.3)
[2017-03-23 17:28] LABS: ALB/GLOB RATIO 1.1 (1.1-1.8)
[2017-03-24] MEDS: Meropenem 500 MG in Sodium Chloride 0.9% 100 ML IVPB SCH ×3 (05:13→21:16)
[2017-03-24 06:33] LABS: BASO # 0.01 K/mm3 (0.0-2.0); BASO % 0.1 % (0.0-3.0); GRAN # 10.43 (1.4-6.5); GRAN % 95.2 % (50.0-68.0); HEMATOCRIT 31.3 % (42.0-52.0); LYMPH # 0.3 (1.2-3.4); LYMPH % 3.1 % (22.0-35.0); MEAN CELL VOLUME 86.2 fl (80.0-105.0); MEAN CORPUSCULAR HEMOGLOBIN 28.1 pg (25.0-35.0); MEAN CORPUSCULAR HGB CONC 32.6 g/dl (31.0-37.0); MEAN PLATELET VOLUME 9.9 fl (7.0-11.0); MONO # 0.2 (0.1-0.6); MONO % 1.6 % (1.0-6.0); PLATELET COUNT 70 10^3/uL (120.0-450.0); RED CELL DISTRIBUTION WIDTH 16.5 % (11.5-14.5)
[2017-03-24 06:38] LABS: ALKALINE PHOSPHATASE 91 U/L (38-126); ALT/SGPT 106 U/L (7-56); AST/SGOT 34 U/L (17-59); BILIRUBIN,TOTAL 0.4 mg/dL (0.2-1.3); BLOOD UREA NITROGEN 17 mg/dL (7-21); CALCIUM 8.2 mg/dL (8.4-10.5); CARBON DIOXIDE 31 mmol/L (21-33); CHLORIDE 97 mmol/L (98-107); GFR AFRICAN-AMERICAN > 60; GLUCOSE,RANDOM 223 mg/dL (70-110); POTASSIUM 3.3 mmol/L (3.6-5.0); SODIUM 136 mmol/L (132-148); TOTAL PROTEIN 5.2 g/dL (5.8-8.3)
--- NOTE | 2017-03-24 07:40 | PN ---
DATE: LOCATION: The patient is currently in the intensive care unit, bed #3. SUBJECTIVE: The patient continues to stay in the unit. He has been extubated. Thus patient's status has improved on 2 L of oxygen. Chest x-ray done today did show the right perihilar lobe infiltrates, is on 2 L of nasal cannula with oxygen saturations of 95% to 97%, still remains congested. PHYSICAL EXAMINATION: VITAL SIGNS: The patient is examined in the bed. T-max is 98.4, pulse rate is 108, regular, blood pressure is 134/68, respiratory rate is 24, O2 sat was 100%. GENERAL: The patient is comfortable, in no acute distress. Awake, alert and oriented. Able to answer all questions. HEENT: Head is normocephalic and atraumatic. Conjunctivae pale. Oral mucosa is dry. No oropharyngeal lesions are noted. NECK: Supple. There is no adenopathy. No jugular venous distention noted. LUNGS: Reveal scattered wheezing and bilateral rhonchi. Decreased breath sounds in the bases noted. HEART: S1, S2 is normal. There is tachycardia at 108 per minute. ABDOMEN: Soft, nontender, nondistended. No rebound, rigidity or guarding is noted. EXTREMITIES: There is no cyanosis, clubbing or edema. LABORATORY DATA: Reviewed. The white count has returned to normal. The patient is post chemotherapy consisting of R-CHOP, and he has received Neulasta last week. White count is back to 6.6, he is off neutropenic. Hemoglobin is up to 9.7 after transfusion. Platelet count is holding steady at 73. The patient has hypokalemia which is being replaced. Kidney functions have reversed to normal. Checked on the echocardiogram and read Dr. Louis's note, the patient has severe global hypokinesis of the left ventricle. I am wondering whether this all the sequelae of the , which could be tampering and should improve. It is important to note that his ejection fraction was 50% or more before initiation of therapy. His red blood cells are negative. Urine cultures are negative to date. ASSESSMENT AND PLAN: The patient has pancytopenia resulting in sepsis, pneumonia and respiratory failure, improved, extubated, on oxygen therapy. Chest x-ray shows right lower lobe infiltrate. The patient will need to have swallowing studies done before testing the ability for him to eat, so aspiration may be not an issue. Coronary artery disease with positive history of troponin; currently on dobutamine for diminished left ventricular ejection fraction. Pancytopenia which has improved and anemia which has improved after the blood transfusion. Acute kidney failure which has improved and back to normal. Type 2 diabetes mellitus. We will continue to monitor the patient with you and make appropriate recommendations at this point in time. We will continue to monitor the labs and make sure the patient is not having worsening of his respiratory status or worsening of his hematologic condition at this point. 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 If we continue to monitor him and treat him aggressively, the patient should come out of this and do well. We will discuss with the disciplinary hearing officer as well regarding further ongoing aggressive management. I reviewed all his medications. He continues to be on dobutamine, , insulin coverage, meropenem, midodrine, pantoprazole, and hydrocortisone succinate. Labs for a.m. has been requested. Time spent with the patient is at least 45 minutes. Michela Huang MD
[2017-03-24] MEDS: Levalbuterol 0.63 MG/3 ML Inhal Soln UD IH SCH ×3 (07:57→19:25)
--- NOTE | 2017-03-24 09:20 | PN ---
DATE: 03/24/2017 DEGREASING SOLUTION RECLAIMER NOTE SUBJECTIVE: The patient is resting in bed, very comfortable. O2 via nasal cannula. The patient continues with dobutamine drip. Vital signs are stable. He responds appropriately. No significant cough or congestion. No complaints of chest pain, abdominal pain or diarrhea. PHYSICAL EXAMINATION: VITAL SIGNS: Temperature is 97.8, pulse is 107, respirations are 24, blood pressure is 132/85. SKIN: Warm and dry. HEENT: Head is atraumatic and normocephalic. Eyes are reactive to light. Ears, nose, and throat seem to be within normal limits. NECK: Supple. No JVD. No thyroid enlargement. No lymph nodes. HEART: Has a regular rate and rhythm. Normal S1 and S2. LUNGS: Reveal some decreased breath sounds at the bases. ABDOMEN: Soft and nontender, decreased bowel sounds. GENITALIA AND RECTAL: Deferred. MUSCULOSKELETAL: No joint deformities. EXTREMITIES: Reveal trace lower extremity edema. NEUROLOGIC: He seemed to be grossly intact. IMPRESSION: This patient initially presented with septic shock and with multiorgan failure associated with respiratory insufficiency. The patient has poor ejection fracture as well as anemia and has history of lymphoma and renal insufficiency. PLAN: We will continue with O2 via nasal cannula. Continue with aggressive pulmonary toilet. The patient is on dobutamine drip and antibiotics along with Solu-Cortef, Protonix. We will continue to treat aggressively along with the other consultants and primary care doctor. Tonio Garcia MD
[2017-03-24 09:24] LABS: ANISOCYTOSIS SLIGHT; BAND 9 % (0-2); NEUTROPHIL 85 % (50.0-70.0); POIKILOCYTOSIS SLIGHT
[2017-03-24 09:26] LABS: PLATELET ESTIMATE LOW (NORMAL)
[2017-03-24] MEDS: Insulin Reg-MEDIUM-Coverage SC SCH ×4 (10:27→22:00)
--- NOTE | 2017-03-24 10:40 | PN ---
DATE: 03/24/2017 SUBJECTIVE: The patient is seen in 128, bed 3. He remains extubated. He is comfortable. No fevers, no chills and no nausea and vomiting. PHYSICAL EXAMINATION: VITAL SIGNS: Temperature is 97, blood pressure is 140/50, respiratory rate of 24, heart rate of 95. HEENT: Unremarkable. NECK: Supple. LUNGS: Decreased breath sounds. HEART: Normal S1, S2. ABDOMEN: Soft, nontender. LABORATORY EXAMINATION: Reveals the white count is 11,000 with 95% granulocytosis and chemistries are noted with a creatinine of 0.5. Urinalysis is noted and influenza is negative. Urine for Legionella antigen is negative. Strep pneumonia is negative. Microbiology reveals the blood cultures no growth. Urine cultures no growth and the patient's chest x-ray from yesterday is noted. Dr. Huang's note from yesterday is reviewed. Dr. Darling's note is reviewed. Dr. Louis's note is reviewed. ASSESSMENT AND PLAN: A 76-year-old male seen earlier today in 128, bed 3 with past medical history of diabetes, hypertension, hyperlipidemia, lymphoma, status post chemotherapy, history of colonic polyps, Port-A-Cath, and cardiac catheterization and on this admission, the patient is admitted with septic shock with neutropenic febrile, healthcare-associated pneumonia, respiratory failure, intubated on a ventilator, acute kidney injury. Currently, the patient is comfortable, doing well, day #4 of meropenem and doxycycline and would complete 4 to 7 days. Follow closely with you. Wilmar Gaines MD
--- NOTE | 2017-03-24 13:32 | PN ---
DATE: 03/24/2017 SUBJECTIVE: The patient is seen lying in bed in the ICU. He feels somewhat better. He denies any dyspnea or chest pain. MEDICATIONS: His current medications include dobutamine 2.5 mcg/kg/minute, doxycycline, insulin coverage, meropenem, midodrine 10 mg t.i.d., Protonix 40 mg daily, Solu-Cortef 50 mg q.12 hours, Xopenex, and Zestril 10 mg daily. OBJECTIVE: GENERAL: He is an elderly male who is comfortable at rest. VITAL SIGNS: His blood pressure is 132/86 with pulse of 105, respirations of 14, and he is afebrile. HEENT: No JVD. CHEST: Bilateral scattered rhonchi. HEART: PMI displaced laterally with soft tones noted. Systolic murmur is present at low left sternal border. ABDOMEN: Soft and nontender with bowel sounds. EXTREMITIES: No edema. DIAGNOSTIC DATA: Potassium is 3.3. BUN and creatinine 17 and 0.5. White count 11.0, hemoglobin and hematocrit 10.2 and 31.3 with platelet count of 70,000. IMPRESSION: 1. Recent septic shock clinically improved. 2. Right middle lobe pneumonia. 3. Immunocompromised host given recent chemotherapy. 4. Mildly elevated troponin with no evidence of symptoms or EKG changes. 5. Lymphoma. RECOMMENDATIONS: His current regimen should continue. Dobutamine can likely be discontinued at this time. Antiplatelet therapy is on hold given thrombocytopenia. From cardiac standpoint beta susanne therapy can be resumed. Continued conservative management is most appropriate. We will continue to follow and make further recommendations as appropriate. Deyvi Louis MD MTDD
--- NOTE | 2017-03-24 14:09 | PN ---
DATE: SUBJECTIVE: The patient remains in Intensive Care Unit. He is extubated. He is on 2 L of nasal cannula with no respiratory distress. His cough improved since yesterday. He denies any pain or shortness of breath. PHYSICAL EXAMINATION: VITAL SIGNS: His vitals are stable, but temperature is 97.8 this morning, pulse is 94 and regular, blood pressure 132/85, respiratory rate 24, and oxygen saturation is 99% on 3 L of oxygen nasal cannula. GENERAL: He is comfortable in bed. Alert, awake and oriented. HEENT: Head is normocephalic and atraumatic. Oral mucosa is moist. NECK: Supple. LUNGS: With scattered rhonchi in the right mid lung and lower lung. HEART: With regular rhythm and rate. ABDOMEN: Soft, nontender and nondistended. EXTREMITIES: With no edema. LABORATORY DATA: His urine and blood cultures are negative after 3 days. Laboratory tests, CBC improved with WBC 11, hemoglobin 10.2, hematocrit 31.3, and platelet count 121. Chemistry also improved. Electrolytes, potassium is still low with 3.3 this morning. His renal function is normal. Sugars fluctuating between 220-133. His repeat chest x-ray yesterday showed increase of right lower lobe infiltration. ASSESSMENT AND PLAN: 1. Sepsis with right lower lobe pneumonia and with history of respiratory failure. The patient significantly improved. The patient will monitor and continue with present IV antibiotics as per Infectious Disease recommendation. 2. Dysphagia with swallowing dysfunction study done yesterday. We will start p.o. with pureed diet. We will monitor closely for any signs of aspiration. 3. Coronary artery disease with ischemia on admission. He is hemodynamically stable. He is still on dobutamine. I will start the patient on lisinopril. We will discuss with the [employer] for recommendation regarding dobutamine therapy. 4. Pancytopenia with improved white blood cell count and hemoglobin. The patient continues with thrombocytopenia. We will monitor closely. 5. Type 2 diabetes mellitus. We will continue current coverage with insulin. Kristy Davies MD [facility]
--- NOTE | 2017-03-24 17:33 | CP.PCM.PN ---
Subjective - Date & Time of Evaluation Date of Evaluation: 03/24/17 Time of Evaluation: 17:00 - Subjective Subjective: No acute events; working with speach OT; ROS: 12 ROs negative Pain denies Objective - Vital Signs/Intake and Output Vital Signs (last 24 hours): Temp Pulse Resp BP Pulse Ox 97.8 F 108 H 15 117/69 95 03/23/17 20:00 03/24/17 15:00 03/24/17 15:00 03/24/17 15:00 03/24/17 15:00 Intake and Output: 03/24/17 03/24/17 06:59 18:59 Intake Total 60 Output Total 750 Balance -690 - Medications Medications: Current Medications Doxycycline Hyclate (Doryx) 100 mg PO Q12 BIANK[facility] PRN Reason: Protocol Stop: 03/28/17 10:01 Last Admin: 03/24/17 10:26 Dose: 100 mg Hydrocortisone Sodium Succinate (Solu-Cortef) 50 mg IVP Q12 [facility] Last Admin: 03/24/17 10:26 Dose: 50 mg Meropenem 500 mg/ Sodium (Chloride) 100 mls @ 100 mls/hr IVPB Q8 BIANKA PRN Reason: Protocol Stop: 03/30/17 22:01 Last Admin: 03/24/17 14:27 Dose: 100 mls/hr Dobutamine HCl/Dextrose (Dobutamine/Dextrose 5% 500mg/250ml) 500 mg in 250 mls @ 4.661 mls/hr IV .Q24H PRN; Protocol; 2.5 MCG/KG/MIN PRN Reason: TITRATE PER PROTOCOL Last Admin: 03/22/17 14:22 Dose: 2.5 mcg/kg/min, 4.661 mls/hr Insulin Human Regular (Humulin R Med) 0 units SC ACHS BIANKA PRN Reason: Protocol Last Admin: 03/24/17 11:30 Dose: Not Given Levalbuterol HCl (Xopenex) 0.63 mg IH TIDRESP [facility] Last Admin: 03/24/17 13:47 Dose: 0.63 mg Lisinopril (Zestril) 10 mg PO DAILY [facility] Last Admin: 03/24/17 14:41 Dose: 10 mg Midodrine (Proamatine) 10 mg PO TID [facility] Last Admin: 03/24/17 14:41 Dose: 10 mg Pantoprazole Sodium (Protonix Inj) 40 mg IVP DAILY [facility] Last Admin: 03/24/17 10:25 Dose: 40 mg - Labs Labs: 03/24/17 06:00 03/24/17 06:00 PT 20.4 SECONDS (9.4-12.5) H 03/22/17 10:00 INR 1.83 (0.93-1.08) H 03/22/17 10:00 APTT 45.5 Seconds (25.1-36.5) H 03/22/17 10:00 - Constitutional Appears: Well - Respiratory Exam Respiratory Exam: Clear to Ausculation Bilateral, NORMAL BREATHING PATTERN - Cardiovascular Exam Cardiovascular Exam: REGULAR RHYTHM, +S1, +S2. absent: Murmur - GI/Abdominal Exam GI & Abdominal Exam: Soft, Normal Bowel Sounds. absent: Tenderness - Skin Skin Exam: Dry, Intact, Normal Color, Warm Assessment and Plan - Assessment and Plan (Free Text) Plan: Mr. Cruz samina 76 y/o man with pmhx signficant for NHL s/p R-CHOP admitted with neutropenic sepsis and hypoxemia respiratory failure in setting of pna s/p intubation and extubation now with slow recovery of counts and IV abx. -consider removal of femoral line and zendejas catheter -discuss with cardiology utility of on going dobutamine -pancytopenia now resolved -continue abx management per LIZZ Huang MD ONcology
[2017-03-25] MEDS: Meropenem 500 MG in Sodium Chloride 0.9% 100 ML IVPB SCH ×3 (05:01→21:46)
[2017-03-25 05:35] LABS: BASO # 0.02 K/mm3 (0.0-2.0); BASO % 0.2 % (0.0-3.0); EOS % 0.1 % (1.5-5.0); HEMATOCRIT 33.9 % (42.0-52.0); MEAN CELL VOLUME 87.4 fl (80.0-105.0); MEAN CORPUSCULAR HEMOGLOBIN 27.8 pg (25.0-35.0); MEAN CORPUSCULAR HGB CONC 31.9 g/dl (31.0-37.0); MEAN PLATELET VOLUME 10.2 fl (7.0-11.0); PLATELET COUNT 85 10^3/uL (120.0-450.0); RED CELL DISTRIBUTION WIDTH 16.2 % (11.5-14.5); WHITE BLOOD COUNT 11.9 10^3/ul (4.5-11.0)
[2017-03-25 06:06] LABS: ALKALINE PHOSPHATASE 100 U/L (38-126); ALT/SGPT 84 U/L (7-56); AST/SGOT 23 U/L (17-59); BILIRUBIN,TOTAL 0.4 mg/dL (0.2-1.3); BLOOD UREA NITROGEN 18 mg/dL (7-21); CALCIUM 8.3 mg/dL (8.4-10.5); CARBON DIOXIDE 32 mmol/L (21-33); CHLORIDE 98 mmol/L (98-107); GFR AFRICAN-AMERICAN > 60; GLUCOSE,RANDOM 232 mg/dL (70-110); POTASSIUM 3.5 mmol/L (3.6-5.0); SODIUM 138 mmol/L (132-148)
[2017-03-25 06:44] LABS: GRAN % 93.7 % (50.0-68.0); LYMPH # 0.5 (1.2-3.4); LYMPH % 3.8 % (22.0-35.0); MONO # 0.3 (0.1-0.6); MONO % 2.4 % (1.0-6.0)
[2017-03-25 06:50] LABS: NEUTROPHIL 75 % (50.0-70.0)
[2017-03-25 06:51] LABS: BAND 16 % (0-2); PLATELET ESTIMATE LOW (NORMAL)
[2017-03-25] MEDS: Insulin Reg-MEDIUM-Coverage SC SCH ×4 (08:21→21:54)
[2017-03-25] MEDS: Levalbuterol 0.63 MG/3 ML Inhal Soln UD IH SCH ×2 (09:26→19:31)
--- NOTE | 2017-03-25 10:02 | PN ---
DATE: 03/25/2017 SUBJECTIVE: The patient is in bed, in no acute distress. The patient was seen earlier in 128, bed 3. PHYSICAL EXAMINATION: GENERAL: He is afebrile. No fevers and no chills. VITAL SIGNS: Temperature is 97, blood pressure is 117/70, respiratory rate of 20, heart rate of 110. HEENT: Unremarkable. NECK: Supple. LUNGS: Decreased breath sounds. HEART: Normal S1, S2. ABDOMEN: Soft and nontender. LABORATORY EXAMINATION: Reveals a white count of 11,900, hemoglobin of 10, platelets of 85,000. Coagulation is noted and blood gases are noted. The patient has BUN of 18, creatinine of 0.5. Urinalysis is reviewed. Serology is noted. Microbiology reveals blood cultures are negative. Urine cultures are negative. Review of orders reveals the patient to be on p.o. doxycycline and meropenem IV. ASSESSMENT AND PLAN: A 76-year-old male, seen earlier today in 128, bed 3 with past medical history of diabetes, hypertension, hyperlipidemia, lymphoma, status post chemotherapy, history of chronic polyps, Port-A-Cath and cardiac catheterization, admitted on this admission with septic shock, neutropenic febrile with healthcare-associated pneumonia, respiratory failure, intubated on a ventilator, acute injury. Currently, the patient is extubated, he is comfortable, doing well, today is day #5 with meropenem and doxycycline. We will complete 4 to 7 days of antibiotics. Most likely, we will discontinue the antibiotics within the next [address] Hardy Huang's note is reviewed. Dr. Darling's note is also reviewed. Wilmar Gaines MD cc:
[2017-03-25] MEDS ORDERED: Potassium Chloride 20 mEq ER Tab PO STA (10:24)
--- NOTE | 2017-03-25 10:48 | CP.PCM.PN ---
Subjective - Date & Time of Evaluation Date of Evaluation: 03/25/17 Time of Evaluation: 08:10 - Subjective Subjective: Pt seen and examined, doing well, reports no major complaints, off Dobutamine Objective - Vital Signs/Intake and Output Vital Signs (last 24 hours): Temp Pulse Resp BP Pulse Ox 98.2 F 96 H 14 108/60 99 03/25/17 08:00 03/25/17 09:03 03/25/17 08:00 03/25/17 10:17 03/25/17 08:00 Intake and Output: 03/25/17 03/25/17 06:59 18:59 Intake Total 385 Output Total 450 Balance -65 - Medications Medications: Current Medications Doxycycline Hyclate (Doryx) 100 mg PO Q12 [facility]ANK[facility] PRN Reason: Protocol Stop: 03/28/17 10:01 Last Admin: 03/25/17 09:03 Dose: 100 mg Furosemide (Lasix) 40 mg PO DAILY [facility] Last Admin: 03/25/17 10:17 Dose: 40 mg Heparin Sodium (Porcine) (Heparin) 5,000 units SC Q12 [facility] PRN Reason: Protocol Last Admin: 03/25/17 10:17 Dose: 5,000 units Hydrocortisone Sodium Succinate (Solu-Cortef) 50 mg IVP DAILY [facility] Last Admin: 03/25/17 10:14 Dose: Not Given Meropenem 500 mg/ Sodium (Chloride) 100 mls @ 100 mls/hr IVPB Q8 [facility] PRN Reason: Protocol Stop: 03/30/17 22:01 Last Admin: 03/25/17 05:01 Dose: 100 mls/hr Insulin Human Regular (Humulin R Med) 0 units SC ACHS BIANK[facility] PRN Reason: Protocol Last Admin: 03/25/17 08:21 Dose: 1 units Levalbuterol HCl (Xopenex) 0.63 mg IH TIDRESP [facility] Last Admin: 03/25/17 09:26 Dose: 0.63 mg Lisinopril (Zestril) 10 mg PO DAILY [facility] Last Admin: 03/25/17 09:03 Dose: 10 mg Midodrine (Proamatine) 10 mg PO TID [facility] Last Admin: 03/25/17 09:03 Dose: 10 mg Pantoprazole Sodium (Protonix Inj) 40 mg IVP DAILY [facility] Last Admin: 03/25/17 09:02 Dose: 40 mg - Labs Labs: 03/25/17 05:18 03/25/17 05:18 PT 20.4 SECONDS (9.4-12.5) H 03/22/17 10:00 INR 1.83 (0.93-1.08) H 03/22/17 10:00 APTT 45.5 Seconds (25.1-36.5) H 03/22/17 10:00 - Constitutional Appears: Well, Non-toxic, No Acute Distress - Head Exam Head Exam: NORMAL INSPECTION - Eye Exam Eye Exam: Normal appearance - ENT Exam ENT Exam: Mucous Membranes Moist - Respiratory Exam Respiratory Exam: Clear to Ausculation Bilateral, NORMAL BREATHING PATTERN - Cardiovascular Exam Cardiovascular Exam: REGULAR RHYTHM, +S1, +S2 - GI/Abdominal Exam GI & Abdominal Exam: Soft, Normal Bowel Sounds - Extremities Exam Extremities Exam: Normal Inspection - Neurological Exam Neurological Exam: Alert, Awake Assessment and Plan - Assessment and Plan (Free Text) Assessment: 76yo male a/w CHF and Septic Shock Septic Shock, resolved, off vasopressors CHF, systolic Hx of Lymphoma Severe Sepsis Volume Overload SOB - currently afebrile, HD stable, comfortable on 2LNC, off dobutamine - labs noted - TLC R femoral discontinued - cultures thus far neg Recommend: - supp o2 as needed - Antibiotics as per ID - follow up cultures, Procal - follow up ID - BP control - Lasix PO - CHF optimization, SADI-I, Coreg, Lasix, consider Spironolactone - Monitor I/Os - low salt diet - OOB to chair - FS control - GI ppx - DVT ppx - Stable, transfer to telemetry
[2017-03-26 00:23] LABS: HEPARIN-IND PLATELET AB Weak Positive (Negative)
--- NOTE | 2017-03-26 01:53 | PN ---
DATE: SUBJECTIVE: The patient was seen in intensive care unit this morning, he is feeling much better. The patient denies any cough. He denies any chest pain or shortness of breath. He started soft diet, pureed with honey. Denies any difficulty of swallowing or choking. PHYSICAL EXAMINATION: GENERAL: The patient is comfortable in no acute form of distress. VITAL SIGNS: Temperature 98.2; pulse 97, regular; blood pressure 108/60; respiratory rate 25; oxygen saturation 95% on 3 L nasal cannula. HEENT: Head is normocephalic, atraumatic. Eyes: Pupils are reactive to light. No jaundice. Oral mucosa is moist. NECK: Supple. No neck masses. LUNGS: With decreased breath sounds. No rales or rhonchi. HEART: Regular rhythm, tachycardic. ABDOMEN: Soft, nontender and nondistended. EXTREMITIES: With no edema. NEUROLOGIC: Normal. DIAGNOSTIC TESTS: This morning significant for CBC with WBC 11.9, hemoglobin stable at 10.8, hematocrit 33.9 and increased platelet count 85 this morning. Chemistry showed improved electrolytes; sodium 138, potassium 3.5. His renal function is normal with BUN 18 and creatinine 0.5. His glucose is fluctuating between 150-250. Urine culture and blood cultures are negative. ASSESSMENT AND PLAN: 1. A 76-year-old male with history of sepsis and right lower lobe pneumonia, hemodynamically and clinically improved, The patient will be maintained on doxycycline p.o. and Merrem, IV antibiotics. Follow up cultures. 2. Coronary artery disease with ischemia and positive troponin, congestive heart failure with ejection fraction of 15-20%. The patient was started on lisinopril. He is off dobutamine and vasopressors. I added beta susanne, twice a day to his regimen. 3. Type 2 diabetes mellitus, poorly controlled. We will continue insulin and also glipizide was added to his regimen. 4. Pancytopenia, significantly improved. The patient is slightly thrombocytopenic, but stabilized and increasing. Kristy Davies MD [facility]
[2017-03-26] MEDS: Meropenem 500 MG in Sodium Chloride 0.9% 100 ML IVPB SCH (05:23)
[2017-03-26 06:22] LABS: HEMATOCRIT 36.7 % (42.0-52.0); MEAN CELL VOLUME 88.4 fl (80.0-105.0); MEAN CORPUSCULAR HEMOGLOBIN 28.2 pg (25.0-35.0); MEAN CORPUSCULAR HGB CONC 31.9 g/dl (31.0-37.0); MEAN PLATELET VOLUME 10.1 fl (7.0-11.0); RED CELL DISTRIBUTION WIDTH 16.1 % (11.5-14.5); WHITE BLOOD COUNT 12.5 10^3/ul (4.5-11.0)
[2017-03-26 07:01] LABS: ALKALINE PHOSPHATASE 112 U/L (38-126); ALT/SGPT 59 U/L (7-56); AST/SGOT 23 U/L (17-59); BILIRUBIN,TOTAL 0.4 mg/dL (0.2-1.3); BLOOD UREA NITROGEN 21 mg/dL (7-21); CALCIUM 8.3 mg/dL (8.4-10.5); CARBON DIOXIDE 35 mmol/L (21-33); CHLORIDE 96 mmol/L (98-107); GFR AFRICAN-AMERICAN > 60; GLUCOSE,RANDOM 193 mg/dL (70-110); POTASSIUM 3.3 mmol/L (3.6-5.0); SODIUM 138 mmol/L (132-148); TOTAL PROTEIN 5.1 g/dL (5.8-8.3)
[2017-03-26] MEDS: Levalbuterol 0.63 MG/3 ML Inhal Soln UD IH SCH ×2 (07:51→13:45)
[2017-03-26] MEDS: Insulin Reg-MEDIUM-Coverage SC SCH ×4 (09:07→22:00)
--- NOTE | 2017-03-26 17:56 | PN ---
DATE: 03/26/2017 SUBJECTIVE: The patient is in bed, in no acute distress, nontoxic. OBJECTIVE: VITAL SIGNS: on exam, temperature is 98, blood pressure is 120/80, respiratory rate of 18, heart rate of 92. HEENT: Unremarkable. NECK: Supple. LUNGS: Have decreased breath sounds. HEART: Normal S1, S2. ABDOMEN: Soft, nontender. LABORATORY EXAMINATION: Reveals white count is 12,500, hemoglobin of 11, platelets of 128. Chemistries are noted, and BUN of 21, creatinine of 0.6. The blood cultures are negative. Urine cultures are negative. MEDICATIONS: Review of medications reveals the patient to be on meropenem and vancomycin, was given one dose. ASSESSMENT AND PLAN: A 76-year-old male with diabetes, hypertension, hyperlipidemia, lymphoma, status post chemotherapy, history of colonic polyps, and Port-A-Cath and cardiac catheterization, admitted on this admission with sepsis. The patient was in septic shock with neutropenic febrile, health care-associated pneumonia, respiratory failure, intubated on a ventilator with acute kidney injury, and now the patient is comfortable, doing well, day #6 of meropenem. We will discontinue the antibiotics. Case discussed with Dr. Darling at length and complete a short course of the doxycycline. Wilmar Gaines MD
--- NOTE | 2017-03-26 23:16 | PN ---
DATE: 03/26/2017 This is [facility] visit on the medical floor. For Dr. Huang. SUBJECTIVE: The patient is a 76-year-old male seen sitting up in bed with family at the bedside, now being transferred from the intensive care unit where he was admitted for evaluation and treatment for septic shock with neutropenia and respiratory failure with intubation. Also , he had acute kidney injury, which is slowly improving. The patient is now resting comfortably, denying any pain. is at the bedside. The patient is reporting that his posterior pharynx is irritated possibly secondary to intubation; however, upon inspection, he does have what appears to be oropharyngeal candidiasis for which Mycelex Troches will be given. PHYSICAL EXAMINATION: VITAL SIGNS: Temperature 97.6, pulse 85, respirations 20, blood pressure 90/55, pulse ox 97%. HEENT: Tongue is coated with whitish exudate. NECK: Supple. HEART: Tachy rate, regular rhythm. LUNGS: Scattered rhonchi with decreased breath sounds at the bases. ABDOMEN: Soft, nontender. EXTREMITIES: No edema. SKIN: Warm and dry. NEUROLOGIC: Awake, alert, and oriented. LABORATORY DATA: The patient's labs were done, white blood cell count of 12.5, hemoglobin 11.7, hematocrit 36.7, platelet count of 128,000 improved from 85,000 yesterday with his white blood cell count improved from 1.0 on 03/21/2017. His hemoglobin dropped to 7.4 on 03/22/2017 status post transfusion with good effect with his platelets dropping to 70,000 on 03/24/2017, now again slowly improving. The patient's chem metabolic panel, potassium 3.3 today to be corrected, nonfasting glucose 194, ALT of 59 otherwise normal chem metabolic panel today. It should be noted that the patient's procalcitonin level was 54.1 on 03/21/2017. The patient's serology was negative for influenza negative for legionella pneumophila, negative for mycoplasma, negative for pneumocystis and negative for Streptococcus pneumoniae antigen. His Clostridium difficile stool was done and reported today as negative for toxin and antigen. Blood cultures are also negative. The patient had a chest x-ray done 3 days earlier, it was read as increasing right lower lobe perihilar infiltrate. ASSESSMENT: Neutropenic sepsis; respiratory failure status post intubation then extubation; acute kidney injury, resolved; diabetes; hypertension; hyperlipidemia; pancytopenia; pneumonia with underlying lymphoma; non-Hodgkin's lymphoma status post R-CHOP. PLAN: Plan for this patient after conversation with Dr. Huang is to continue present medical regimen, also oropharyngeal candidiasis. Plan for this patient after conversation with doctor is to give Mycelex Troches. We will humidify his oxygen, offer commode at the bedside with assist with correction of his electrolyte imbalance, monitor clinically. Prognosis is guarded. Francisco Farley MD
--- NOTE | 2017-03-27 00:33 | PN ---
DATE: 03/25/2017 LOCATION: The patient is in ICU, bed 3. SUBJECTIVE: The patient is examined by the bed. He is doing well. He reports no major complaints. He is extubated. He is off dobutamine. White count is elevated. He has had no fevers or chills. His is by the bedside. PHYSICAL EXAMINATION VITAL SIGNS: Stable. T-max is 98.4, pulse is 96, respirations 14, blood pressure is 108/60, pulse ox is 99% on room air. GENERAL: The patient is awake, alert, and oriented. He is in no acute distress. Nontoxic looking. HEENT: Head is normocephalic and atraumatic. Alopecia is noted. Conjunctivae pale. Sclerae are anicteric. Pupils are equally reactive to light and accommodation. No oropharyngeal lesions are noted. NECK: Supple. There is no adenopathy. No jugular venous distention noted. LUNGS: Clear to percussion and auscultation. CARDIOVASCULAR SYSTEM: Reveals S1 and S2 to be normal. No significant murmurs. ABDOMEN: Soft and nontender. Bowel sounds are present. No rebound, rigidity, or guarding is noted. EXTREMITIES: Reveal no cyanosis, clubbing, or edema. NEUROLOGIC: Higher functions are normal. No focal deficits are noted. MEDICATIONS: The patient's medications were reviewed. He is on the following medicines. He is on doxycycline 100 mg p.o. q. 12 hours. He is on Lasix 40 mg daily. He is on heparin 5000 units subcu q. 12 hours. He is on Solu-Cortef 50 mg IV daily, meropenem 500 mg IV q. 8 hours. He is on insulin coverage. He is on levalbuterol (Xopenex) 0.63 mg inhaled t.i.d. He is on Zestril 10 mg p.o. daily. He is on midodrine 10 mg p.o. t.i.d. He is on pantoprazole 40 mg IV daily. LABORATORY DATA: White count is 11.9, hemoglobin 10.8, hematocrit 33.9, platelet count is stable at 85,000. Sodium is 136, potassium 3.5, chloride is 98, CO2 is 32, BUN is 18, creatinine 0.5, and blood sugar is 232. PT/INR reveals an INR of 1.83. 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 PLAN: I have had a detailed discussion with the patient and the . I also spoke to the furnace utility operator. My feeling is that the echocardiogram done which could be reflection of the recent anthracycline chemotherapy that he had. This could be a temporary phenomena and things should improve. The patient is currently afebrile. Continue the current medication. The patient's right femoral catheter was removed and cultures so far have been negative. The patient will be transferred to the floor. We will continue to monitor the patient and then start the patient on physical therapy for deconditioning before planning on discharge. Overall prognosis is good as he had a curative treatment for his large cell lymphoma. Hopefully, the cardiac congestion will continue to improve as predicted so far. We will discuss with the PMD regarding further followup and treatment recommendations. Time spent with the patient is 45 minutes. Michela Huang MD
[2017-03-27 07:33] LABS: HEMATOCRIT 35.5 % (42.0-52.0); MEAN CELL VOLUME 89.4 fl (80.0-105.0); MEAN CORPUSCULAR HGB CONC 31.3 g/dl (31.0-37.0); MEAN PLATELET VOLUME 10.1 fl (7.0-11.0); RED CELL DISTRIBUTION WIDTH 16.2 % (11.5-14.5); WHITE BLOOD COUNT 12.9 10^3/ul (4.5-11.0)
[2017-03-27 07:41] LABS: ALKALINE PHOSPHATASE 112 U/L (38-126); ALT/SGPT 50 U/L (7-56); AST/SGOT 20 U/L (17-59); BILIRUBIN,TOTAL 0.3 mg/dL (0.2-1.3); BLOOD UREA NITROGEN 25 mg/dL (7-21); CALCIUM 8.3 mg/dL (8.4-10.5); CARBON DIOXIDE 39 mmol/L (21-33); CHLORIDE 97 mmol/L (98-107); GFR AFRICAN-AMERICAN > 60; GLUCOSE,RANDOM 174 mg/dL (70-110); POTASSIUM 3.1 mmol/L (3.6-5.0); SODIUM 140 mmol/L (132-148); TOTAL PROTEIN 4.9 g/dL (5.8-8.3)
[2017-03-27] MEDS: Levalbuterol 0.63 MG/3 ML Inhal Soln UD IH SCH ×3 (08:23→14:57)
[2017-03-27] MEDS: Insulin Reg-MEDIUM-Coverage SC SCH ×2 (08:51→12:47)
[2017-03-27 09:42] VITALS: BP 119/68; RESP 17; TEMP 98.1; O2SAT 96
--- NOTE | 2017-03-27 09:55 | PN ---
DATE:03/26/2017 SUBJECTIVE: The patient was admitted for sepsis and pneumonia. He was transferred from Intensive Care Unit to regular floor. He is doing much better. He denies any cough, shortness of breath or chest pain. The patient is on pureed diet for aspiration precautions, but he feels hungry. PHYSICAL EXAMINATION GENERAL: He is comfortable in bed, alert, awake, oriented. VITAL SIGNS: Temperature 98, pulse 92, regular, blood pressure this morning 127/80, respiratory rate 20, oxygen saturation 95% on room air. HEENT: Head is normocephalic, atraumatic. Eyes with pupils reactive to light. Oral mucosa is moist. NECK: Supple. LUNGS: With decreased breath sounds, scattered rhonchi in the left lung. HEART: Regular rhythm and rate. ABDOMEN: Soft, nontender and nondistended. EXTREMITIES: With no edema. NEUROLOGICAL: Normal. DIAGNOSTIC TESTS: This morning, CBC with WBC 12.5, hemoglobin 11.7, hematocrit 36.7, platelet count back to normal at 128. Chemistry with low potassium of 3.3, BUN 21, creatinine 0.6, glucose improved. Urine and blood cultures are negative after 5 days. Test for C. diff was negative. ASSESSMENT AND PLAN: 1. Sepsis with right lower lobe pneumonia, clinically improved. Case was discussed with infectious disease specialist who recommended to discontinue Merrem. We will continue doxycycline p.o. for short-term. 2. Coronary artery disease with ischemia and congestive heart failure, ejection fraction of 20%, presently hemodynamically stable and asymptomatic. Continue lisinopril and carvedilol. Continue atorvastatin and aspirin. 3. History of pancytopenia, improved with return to normal levels; and history of lymphoma, status post chemotherapy one week ago. 4. Type 2 diabetes mellitus. 5. Hypokalemia. We will replace potassium. Kristy Davies MD [facility]
--- NOTE | 2017-03-27 09:59 | RAD ---
HISTORY: follow up pneumonia COMPARISON: 03/23/2017 TECHNIQUE: Chest PA and lateral FINDINGS: LUNGS: The prior right medial base coalescent infiltrates has largely cleared. No interval pulmonary pathology noted. PLEURA: No significant pleural effusion identified. No pneumothorax apparent. CARDIOVASCULAR: Top-normal heart size OSSEOUS STRUCTURES: Bilateral shoulder arthrosis VISUALIZED UPPER ABDOMEN: Normal. OTHER FINDINGS: Port-A-Cath tip in right atrium -as before IMPRESSION: Interval clearance - right basal prior infiltrate. No interval pathology noted
[2017-03-27] MEDS ORDERED: Potassium Chloride 10 mEq ER Tab PO SCH (10:00)
--- NOTE | 2017-03-27 13:10 | PN ---
DATE: 03/27/2017 SUBJECTIVE: The patient is seen lying in bed on telemetry. He is more awake and alert. He feels comfortable at the present time. He has been doing some ambulating. CURRENT MEDICATIONS: Include carvedilol 3.125 mg b.i.d., doxycycline, Glucotrol, subcutaneous heparin, insulin coverage, potassium, Protonix, Zestril 10 mg daily, and Xopenex. OBJECTIVE: GENERAL: He is an elderly man who appears comfortable at rest. VITAL SIGNS: His blood pressure is 120/70 with pulse of 90 in sinus, respirations are 16. He is afebrile. HEENT: No JVD. CHEST: Few scattered rhonchi. HEART: PMI displaced laterally with soft tones noted. ABDOMEN: Soft, nontender with bowel sounds. EXTREMITIES: There is no edema. DIAGNOSTIC DATA: Potassium is 3.1, BUN and creatinine 25 and 0.6. White count 12.9 with hemoglobin and hematocrit 11.1 and 35.5, platelet count of 150,000. IMPRESSION: 1. Right lower lobe pneumonia, clinically improved. 2. Coronary artery disease with severe left ventricular dysfunction, being managed medically at the present time. 3. History of lymphoma, status post recent chemotherapy. 4. Hypokalemia which has been replaced. RECOMMENDATIONS: At this time, continue conservative cardiac management as advised. His current medications, we will continue as well. Increased ambulation is advised. We will be happy to follow along as needed. Deyvi Louis MD
[2017-03-27 15:59] VITALS: PULSE 88
--- NOTE | 2017-03-27 21:01 | PN ---
DATE: 03/27/2017 SUBJECTIVE: Patient is seen early this morning in room 269, bed 1. He is doing well. No fevers and no chills. PHYSICAL EXAMINATION VITAL SIGNS: Temperature is 98, blood pressure is 112/70, respiratory rate of 16. HEENT: Unremarkable. NECK: Supple.\ LUNGS; Decreased breath sounds. HEART: Normal S1, S2. ABDOMEN: Soft. LABORATORY EXAMINATION: Reveals the patient's white count is noted to be 12.9, hemoglobin above 11. Microbiology is noted. Blood cultures are negative. ASSESSMENT AND PLAN: This is a 76-year-old male who is seen early this morning in no acute distress, nontoxic with diabetes, hypertension, hyperlipidemia, lymphoma status post chemotherapy, history of colonic polyps, and Port-A-Cath catheterization, admitted on this admission with sepsis, with septic shock, neutropenic, febrile, healthcare-associated pneumonia, respiratory failure, intubated on vent, with acute kidney injury. Patient is doing well day #7 of meropenem. The antibiotics were discontinued. Patient is doing much better with possible discharge today. Wilmar Gaines MD
--- NOTE | 2017-03-28 01:18 | DS ---
HISTORY OF PRESENT ILLNESS: Patient is 76-year-old male who was admitted for septic shock with right lower lobe pneumonia and severe neutropenia. Patient was treated in Intensive Care Unit, was intubated, on vasopressors, IV fluids, and IV antibiotics. Workup showed negative blood cultures and urine culture. He improved in Intensive Care Unit and was extubated and presently treated on regular floor. Patient is feeling much better. He denies any chest pain, shortness of breath. He still has slight cough. His appetite is improved. Patient is on pureed diet for aspiration precautions. Patient was evaluated yesterday by physical therapist and in PCU and treatment was recommended. PHYSICAL EXAMINATION: VITAL SIGNS: Today vitals are stable. Temperature 98.1, pulse 90, regular blood pressure 119/68, respiratory rate 20, oxygen saturation 100%. GENERAL: Patient is comfortable, sitting in the chair, alert, awake, oriented. HEENT: Head is normocephalic, atraumatic. Oral mucosa is moist. NECK: Supple. LUNGS: With decreased breath sounds but no rales or rhonchi. No wheezing. HEART: Regular rhythm and rate of 90 per minute. ABDOMEN: Soft, nontender and nondistended. EXTREMITIES: With no edema. DIAGNOSTIC TEST: Pertinent tests showed CBC with improved WBC 12.9 this morning, hemoglobin 11.1, hematocrit 35.5, and platelet count 150. His chemistry showed hypokalemia, with potassium 3.1, his BUN is 25, creatinine is 0.6. Patient has fluctuating glucose between 170 and 280. Patient has repeated chest x-ray which showed right lower lobe pneumonia resolved and no other lung pathology. ASSESSMENT: 1. History of septic shock and right lower lobe pneumonia, resolved. 2. Severe neutropenia secondary to chemotherapy resolved. 3. Lymphoma with active chemotherapy, last chemotherapy 2 weeks' ago. 4. Type 2 diabetes mellitus. 5. Hypokalemia. 6. Coronary artery disease. PLAN OF TREATMENT: We will continue doxycycline p.o. for next couple of days. We will continue nebulizer treatments. Patient will require physical therapy, and he is evaluated for transfer to Transitional Care Unit. Patient will be maintained on insulin for better glucose control and continue with glipizide 5 mg. I stopped Lasix. Monitor for any fluid retention. Patient has persistent hypokalemia. We will also add potassium to his daily regiment. We will continue lisinopril and beta-susanne. Kristy Davies MD [facility]
[2017-03-28] MEDS ORDERED: Pantoprazole 40 mg EC Tab PO SCH (07:30)
== END 2017-03-27 16:03 | DRG 871 ==
LOC: ED 09:19 → ERH 10:24 → ICU 11:56 → 3RNO 03-25 13:12
PROVIDERS: ADMIT Family Medicine; ATTEND Family Medicine
PROC: 5A1935Z Respiratory Ventilation, Less than 24 Consecutive Hours (ICD-10-PCS; principal; 2017-03-21)
PROC: 0BH17EZ Insertion of Endotracheal Airway into Trachea, Via Natural or Artificial Opening (ICD-10-PCS; 2017-03-21)
PROC: 06HY33Z Insertion of Infusion Device into Lower Vein, Percutaneous Approach (ICD-10-PCS; 2017-03-21)
PROC: 5A09457 Assistance with Respiratory Ventilation, 24-96 Consecutive Hours, Continuous Positive Airway Pressure (ICD-10-PCS; 2017-03-22)
PROC: 30233N1 Transfusion of Nonautologous Red Blood Cells into Peripheral Vein, Percutaneous Approach (ICD-10-PCS; 2017-03-22)
PROC: 3E0F7GC Introduction of Other Therapeutic Substance into Respiratory Tract, Via Natural or Artificial Opening (ICD-10-PCS; 2017-03-23)
DX: A41.9 Sepsis, unspecified organism (principal); R65.21 Severe sepsis with septic shock; J96.91 Respiratory failure, unspecified with hypoxia; J18.9 Pneumonia, unspecified organism; D61.818 Other pancytopenia; N17.9 Acute kidney failure, unspecified; D70.1 Agranulocytosis secondary to cancer chemotherapy; C83.30 Diffuse large B-cell lymphoma, unspecified site; E11.65 Type 2 diabetes mellitus with hyperglycemia; I42.8 Other cardiomyopathies; E87.2 Acidosis; I50.22 Chronic systolic (congestive) heart failure; E86.0 Dehydration; D70.3 Neutropenia due to infection; I11.0 Hypertensive heart disease with heart failure; I25.10 Atherosclerotic heart disease of native coronary artery without angina pectoris; E78.00 Pure hypercholesterolemia, unspecified; T45.1X5A Adverse effect of antineoplastic and immunosuppressive drugs, initial encounter; E87.6 Hypokalemia; R13.10 Dysphagia, unspecified; Y95 Nosocomial condition; R74.0 Nonspecific elevation of levels of transaminase and lactic acid dehydrogenase [LDH]; Z79.82 Long term (current) use of aspirin; Z79.899 Other long term (current) drug therapy; Z95.5 Presence of coronary angioplasty implant and graft; Z86.010 Personal history of colon polyps

== ENCOUNTER 2017-03-27 16:08 | Inpatient (IN) | payer MEDICARE ==
[2017-03-27] MEDS: Insulin Reg-MEDIUM-Coverage SC SCH (22:14)
[2017-03-27 23:22] VITALS: BMI 20.5
[2017-03-27] MEDS ORDERED: Influenza Vaccine 60 mcg/0.5 mL SYR (4YR UP) IM ONE (23:22)
[2017-03-27] MEDS ORDERED: Pneumococcal 23-Valent Vaccine IM ONE (23:22)
--- NOTE | 2017-03-28 02:20 | CON ---
For Dr. Huang. CHIEF COMPLAINT: Deconditioning. HISTORY OF PRESENT ILLNESS: The patient is a 76-year-old male now seen on TCU after he was admitted by the emergency room to the intensive care unit for neutropenic sepsis, respiratory failure status post intubation, acute kidney injury with treatment for non-Hodgkin lymphoma status post R-CHOP. At present, he is resting comfortably on TCU for reconditioning and continued monitoring and strengthening as per Dr. Darling, his primary doctor. He appears in no acute distress. His family is at the bedside. PAST MEDICAL HISTORY: The patient's past medical history is significant for neutropenic sepsis, respiratory failure as above, diabetes mellitus, hypertension, hyperlipidemia, non-Hodgkin lymphoma status post R-CHOP treatment, oropharyngeal candidiasis. ALLERGIES: NO KNOWN ALLERGIES. MEDICATIONS: His medications at this point include Coreg, Doryx, Glucotrol, heparin, insulin coverage, potassium, Mycelex Julio Cesar, Protonix, Xopenex, Zestril and BiPAP. FAMILY HISTORY AND SOCIAL HISTORY: Noncontributory. The patient denies smoking or alcohol use, retired, lives with his . REVIEW OF SYSTEMS: A 12-point review of systems is negative to question except as for items mentioned in the history of present illness. This is a complex medical patient with a comprehensive and detailed history and physical done this visit in excess of one hour time. OBJECTIVE: VITAL SIGNS: Temperature 97.8, pulse 102, respirations 20, blood pressure 103/54 with a pulse ox of 95%. HEENT: Unremarkable with whitish coating of the tongue modestly improved after Mycelex Troches were started. NECK: Supple. HEART: Tachy rate, regular rhythm. LUNGS: Scattered rhonchi, with decreased breath sounds in the bases. ABDOMEN: Soft and nontender. EXTREMITIES: No edema. SKIN: Warm and dry. NEUROLOGIC: Awake, alert and oriented. LABORATORY DATA: The patient's labs were done, white blood cell count of 12.9, hemoglobin 11.1, hematocrit 35.5, platelet count of 150,000. He was transfused while he was on the medical floor for hemoglobin of 7.4 on 03/22 with a hemoglobin today of 11.1. His chem metabolic panel showed a potassium of 3.1, carbon dioxide of 39, BUN of 25 with 0.6 creatinine. Total protein of 4.9, otherwise normal chem metabolic panel. The patient's other testing included a chest x-ray done earlier today which was read as interval clearance, right basal, prior infiltrate, no interval pathology noted. 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 Salguero on 08/01/2016, again diffuse large B cell lymphoma. The patient now being status post respiratory failure with neutropenic sepsis; anemia of chronic disease; status post respiratory failure with intubation, extubation; pancytopenia, improved; oropharyngeal candidiasis with diabetes mellitus possibly secondary to steroids; atherosclerotic cardiovascular disease; hyperlipidemia; history of GI bleed; peptic ulcer disease; arteriovenous malformation. PLAN: Plan for this patient, after conservation with Dr. Huang, is to continue the TCU protocols for reconditioning, correct his electrolyte imbalance with hypokalemia as per Dr. Darling. We will monitor clinically with labs. Prognosis for this patient is guarded. Francisco Farley MD
[2017-03-28] MEDS: Pantoprazole 40 mg EC Tab PO SCH (05:32)
[2017-03-28] MEDS: Insulin Reg-MEDIUM-Coverage SC SCH ×4 (07:05→22:08)
[2017-03-28] MEDS: Levalbuterol 0.63 MG/3 ML Inhal Soln UD IH SCH ×3 (07:23→20:13)
[2017-03-28 07:44] LABS: BASO # 0.01 K/mm3 (0.0-2.0); BASO % 0.1 % (0.0-3.0); EOS % 0.2 % (1.5-5.0); GRAN % 89.1 % (50.0-68.0); HEMATOCRIT 34.7 % (42.0-52.0); LYMPH # 0.6 (1.2-3.4); LYMPH % 4.8 % (22.0-35.0); MEAN CELL VOLUME 90.1 fl (80.0-105.0); MEAN CORPUSCULAR HEMOGLOBIN 28.3 pg (25.0-35.0); MEAN CORPUSCULAR HGB CONC 31.4 g/dl (31.0-37.0); MONO # 0.7 (0.1-0.6); MONO % 5.8 % (1.0-6.0); PLATELET COUNT 172 10^3/uL (120.0-450.0); RED CELL DISTRIBUTION WIDTH 16.4 % (11.5-14.5); WHITE BLOOD COUNT 11.6 10^3/ul (4.5-11.0)
[2017-03-28 07:58] LABS: ALKALINE PHOSPHATASE 110 U/L (38-126); ALT/SGPT 44 U/L (7-56); AST/SGOT 20 U/L (17-59); BILIRUBIN,TOTAL 0.3 mg/dL (0.2-1.3); BLOOD UREA NITROGEN 23 mg/dL (7-21); CALCIUM 8.4 mg/dL (8.4-10.5); CARBON DIOXIDE 36 mmol/L (21-33); CHLORIDE 100 mmol/L (98-107); GFR AFRICAN-AMERICAN > 60; GLUCOSE,RANDOM 260 mg/dL (70-110); POTASSIUM 3.6 mmol/L (3.6-5.0); SODIUM 138 mmol/L (132-148); TOTAL PROTEIN 4.8 g/dL (5.8-8.3)
[2017-03-28 08:12] LABS: ALB/GLOB RATIO 1.1 (1.1-1.8)
[2017-03-28] MEDS: Potassium Chloride 10 mEq ER Tab PO SCH ×2 (09:00→17:50)
[2017-03-28 09:27] LABS: ANISOCYTOSIS 1+; ATYPICAL LYMPHOCYTE 1 % (0.0-0.0); BAND 4 % (0-2); HYPOCHROMIA 1+; NEUTROPHIL 85 % (50.0-70.0); PLATELET ESTIMATE NORMAL (NORMAL)
[2017-03-28 09:28] LABS: TOXIC GRANULATION 1+
--- NOTE | 2017-03-29 00:58 | PN ---
DATE: SUBJECTIVE: The patient was admitted to Transitional Care Unit for treatment after hospitalized for septic shock, right lobe pneumonia, severe neutropenia. The patient recovered fully from infection. He was transferred to TCU due to deconditioning for further rehabilitation. He is feeling better this morning. He continues with some cough. His swallowing significantly improved and he tolerates chopped diet. PHYSICAL EXAMINATION: VITAL SIGNS: He is afebrile, temperature is 98.7, pulse 88, blood pressure is 120/61, respiratory rate is 18. GENERAL: He is comfortable, sitting on the edge of the bed, alert, awake, and oriented. HEENT: Head is normocephalic and atraumatic. Eyes, pupils are reactive to light. No jaundice. Oral mucosa is moist. NECK: Supple. LUNGS: With decreased breath sounds. No rales or wheezing. HEART: Regular rhythm and rate. ABDOMEN: Soft, nontender, and nondistended. EXTREMITIES: No edema or cyanosis. NEUROLOGICAL: Normal. DIAGNOSTIC TESTS: CBC this morning with pertinent findings of WBC 11.6, hemoglobin 10.9, and platelet count 172. Chemistry with improved electrolytes and stable renal function. Glucose remains fluctuating between 182 and 160. ASSESSMENT: 1. A 76-year-old male, admitted for deconditioning after septic shock and right lobe pneumonia. 2. Type 2 diabetes mellitus. 3. Coronary artery disease. 4. Lymphoma. PLAN OF TREATMENT: Continue oral doxycycline to finish treatment of 7 days. Continue insulin coverage and increase glipizide for better glucose control. Continue monitoring his WBC and hemoglobin. Continue physical therapy. Kristy Davies MD
--- NOTE | 2017-03-29 02:35 | CON ---
DATE: 03/28/2017 LOCATION: The patient is in room number 315. CHIEF COMPLAINT: Weakness times several days. HISTORY OF PRESENT ILLNESS: This is a 76-year-old male with diabetes mellitus, hypertension, and history of lymphoma who has had chemotherapy, history of colon polyps, history of Port-A-Cath and had cardiac catheterization with stent placement, he has no known allergies who was admitted to the hospital with sepsis and septic shock with neutropenic febrile. The patient with healthcare-associated pneumonia, respiratory failure, intubated in the ICU, was on the vent with acute kidney injury. All cultures were negative. He was eventually extubated. REVIEW OF SYSTEMS: Reveals the patient is not having any fevers or any chills. He is doing much better. No nausea or vomiting or chest pain. PAST MEDICAL HISTORY: Significant for diabetes, hypertension, history of lymphoma, and history of colonic polyps. PAST SURGICAL HISTORY: Significant for Port-A-Cath and the patient has had a cardiac catheterization and stent placement. MEDICATIONS: Medications at the hospital are noted and reviewed. PHYSICAL EXAMINATION: VITAL SIGNS: On exam, temperature is 98, blood pressure is 103/50, respiratory rate of 20, and heart rate of 102. HEENT: Examination of HEENT is unremarkable. NECK: Supple. LUNGS: Have decreased breath sounds. HEART: Exam is normal S1 and S2. GASTROINTESTINAL: Abdominal examination is soft and nontender. LABORATORY DATA: Laboratory examination reveals his white count of 11,600, and hemoglobin of 10. Chemistries are noted. BUN of 23 and creatinine of 0.6. Urinalysis is noted and heparin-induced antibody is a weak positive and influenza is negative. Urine for Legionella and is negative. ASSESSMENT AND PLAN: This is a 76-year-old male with diabetes, hypertension, lymphoma and chemotherapy who was initially admitted to the acute care with septic shock, neutropenic febrile, and healthcare-associated pneumonia with acute kidney injury, respiratory failure, intubated on a ventilator and completed 7 days of meropenem. Currently transferred to Transitional Care for weakness and rehabilitation. The patient's meropenem was discontinued and currently on doxycycline p.o. which will complete in the next 24 to 48 hours. Wilmar Gaines MD
[2017-03-29] MEDS: Pantoprazole 40 mg EC Tab PO SCH (05:54)
[2017-03-29 07:05] LABS: HEMATOCRIT 35.1 % (42.0-52.0); MEAN CELL VOLUME 90.7 fl (80.0-105.0); MEAN CORPUSCULAR HEMOGLOBIN 27.6 pg (25.0-35.0); MEAN CORPUSCULAR HGB CONC 30.5 g/dl (31.0-37.0); MEAN PLATELET VOLUME 9.9 fl (7.0-11.0); RED CELL DISTRIBUTION WIDTH 16.5 % (11.5-14.5); WHITE BLOOD COUNT 10.7 10^3/ul (4.5-11.0)
[2017-03-29] MEDS: Levalbuterol 0.63 MG/3 ML Inhal Soln UD IH SCH ×3 (07:33→20:32)
[2017-03-29 07:38] LABS: ALKALINE PHOSPHATASE 118 U/L (38-126); ALT/SGPT 36 U/L (7-56); AST/SGOT 25 U/L (17-59); BILIRUBIN,TOTAL 0.3 mg/dL (0.2-1.3); BLOOD UREA NITROGEN 20 mg/dL (7-21); CALCIUM 8.7 mg/dL (8.4-10.5); CARBON DIOXIDE 32 mmol/L (21-33); CHLORIDE 103 mmol/L (98-107); GFR AFRICAN-AMERICAN > 60; GLUCOSE,RANDOM 225 mg/dL (70-110); POTASSIUM 3.8 mmol/L (3.6-5.0); SODIUM 141 mmol/L (132-148)
[2017-03-29] MEDS: Insulin Reg-MEDIUM-Coverage SC SCH ×4 (07:51→21:37)
[2017-03-29] MEDS: Potassium Chloride 10 mEq ER Tab PO SCH ×2 (08:38→17:44)
--- NOTE | 2017-03-29 09:37 | PN ---
DATE: 03/29/2017 SUBJECTIVE: The patient is in bed in no acute distress, nontoxic on exam. OBJECTIVE: VITAL SIGNS: Temperature is 97, blood pressure is 120/70, respiratory rate of 18. HEENT: Examination of HEENT is unremarkable. NECK: Supple. LUNGS: Have decreased breath sounds. HEART: Normal S1, S2. ABDOMEN: Soft. LABORATORY EXAMINATION: Reveals the patient's white count is 10,700 this morning, hemoglobin of 10, and platelets of 203. Chemistries reveals a BUN of 20, creatinine 0.6. Microbiology is noted. ASSESSMENT AND PLAN: A 76-year-old male with diabetes mellitus, hypertension, history of lymphoma, history of chemotherapy, history of colonic polyps, Port-A-Cath, and cardiac catheterization with stent placement now who was admitted with septic shock with neutropenic febrile healthcare-associated pneumonia, acute kidney injury, respiratory failure, intubated on a ventilator, completed antibiotic therapy and meropenem, and the patient had negative urine for Legionella antigen, negative cultures. We will discontinue the doxycycline. The patient is at risk for developing nosocomial infections. Wilmar Gaines MD
--- NOTE | 2017-03-29 15:01 | PN ---
DATE: 03/28/2017 [facility] floor. For Dr. Huang. SUBJECTIVE: The patient is a 76-year-old male seen sitting up in bed. at the bedside, reporting that he feels a little stronger today after sitting in a chair with exercises done for strengthening. He is known to suffer from non-Hodgkin lymphoma, status post treatment with R-CHOP with patient treated for neutropenic sepsis for respiratory failure, status post extubation. He is now participating in reconditioning. OBJECTIVE/PHYSICAL EXAMINATION: VITAL SIGNS: Temperature 97.9, pulse 91, respirations 20, blood pressure 123/70, and pulse ox of 99%. HEENT: Unremarkable. Tongue is moist with his oropharyngeal candidiasis now improving with Mycelex troches being given. NECK: Supple. HEART: Regular rate. LUNGS: Scattered rhonchi. Minimal decreased breath sounds at the bases. ABDOMEN: Soft and nontender. EXTREMITIES: No edema. SKIN: Warm and dry. NEUROLOGIC: Awake, alert, and oriented x3. LABORATORY DATA: The patient's labs were done to include a white blood cell count of 11.6, hemoglobin 10.9, hematocrit 34.7, platelet count 172,000. Chem metabolic panel showing a BUN of 22 with a creatinine 0.6. Non-fasting glucose of 260. Total protein 4.0, albumin 2.5, otherwise normal chem metabolic panel. ASSESSMENT: The assessment for this patient is that of deconditioning, status post respiratory failure with neutropenic sepsis, now improving; history of diffuse large B-cell lymphoma, status post R-CHOP (rituximab, cyclophosphamide, doxorubicin hydrochloride, vincristine, prednisone) treatment; peptic ulcer disease history; atherosclerotic cardiovascular disease. PLAN: Plan for this patient after consultation with Dr. Huang is to continue present medical regimen with the patient to participate with TCU protocols, and we will monitor clinically with labs. Francisco Farley MD
--- NOTE | 2017-03-29 18:07 | PN ---
DATE: 03/29/2017 This is Mr. Cruz's hospital visit on TCU. For Dr. Huang. SUBJECTIVE: The patient is a 76-year-old male seen sitting up in bed. is at the bedside reported that he has been ambulating earlier today. Feels stronger after his admission to TCU for reconditioning after suffering from neutropenic sepsis, respiratory failure status post intubation earlier in his hospital stay. He is known to suffer from non-Hodgkin's lymphoma status post R-CHOP treatment. He is otherwise in no acute distress this visit. PHYSICAL EXAMINATION: VITAL SIGNS: Temperature 97.9, pulse 79, respirations 20, blood pressure 123/70, pulse ox 90%. HEENT: Unremarkable. His oropharyngeal candidiasis is improving. NECK: Supple. HEART: Regular rate. LUNGS: Clear. ABDOMEN: Soft and nontender. EXTREMITIES: No edema. SKIN: Warm and dry. LABORATORY DATA: The patient's labs were done to include a white blood cell count of 10.7, hemoglobin 10.7, hematocrit of 35.1, platelet count of 203,000. Chem metabolic panel within normal limits except for non-fasting glucose of 352 with a total protein of 5.0, albumin of 2.5, otherwise normal chem metabolic panel. ASSESSMENT: The assessment for this patient is that of deconditioning status post treatment for neutropenic sepsis with respiratory failure, non-Hodgkin's lymphoma status post R-CHOP, oropharyngeal candidiasis, diabetes mellitus, and peptic ulcer disease history. PLAN: The plan for this patient after conversation with Dr. Huang is to continue present medical regimen with prognosis for this patient guarded. We will monitor clinically with labs as indicated. Francisco Farley MD
--- NOTE | 2017-03-29 18:46 | PN ---
SUBJECTIVE: Patient remains in PCU. He denies any new complaints. He seems more depressed. Denies any insomnia. His appetite is fair. PHYSICAL EXAMINATION: VITAL SIGNS: Stable. Temperature 98.1, pulse 91, regular, blood pressure 101/59, and respiratory rate 18. GENERAL: He is comfortable in bed. Alert, awake, oriented. HEENT: Head is normocephalic and atraumatic. Eyes, pupils are reactive to light. No jaundice. Oral mucosa is moist.. NECK: Supple. LUNGS: Clear to auscultation. HEART: Regular rhythm and rate. ABDOMEN: Soft, nontender, nondistended. EXTREMITIES: No edema. No calf tenderness. DIAGNOSTIC TESTS: CBC this morning is stable with WBC back to normal at 10.7, hemoglobin stable 10.7. Chemistry with normal electrolytes, fluctuating sugar between 170 and 350. ASSESSMENT AND PLAN: 1. History of septic shock with neutropenia and right lobe pneumonia. 2. Coronary artery disease. 3. Lymphoma. 4. Type 2 diabetes mellitus. PLAN OF TREATMENT: Continue present therapy. Monitor glucose. We will adjust his glipizide, increase dose. I will start patient on sertraline 25 mg daily for depression. Encourage ambulation with physical therapy. Kristy Davies MD
[2017-03-30] MEDS: Pantoprazole 40 mg EC Tab PO SCH (06:37)
[2017-03-30] MEDS: Insulin Reg-MEDIUM-Coverage SC SCH ×4 (07:42→22:19)
[2017-03-30] MEDS: Levalbuterol 0.63 MG/3 ML Inhal Soln UD IH SCH ×3 (07:45→19:50)
[2017-03-30 07:59] LABS: HEMATOCRIT 34.6 % (42.0-52.0); MEAN CELL VOLUME 90.1 fl (80.0-105.0); MEAN CORPUSCULAR HEMOGLOBIN 28.1 pg (25.0-35.0); MEAN CORPUSCULAR HGB CONC 31.2 g/dl (31.0-37.0); MEAN PLATELET VOLUME 9.5 fl (7.0-11.0); RED CELL DISTRIBUTION WIDTH 16.3 % (11.5-14.5); WHITE BLOOD COUNT 8.6 10^3/ul (4.5-11.0)
[2017-03-30 08:06] LABS: ALKALINE PHOSPHATASE 126 U/L (38-126); ALT/SGPT 39 U/L (7-56); AST/SGOT 27 U/L (17-59); BILIRUBIN,TOTAL 0.3 mg/dL (0.2-1.3); BLOOD UREA NITROGEN 18 mg/dL (7-21); CALCIUM 8.5 mg/dL (8.4-10.5); CARBON DIOXIDE 32 mmol/L (21-33); CHLORIDE 102 mmol/L (98-107); GFR AFRICAN-AMERICAN > 60; GLUCOSE,RANDOM 225 mg/dL (70-110); POTASSIUM 4.1 mmol/L (3.6-5.0); SODIUM 138 mmol/L (132-148); TOTAL PROTEIN 5.1 g/dL (5.8-8.3)
[2017-03-30 08:07] LABS: ALB/GLOB RATIO 1.1 (1.1-1.8)
[2017-03-30] MEDS: Potassium Chloride 10 mEq ER Tab PO SCH ×2 (08:36→17:56)
--- NOTE | 2017-03-30 13:38 | PN ---
DATE: 03/30/2017 SUBJECTIVE: The patient is seen earlier today in room 315. PHYSICAL EXAMINATION: VITAL SIGNS: Temperature is 98, blood pressure is 120/70, respiratory rate 16. HEENT: Unremarkable. NECK: Supple. LUNGS: Have decreased breath sounds. HEART: Normal S1, S2. ABDOMEN: Soft. LABORATORY EXAMINATION: Reveals white count is 8.6, hemoglobin of 10. Chemistries reveal a BUN of 18, creatinine 0.5. ASSESSMENT AND PLAN: A 76-year-old male with diabetes mellitus, hypertension, history of lymphoma, history of chemotherapy, history of colonic polyps, Port-A-Cath, cardiac catheterization with stent placement, who is admitted with septic shock, neutropenic febrile with health care-associated pneumonia, acute kidney injury, respiratory failure, was intubated on the ventilator, completed antibiotics with meropenem, currently off of antibiotics, afebrile, and workup was negative. However, the patient is at risk for developing nosocomial infections. Wilmar Gaines MD
--- NOTE | 2017-03-30 18:07 | PN ---
DATE: 03/30/2017 This is [facility] visit on TCU. For Dr. Huang. SUBJECTIVE: The patient is a 76-year-old male, seen sitting up at the bedside, at the bedside, participating with physiotherapy protocols on TCU for reconditioning, transferred after neutropenic sepsis, respiratory failure, status post intubation earlier in his hospital stay. He suffers from NHL status post R-CHOP treatment. He reports his appetite is good, in no acute distress. PHYSICAL EXAMINATION: VITAL SIGNS: Temperature 98.5, pulse 97, respirations 20, blood pressure 130/78, pulse ox 95%. HEENT: Unremarkable. Tongue is improving from oropharyngeal candidiasis changes. NECK: Supple. HEART: Regular rate. LUNGS: Clear. ABDOMEN: Soft and nontender. EXTREMITIES: No edema. SKIN: Warm and dry. NEUROLOGIC: Awake, alert, and oriented x3. LABORATORY DATA: The patient's labs were done, white blood cell count of 8.6, hemoglobin 10.8, hematocrit of 34.6, platelet count of 201,000. Chem metabolic panel completely within normal range except for a non-fasting glucose of 272. ASSESSMENT: The assessment for this patient is that of deconditioning status post treatment for neutropenic sepsis and respiratory failure, non-Hodgkin's lymphoma status post R-CHOP, diabetes mellitus, peptic ulcer disease, and oropharyngeal candidiasis. PLAN: The plan for this patient after conversation with Dr. Huang is to continue present medical regimen. We will monitor clinically with labs with the prognosis for this patient guarded. Francisco Farley MD
--- NOTE | 2017-03-30 20:27 | PN ---
DATE: Covering for Dr. Darling. SUBJECTIVE: The patient is a 76-year-old [place] male lying in bed, seems to be comfortable. He was admitted initially in the ICU because of septic shock. He had respiratory failure, was intubated and had acute kidney injury. He has been receiving chemotherapy. He had dropped therapy almost 2 weeks ago. History of non-Hodgkin lymphoma. PHYSICAL EXAMINATION GENERAL: He is awake, alert, oriented, communicative. VITAL SIGNS: He is afebrile, pulse 97, respirations 20, blood pressure 100/60. LUNGS: Bilateral good airflow. No rhonchi or crackle. HEART: S1 and S2 audible. ABDOMEN: Soft. Nontender. No rebound. No guarding. NEUROLOGICAL: The patient is awake, alert, oriented, able to communicate. EXTREMITIES: Bilateral legs, no edema. LABORATORY EXAMINATION: WBC is 8.6, hemoglobin 10.8, hematocrit 34.4, platelets 204. Chemistries: Sodium 138, potassium 4.1, chloride 102, CO2 32, BUN 18, creatinine 0.5, blood sugar of 272. Blood culture and urine culture on this admission have been negative. ASSESSMENT: 1. Non-Hodgkin's lymphoma, status post chemotherapy. 2. Deconditioning and difficulty walking. 3. Chronic anemia. 4. Status post respiratory failure. 5. Pancytopenia. 6. Oral thrush. 7. Coronary artery disease. 8. Non-insulin dependent diabetes. PLAN: Currently, the patient is on carvedilol, glipizide. He is on DVT prophylaxis. Blood sugar is being monitored. He is on Xopenex and Zoloft. We will continue all these medications and encourage ambulation. We will follow up. Marbin Quijano MD
[2017-03-31] MEDS: Pantoprazole 40 mg EC Tab PO SCH (05:43)
[2017-03-31] MEDS: Insulin Reg-MEDIUM-Coverage SC SCH ×4 (06:48→23:10)
[2017-03-31 07:21] LABS: HEMATOCRIT 34.9 % (42.0-52.0); MEAN CELL VOLUME 90.2 fl (80.0-105.0); MEAN CORPUSCULAR HEMOGLOBIN 28.4 pg (25.0-35.0); MEAN CORPUSCULAR HGB CONC 31.5 g/dl (31.0-37.0); MEAN PLATELET VOLUME 9.6 fl (7.0-11.0); RED CELL DISTRIBUTION WIDTH 16.4 % (11.5-14.5); WHITE BLOOD COUNT 8.3 10^3/ul (4.5-11.0)
[2017-03-31 07:44] LABS: ALKALINE PHOSPHATASE 123 U/L (38-126); ALT/SGPT 39 U/L (7-56); AST/SGOT 27 U/L (17-59); BILIRUBIN,TOTAL 0.3 mg/dL (0.2-1.3); BLOOD UREA NITROGEN 21 mg/dL (7-21); CALCIUM 8.6 mg/dL (8.4-10.5); CARBON DIOXIDE 32 mmol/L (21-33); CHLORIDE 103 mmol/L (98-107); GFR AFRICAN-AMERICAN > 60; GLUCOSE,RANDOM 213 mg/dL (70-110); POTASSIUM 4.1 mmol/L (3.6-5.0); SODIUM 139 mmol/L (132-148); TOTAL PROTEIN 5.2 g/dL (5.8-8.3)
[2017-03-31] MEDS: Levalbuterol 0.63 MG/3 ML Inhal Soln UD IH SCH ×3 (08:00→22:30)
[2017-03-31] MEDS: Potassium Chloride 10 mEq ER Tab PO SCH ×2 (13:01→17:16)
--- NOTE | 2017-03-31 15:16 | PN ---
DATE: 03/31/2017 SUBJECTIVE: The patient is in bed in no acute distress, nontoxic. No fevers and chills. PHYSICAL EXAMINATION: VITAL SIGNS: Temperature is 98, blood pressure is 106/50, and respiratory of 18. HEENT: Unremarkable. NECK: Supple. LUNGS: Have decreased breath sounds. HEART: Normal S1 and S2. ABDOMEN: Soft and nontender. LABORATORY EXAMINATION: Reveals a white count of 8.3, hemoglobin 11, platelets of 206. Chemistries reveals a BUN of 21 and creatinine of 0.5. Microbiology is noted. ASSESSMENT AND PLAN: This is a 76-year-old male with diabetes mellitus, hypertension, history of lymphoma, history of chemotherapy, history of colonic polyps, Port-A-Cath, cardiac catheterization and stent placement, admitted with septic shock, neutropenic febrile, healthcare-associated pneumonia, acute kidney injury, respiratory failure intubated on a ventilator and now off of antibiotics, extubated, comfortable. He is in Transitional Care and the patient is at risk for developing nosocomial infections. Review of the orders of the medications reveals the patient to be off of antibiotics. Wilmar Gaines MD
--- NOTE | 2017-03-31 19:26 | PN ---
DATE: 03/31/2017 SUBJECTIVE: The patient is a 76-year-old, seen and examined, lying in bed. He is verbally communicative, looks pale, able to communicate. is by the bedside. PHYSICAL EXAMINATION: VITAL SIGNS: He is afebrile. Pulse 92, respirations 18, blood pressure 125/70. LUNGS: Bilateral good airflow. No rhonchi or crackle. HEART: S1 and S2 audible. No murmur. ABDOMEN: Soft. Nontender. No rebound. No guarding. NEUROLOGICAL: The patient is awake, alert, oriented, able to communicate and ambulate. LABORATORY DATA: WBC is 8.3, hemoglobin 11, hematocrit 34.9, platelets of 206. Chemistries: Sodium 139, potassium 4.1, chloride 103, CO2 32, BUN 21, creatinine 0.5, blood sugar of 276. ASSESSMENT AND PLAN: 1. Non-Hodgkin's lymphoma, status post chemotherapy. 2. Deconditioning and difficulty walking. 3. Non-insulin dependent diabetes. 4. Coronary artery disease. 5. Pancytopenia. 6. Status post respiratory failure, was successfully extubated, seems to be stable now. 7. Chronic anemia. PLAN: The patient's MAR reviewed. He is on carvedilol. He is on glipizide and getting DVT prophylaxis and he is getting Mycelex Julio Cesar. He is on nebulizer treatment. We will continue all medicines, encourage ambulation. We will follow up. Marbin Quijano MD MTDD
--- NOTE | 2017-03-31 21:40 | PN ---
DATE: 03/31/2017 [facility]. For Dr. Huang. SUBJECTIVE: The patient is a 76-year-old male, seen lying awake in bed with family at the bedside, now participating with TCU protocol for deconditioning. After neutropenic sepsis treatment, he is getting stronger everyday he reports. He is pleasantly in no acute distress. PHYSICAL EXAMINATION: VITAL SIGNS: Temperature 98.2, pulse 82, respirations 18, blood pressure 125/70, and pulse ox 98%. HEENT: Unremarkable. NECK: Supple. HEART: Regular rate. LUNGS: Clear. ABDOMEN: Soft and nontender. EXTREMITIES: No edema. SKIN: Warm and dry. NEUROLOGIC: Awake, alert and oriented. LABORATORY DATA: The patient's labs were done; white blood cell count of 8.3, hemoglobin of 11.0, hematocrit of 34.9, and platelet count of 206,000. Chem metabolic panel within normal limits except for non-fasting glucose of 276. 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 PLAN: The plan for this patient after conversation with Dr. Huang is to continue present medical regimen. We will monitor clinically with labs. Also a consult with Dr. Cuevas, Podiatry, for the left foot great toe as per her recommendations as indicated. We will monitor clinically with labs. Francisco Farley MD
[2017-04-01] MEDS: Pantoprazole 40 mg EC Tab PO SCH (05:55)
[2017-04-01] MEDS: Insulin Reg-MEDIUM-Coverage SC SCH ×4 (06:45→21:43)
[2017-04-01] MEDS: Levalbuterol 0.63 MG/3 ML Inhal Soln UD IH SCH ×3 (07:37→21:50)
[2017-04-01] MEDS: Potassium Chloride 10 mEq ER Tab PO SCH ×2 (09:09→17:14)
--- NOTE | 2017-04-01 11:54 | PN ---
DATE: 04/01/2017 SUBJECTIVE: The patient is in bed, in no acute distress, nontoxic. PHYSICAL EXAMINATION: VITAL SIGNS: Temperature is 98, blood pressure is 120/70, respiratory rate is 18, and heart rate of 86. HEENT: Unremarkable. NECK: Supple. LUNGS: Decreased breath sounds. HEART: Normal S1 and S2. ABDOMEN: Soft and nontender. LABORATORY DATA: Reveals white count of 8.3, hemoglobin of 11, and platelets of 206. BUN of 21 and creatinine of 0.5. ASSESSMENT AND PLAN: A 76-year-old male with diabetes mellitus, hypertension, history of lymphoma, history of chemotherapy, history of colonic polyps, Port-A-Cath, cardiac catheterization, and stent placement, admitted with septic shock, neutropenic febrile, healthcare-associated pneumonia, acute kidney injury, and respiratory failure, intubated on ventilator currently, off of vent in Transitional Care. Currently off of antibiotics. Afebrile. The patient is at risk for developing nosocomial infections. Wilmar Gaines MD
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
[2017-04-01] MEDS ORDERED: Sodium Chloride 0.9% 500 ML IV SCH (18:45)
--- NOTE | 2017-04-01 18:45 | PN ---
DATE: 04/01/2017 This is [facility] [facility] visit on TCU. For Dr. Huang, SUBJECTIVE: The patient is a 76-year-old seen sitting up in bed, participating with TCU protocol for reconditioning, admitted for neutropenic sepsis which is now improved. He is known to suffer from NHL status post R-CHOP treatment with the patient also with oropharyngeal candidiasis, now improved. His appetite is better he reports. OBJECTIVE/PHYSICAL EXAMINATION: VITAL SIGNS: Temperature 98.4, pulse 102, respirations 18, blood pressure 86/55, pulse oximetry of 99%. HEENT: Unremarkable. NECK: Supple. HEART: Regular rate. LUNGS: Minimal decreased breath sounds. ABDOMEN: Soft, nontender. EXTREMITIES: No edema. SKIN: Warm and dry. NEUROLOGIC: Awake, alert and oriented x 3. LABORATORY DATA: The patient's labs were not done today. They will be repeated in the morning. His last fasting sugar is 252. ASSESSMENT: For this patient is that of deconditioning, non-Hodgkin's lymphoma status post R-CHOP treatment, status post neutropenic sepsis with respiratory failure, diabetes, peptic ulcer disease, oropharyngeal candidiasis with , gait disturbance. PLAN: For this patient after conversation with Dr. Huang is to continue his present medical regimen. We will monitor clinically with labs with discharge home as per Dr. Darling once he is stable. Francisco Farley MD
[2017-04-02] MEDS: Insulin Reg-MEDIUM-Coverage SC SCH ×4 (06:50→21:28)
[2017-04-02] MEDS: Pantoprazole 40 mg EC Tab PO SCH (06:51)
[2017-04-02] MEDS: Levalbuterol 0.63 MG/3 ML Inhal Soln UD IH SCH ×3 (07:28→20:17)
[2017-04-02 08:30] LABS: BASO # 0.04 K/mm3 (0.0-2.0); BASO % 0.5 % (0.0-3.0); EOS % 0.2 % (1.5-5.0); GRAN # 5.71 (1.4-6.5); GRAN % 69.5 % (50.0-68.0); LYMPH # 1.8 (1.2-3.4); LYMPH % 21.8 % (22.0-35.0); MEAN CELL VOLUME 90.9 fl (80.0-105.0); MEAN CORPUSCULAR HEMOGLOBIN 28.3 pg (25.0-35.0); MEAN CORPUSCULAR HGB CONC 31.1 g/dl (31.0-37.0); MEAN PLATELET VOLUME 8.9 fl (7.0-11.0); MONO # 0.7 (0.1-0.6); RED CELL DISTRIBUTION WIDTH 16.5 % (11.5-14.5); WHITE BLOOD COUNT 8.2 10^3/ul (4.5-11.0)
[2017-04-02 08:42] LABS: ALKALINE PHOSPHATASE 136 U/L (38-126); ALT/SGPT 40 U/L (7-56); AST/SGOT 26 U/L (17-59); BILIRUBIN,TOTAL 0.3 mg/dL (0.2-1.3); BLOOD UREA NITROGEN 18 mg/dL (7-21); CALCIUM 8.7 mg/dL (8.4-10.5); CARBON DIOXIDE 31 mmol/L (21-33); CHLORIDE 102 mmol/L (98-107); GFR AFRICAN-AMERICAN > 60; GLUCOSE,RANDOM 263 mg/dL (70-110); POTASSIUM 4.5 mmol/L (3.6-5.0); SODIUM 138 mmol/L (132-148); TOTAL PROTEIN 5.7 g/dL (5.8-8.3)
[2017-04-02 08:43] LABS: ALB/GLOB RATIO 1.1 (1.1-1.8)
[2017-04-02] MEDS: Potassium Chloride 10 mEq ER Tab PO SCH ×2 (08:52→17:58)
--- NOTE | 2017-04-02 09:24 | PN ---
DATE: 04/01/2017 SUBJECTIVE: The patient is 76-years old, seen and examined, lying in bed, seems to be comfortable, family just brought food from home, seems to be excited to have that, does not look in any distress, eating and tolerating, communicating. PHYSICAL EXAMINATION VITAL SIGNS: He is afebrile, pulse 102, respirations 18, blood pressure 86/55. LUNGS: Bilateral fair airflow. No rhonchi or crackle. HEART: S1 and S2 audible. ABDOMEN: Soft and nontender. No rebound. No guarding. NEUROLOGIC: The patient is awake and alert, able to communicate, participating in therapy. ASSESSMENT AND PLAN: 1. History of non-Hodgkin lymphoma. 2. Deconditioning and difficulty walking. 3. Ciy-dailbvs-tmqlbgnzb diabetes. 4. Coronary artery disease. 5. Pancytopenia. 6. Chronic anemia. 7. Status post respiratory failure, but seems to be doing well now. PLAN: I will continue the patient on current medications. MAR reviewed, seems to be appropriate. He is on carvedilol, glipizide, and subcutaneous heparin. Blood sugar is being monitored. He was complaining of right foot big toe nail pain, was evaluated by Medical Advisor and was found to have ingrown toenail was taken care of. Marbin Quijano MD
--- NOTE | 2017-04-02 11:13 | PN ---
DATE: SUBJECTIVE: The patient remains in Transitional Care Unit. The patient is feeling better. He is ambulating with some walker support. He denies any cough or chest pain. His appetite improved. He is on chopped diet for swallowing problems. PHYSICAL EXAMINATION: VITAL SIGNS: Stable. Temperature 98.4, pulse 87, blood pressure 137/71, and respiratory rate 18. GENERAL: He is comfortable, sitting in chair. Alert, awake, oriented. HEENT: Head is normocephalic and atraumatic. Eyes, pupils are reactive to light. Oral mucosa is moist. NECK: Supple. LUNGS: Clear to auscultation. HEART: Regular rhythm and rate. ABDOMEN: Soft, nontender, nondistended. EXTREMITIES: With no edema. NEUROLOGICAL: Shows alert, awake, and oriented person with normal speech. No sensor or motor deficits. DIAGNOSTIC PERTINENT TESTS: CBC with hemoglobin 11.5 and hematocrit 37. His WBC remained stable 8.2. Chemistry with normal electrolytes, normal renal and liver function. Glucose improved since increase of glipizide. Max glucose level was 263 over 24 hours. ASSESSMENT: 1. History of septic shock with neutropenia and right lobe pneumonia, resolved. 2. Coronary artery disease. 3. Type 2 diabetes mellitus. 4. Non-Hodgkin's lymphoma with active chemotherapy treatment. PLAN OF TREATMENT: Continue physical therapy, monitor closely for dysphagia, continue present medications, monitor blood pressure tends to be low. Kristy Davies MD
--- NOTE | 2017-04-02 14:12 | PN ---
DATE: 04/02/2017 SUBJECTIVE: The patient seen in bed, in no acute distress, nontoxic. OBJECTIVE: VITAL SIGNS: On exam, temperature is 98, blood pressure is 87/60, respiratory rate of 18, and heart rate of 102. HEENT: Examination is unremarkable. NECK: Supple. LUNGS: Have decreased breath sounds. HEART: Normal S1, S2 sounds. ABDOMEN: Soft. LABORATORY EXAMINATION: Reveals a white count of 8.2, hemoglobin of 11, BUN of 18, creatinine of 0.6, alkaline phosphatase is 136. Cultures are noted and Dr. Quijano's note from yesterday is reviewed. ASSESSMENT AND PLAN: This is a 76-year-old male seen earlier today in room 315 with diabetes mellitus; hypertension; history of lymphoma; history of chemotherapy; history of colonic polyps; Port-A-Cath; cardiac catheterization; stent placement and septic shock; neutropenic febrile; healthcare-associated pneumonia; acute kidney injury; respiratory failure, intubated on the ventilator now, the patient is off of antibiotics, afebrile and periods of hypotension is noted. Although clinically stable, review of medications reveals the patient to be on carvedilol and lisinopril. Wilmar Gaines MD
--- NOTE | 2017-04-02 16:32 | CP.PCM.PN ---
Subjective - Date & Time of Evaluation Date of Evaluation: 04/02/17 Time of Evaluation: 16:28 - Subjective Subjective: Podiatry Progress Note- Dr Cuevas 76 year old male patient seen at bedside 1 day s/p slant black of onychocryptosis left hallux medial border. Patient is seen resting comfortably in bed, in NAD, and AA0x3. Patient denies acute overnight events. Patient reports that pain has reduced. Patient denies n/v/sob/cp/chills/f or d. No other pedal complaints at this time. Objective - Vital Signs/Intake and Output Vital Signs (last 24 hours): Temp Pulse Resp BP Pulse Ox 97.6 F 87 18 137/71 99 04/02/17 10:00 04/02/17 14:04 04/02/17 10:00 04/02/17 14:04 04/01/17 11:43 - Medications Medications: Current Medications Carvedilol (Coreg) 3.125 mg PO 0800,1800 BIANKA PRN Reason: Protocol Last Admin: 04/02/17 08:49 Dose: 3.125 mg Clotrimazole (Mycelex Julio Cesar) 10 mg MT 5XD BIANKA PRN Reason: Protocol Last Admin: 04/02/17 14:04 Dose: 10 mg Glipizide (Glucotrol) 7.5 mg PO BID BIANKA PRN Reason: Protocol Last Admin: 04/02/17 10:00 Dose: 7.5 mg Heparin Sodium (Porcine) (Heparin) 5,000 units SC 0600,1800 BIANKA PRN Reason: Protocol Last Admin: 04/02/17 07:51 Dose: 5,000 units Insulin Human Regular (Humulin R Med) 0 units SC ACHS BIANKA PRN Reason: Protocol Last Admin: 04/02/17 12:28 Dose: 3 units Levalbuterol HCl (Xopenex) 0.63 mg IH TIDRESP BIANKA PRN Reason: Protocol Last Admin: 04/02/17 13:13 Dose: 0.63 mg Lisinopril (Zestril) 10 mg PO DAILY BIANKA PRN Reason: Protocol Last Admin: 04/02/17 14:04 Dose: 10 mg Pantoprazole Sodium (Protonix Ec Tab) 40 mg PO 0600 BIANKA PRN Reason: Protocol Last Admin: 04/02/17 06:51 Dose: 40 mg Potassium Chloride (Klor-Con 10) 10 meq PO 0800,1700 [facility] PRN Reason: Protocol Last Admin: 04/02/17 08:52 Dose: 10 meq Sertraline HCl (Zoloft) 25 mg PO DAILY [facility] Last Admin: 04/02/17 10:33 Dose: 25 mg - Labs Labs: 04/02/17 08:20 04/02/17 08:20 - Constitutional Appears: Well, Non-toxic, No Acute Distress - Extremities Exam Additional comments: VASC: DP and PT pulses palpable 2/4 b/l. CFT <3 seconds to all digits b/l. Temperature gradient cool to cool. No edema noted. NEURO: Gross sensation absent bilaterally. DERM: Nail borders to the halluces WNL. No open lesions noted. No erythema, purulence, fluctuance, or clinical signs of infection noted to left hallux. Nails 2-5 left foot and 1-5 on right foot are thickened, elongated and dystrophic with the presence of subungual debris. Skin appears diffusely dry. ORTHO: Mild pain on palpation left hallux medial border. Muscle strength 5/5 for all dorsiflexors, plantarflexors, inverters, and everters b/l. - Neurological Exam Neurological Exam: Alert, Awake, Oriented x3 - Psychiatric Exam Psychiatric exam: Normal Affect, Normal Mood Assessment and Plan - Assessment and Plan (Free Text) Assessment: 76 year old male patient s/p slant back onychocryptosis left hallux medial border Plan: Patient seen and evaluated Discussed plan in detail with attending Dr. Cuevas Labs, vitals, charts reviewed s/p slant back- reduced pain, no open lesions, no clinical signs of infection Patient is stable per podiatry standpoint Podiatry will sign off Please reconsult as needed. Thank you.
[2017-04-02 17:04] VITALS: PULSE 92; RESP 15; TEMP 37.4; O2SAT 100
[2017-04-03] MEDS: Pantoprazole 40 mg EC Tab PO SCH (06:04)
[2017-04-03 06:46] LABS: HEMATOCRIT 34.2 % (42.0-52.0); MEAN CELL VOLUME 89.3 fl (80.0-105.0); MEAN CORPUSCULAR HEMOGLOBIN 27.9 pg (25.0-35.0); MEAN CORPUSCULAR HGB CONC 31.3 g/dl (31.0-37.0); MEAN PLATELET VOLUME 9.2 fl (7.0-11.0); RED CELL DISTRIBUTION WIDTH 16.6 % (11.5-14.5); WHITE BLOOD COUNT 7.7 10^3/ul (4.5-11.0)
[2017-04-03] MEDS: Insulin Reg-MEDIUM-Coverage SC SCH (06:56)
[2017-04-03 07:49] LABS: ALKALINE PHOSPHATASE 137 U/L (38-126); ALT/SGPT 36 U/L (7-56); AST/SGOT 23 U/L (17-59); BILIRUBIN,TOTAL 0.3 mg/dL (0.2-1.3); BLOOD UREA NITROGEN 18 mg/dL (7-21); CALCIUM 8.6 mg/dL (8.4-10.5); CARBON DIOXIDE 27 mmol/L (21-33); CHLORIDE 101 mmol/L (98-107); GFR AFRICAN-AMERICAN > 60; GLUCOSE,RANDOM 180 mg/dL (70-110); POTASSIUM 4.2 mmol/L (3.6-5.0); SODIUM 136 mmol/L (132-148); TOTAL PROTEIN 5.4 g/dL (5.8-8.3)
[2017-04-03 07:54] LABS: ALB/GLOB RATIO 1.1 (1.1-1.8)
[2017-04-03] MEDS: Potassium Chloride 10 mEq ER Tab PO SCH (08:35)
[2017-04-03] MEDS: Levalbuterol 0.63 MG/3 ML Inhal Soln UD IH SCH (08:45)
[2017-04-03 10:52] VITALS: BP 87/52
--- NOTE | 2017-04-03 19:26 | PN ---
DATE: 04/03/2017 This is [facility] [facility]. For Dr. Huang. SUBJECTIVE: The patient is a 76-year-old male for discharge home today as per Dr. Darling after completing his reconditioning on TCU. He was admitted after he suffered neutropenic sepsis, known to suffer from non-Hodgkin's lymphoma status post R-CHOP treatment. For discharge home today without complaint. PHYSICAL EXAMINATION: VITAL SIGNS: Temperature 97.6, pulse 92, respirations 15, blood pressure is 90/53, pulse ox 100%. HEENT: Unremarkable. Oropharyngeal candidiasis is gone. NECK: Supple. HEART: Tachy rate, regular rhythm. LUNGS: Minimal decreased breath sounds. ABDOMEN: Soft and nontender. EXTREMITIES: No edema. SKIN: Warm and dry. NEUROLOGIC: Awake, alert and oriented x3. LABORATORY DATA: The patient's labs were done; white blood cell count of 7.7, hemoglobin of 10.2, hematocrit of 34.2, and platelet count of 211,000. Chem metabolic panel within normal range with a non-fasting glucose of 180, albumin is 2.8, with a total protein of 5.4. ASSESSMENT: The assessment for this patient is that of deconditioning, history of non-Hodgkin's lymphoma status post R-CHOP treatment, status post neutropenic sepsis with respiratory failure, intubation, diabetes mellitus, peptic ulcer disease, and oropharyngeal candidiasis, gait disturbance. PLAN: The plan for this patient after conversation with Dr. Huang is to continue present medical regimen. Need to follow up in the office approximately 1 week's time or earlier with continuation of treatment as per Dr. Huang's protocols. His medicines are to continue as per Dr. Darling with the patient follow up in [address] Huang in the office or earlier. Francisco Farley MD
--- NOTE | 2017-04-03 20:54 | PN ---
DATE: 04/03/2017 SUBJECTIVE: The patient was seen early this morning. No fevers. No chills. The patient was seen in room 315. OBJECTIVE: VITAL SIGNS: Temperature is 98, blood pressure is 90/50, and respiratory rate of 16. HEENT: Unremarkable. NECK: Supple. LUNGS: Has decreased breath sounds. HEART: Normal S1 and S2. ABDOMEN: Soft and nontender. LABORATORY DATA: Reveals a white count of 7.7, hemoglobin of 10, and platelets of 211. BUN of 18 and creatinine of 0.6. ASSESSMENT AND PLAN: This is a 76-year-old male who was seen early this morning in Transitional Care Unit with diabetes, hypertension, history of lymphoma, history of chemotherapy, history of colonic polyps, Port-A-Cath, cardiac catheterization, and stent placement. He was admitted to the acute care with septic shock; neutropenic febrile. The patient with healthcare-associated pneumonia, acute kidney injury, respiratory failure, and was intubated. Currently off of antibiotics, afebrile, he is doing well, awake and alert and this morning we will follow . Wilmar Gaines MD
--- NOTE | 2017-04-04 04:18 | DS ---
HISTORY OF PRESENT ILLNESS: The patient is a 76-year-old male who admitted for deconditioning and rehabilitation after hospitalization for septic shock, neutropenia and right lower lobe pneumonia. The patient was evaluated this morning. The patient is feeling much better. He is ambulatory. His appetite improved. There is no signs of dysphagia. PHYSICAL EXAMINATION AT DISCHARGE: GENERAL: He is sitting in reclining chair, alert, awake, and oriented. VITAL SIGNS: At discharge showed normal vital signs. Temperature of 97.4, pulse of 92 and regular, blood pressure of 90/53, and respiratory rate of 15. Oxygen saturation is around 100%. HEENT: Head is normocephalic and atraumatic. Eyes with pupils reactive to light. No jaundice. Oral mucosa is moist. No oral lesions. NECK: Supple. No neck masses. No JVD. LUNGS: Clear to auscultation. HEART: Regular rhythm and rate. ABDOMEN: Soft, nontender and nondistended. EXTREMITIES: With no edema, cyanosis or clubbing. Full range of motion. NEUROLOGIC: Showed no sensory or motor deficits. DIAGNOSTIC DATA: His diagnostic tests this morning, pertinent findings; CBC with stable hemoglobin of 10.7, hematocrit of 34.1, and platelet count of 211. His WBC remained stable at 7.7 on discharge. His chemistry on discharge showed normal electrolytes and normal renal function. ASSESSMENT/PRIMARY DIAGNOSES: 1. Deconditioning. 2. History of septic shock with neutropenia and right lobe pneumonia, fully resolved. 3. Coronary artery disease. 4. Type 2 diabetes mellitus. 5. Non-Hodgkin's lymphoma with active therapy treatment. PLAN OF TREATMENT: The patient will be discharged home today. Continue with chopped diet as for dysphagia and aspiration precaution. The patient will be maintained on his chronic medication, metformin 500 mg twice a day, glipizide 10 mg twice a day, lisinopril 10 mg daily, metoprolol 25 mg daily, aspirin daily, and simvastatin 40 mg daily. He was started on sertraline for depression in hospital, I will continue his 25 mg tablet daily. The patient was advised to follow up with primary care doctor next week on Saturday. He was also advised to make appointment to follow up with his oncologist Dr. Huang next week. Kristy Davies MD [facility] # [phone]
== END 2017-04-03 17:28 | disposition home or self-care (01) | DRG 871 ==
LOC: TRCU 16:08
PROVIDERS: ADMIT Family Medicine; ATTEND Family Medicine
PROC: F07Z9FZ Gait Training/Functional Ambulation Treatment using Assistive, Adaptive, Supportive or Protective Equipment (ICD-10-PCS; principal; 2017-03-28)
PROC: F07M6ZZ Therapeutic Exercise Treatment of Musculoskeletal System - Whole Body (ICD-10-PCS; 2017-03-28)
PROC: F08Z1ZZ Dressing Techniques Treatment (ICD-10-PCS; 2017-03-28)
PROC: F08Z2ZZ Grooming/Personal Hygiene Treatment (ICD-10-PCS; 2017-03-28)
PROC: F08Z0ZZ Bathing/Showering Techniques Treatment (ICD-10-PCS; 2017-03-28)
PROC: F08Z4ZZ Home Management Treatment (ICD-10-PCS; 2017-03-28)
DX: A41.9 Sepsis, unspecified organism (principal); R65.21 Severe sepsis with septic shock; J96.90 Respiratory failure, unspecified, unspecified whether with hypoxia or hypercapnia; N17.9 Acute kidney failure, unspecified; J18.9 Pneumonia, unspecified organism; D61.818 Other pancytopenia; C83.30 Diffuse large B-cell lymphoma, unspecified site; D70.3 Neutropenia due to infection; B37.0 Candidal stomatitis; B35.1 Tinea unguium; D63.8 Anemia in other chronic diseases classified elsewhere; E09.9 Drug or chemical induced diabetes mellitus without complications; E78.5 Hyperlipidemia, unspecified; I10 Essential (primary) hypertension; I25.10 Atherosclerotic heart disease of native coronary artery without angina pectoris; L60.0 Ingrowing nail; Y95 Nosocomial condition; Z86.010 Personal history of colon polyps; Z87.11 Personal history of peptic ulcer disease; Z92.21 Personal history of antineoplastic chemotherapy; R26.2 Difficulty in walking, not elsewhere classified

== ENCOUNTER 2017-10-01 10:46 | Day surgery (SDC) | payer MEDICARE ==
[2017-09-23 12:08] VITALS: BMI 24.7
[2017-10-01] MEDS ORDERED: Propofol 10 mg/ml Inj (20 ML) ONE (12:34)
[2017-10-01] MEDS ORDERED: Sodium Chloride 0.9% 1,000 ML IV SCH (14:00)
[2017-10-01 14:17] VITALS: O2SAT 98
[2017-10-01 14:57] VITALS: BP 124/64; PULSE 88; RESP 18; TEMP 97.5
[2017-10-01 15:43] LABS: BASO # 0.03 K/mm3 (0.0-2.0); BASO % 0.4 % (0.0-3.0); EOS # 0.2 (0.0-0.7); EOS % 3.4 % (1.5-5.0); GRAN # 3.16 (1.4-6.5); GRAN % 45.2 % (50.0-68.0); HEMOGLOBIN 12.3 g/dL (14.0-18.0); LYMPH # 3.1 (1.2-3.4); MEAN CELL VOLUME 90.5 fl (80.0-105.0); MEAN CORPUSCULAR HEMOGLOBIN 30.8 pg (25.0-35.0); MONO # 0.5 (0.1-0.6); RED CELL DISTRIBUTION WIDTH 13.2 % (11.5-14.5)
== END 2017-10-01 15:41 | disposition home or self-care (01) ==
LOC: ENDO 10:46
PROVIDERS: ATTEND Internal Medicine Gastroenterology
DX: K25.9 Gastric ulcer, unspecified as acute or chronic, without hemorrhage or perforation (principal); K26.9 Duodenal ulcer, unspecified as acute or chronic, without hemorrhage or perforation; K20.9 Esophagitis, unspecified; K29.50 Unspecified chronic gastritis without bleeding; I10 Essential (primary) hypertension; E11.9 Type 2 diabetes mellitus without complications; I25.10 Atherosclerotic heart disease of native coronary artery without angina pectoris; E78.5 Hyperlipidemia, unspecified; Z79.84 Long term (current) use of oral hypoglycemic drugs
CPT/HCPCS: 36415; 43239; 82948; 85025; 88305; 88342; J2704; J7030; J7040